=== PATIENT | male | born 1965 | race Caucasian/White ===

== ENCOUNTER 2016-09-03 17:31 | Inpatient (IN) | payer OTHER ==
[~2016-09-03] VITALS: Ht 177.8 cm; Wt 135.6 kg
[2016-09-03] VITALS (8 sets, daily range): BP systolic 118–145; BP diastolic 55–120
[2016-09-03] MEDS ORDERED: LOSA100T28 PO (17:53)
[2016-09-03] MEDS ORDERED: OMEP40CA36 PO (17:53)
[2016-09-03] MEDS ORDERED: CHRO400T10 PO (17:53)
[2016-09-03 18:25] LABS: BASOPHILS # (AUTO) 0.1 10^3/uL (0.0-0.1); BASOPHILS % (AUTO) 1 % (0-10); EOSINOPHILS # (AUTO) 0.1 10^3/uL (0.0-0.3); EOSINOPHILS % (AUTO) 1 % (0-10); LYMPHOCYTES # (AUTO) 1.1 X 10^3 (1.0-4.0); LYMPHOCYTES % (AUTO) 12 % (12-44); MEAN CORPUSCULAR HEMOGLOBIN 26 PG (25-34); MEAN CORPUSCULAR HGB CONC 33 G/DL (32-36); MEAN CORPUSCULAR VOLUME 80 FL (80-99); MEAN PLATELET VOLUME 12.5 FL (7.4-10.4); MONOCYTES # (AUTO) 0.7 X 10^3 (0.0-1.0); MONOCYTES % (AUTO) 7 % (0-12); NEUTROPHILS # (AUTO) 7.7 X 10^3 (1.8-7.8); NEUTROPHILS % (AUTO) 80 % (42-75); PLATELET COUNT 127 10^3/uL (130-400); RED CELL DISTRIBUTION WIDTH 14.2 % (10.0-14.5); WHITE BLOOD COUNT 9.6 10^3/uL (4.3-11.0)
[2016-09-03] MEDS ORDERED: KETOROLAC 30 MG/ML VIAL IVP ONE (18:30)
--- NOTE | 2016-09-03 18:31 | ED Abdominal Pain ---
General Chief Complaint: Abdominal/GI Problems Stated Complaint: TROUBLE WALKING;STOMACH SWELLING;TROUBLE BREATHING Nursing Triage Note: patient reports bloating with diarrhea for months, getting worse the past couple of weeks. reports is having a difficulty time breathing due to the bloating Sepsis Screen: No Definite Risk Source of Information: Patient, RN Notes Reviewed Exam Limitations: No Limitations History of Present Illness Time Seen By Provider: 18:26 Initial Comments Patient presents c/ c/o abdominal bloating/pain that began couple months ago and has gradually worsened, especially the last 2-3 weeks. Having diarrhea but patient states that is from the laxatives he has been taking for the bloating. Subjective fever last 2 weeks. (+) nausea, but no vomiting, although states he thinks he'd feel a lot better if he could throw up. Denies any problems garza. Never had anything like this before. Did have back surgery where they went both anteriorly thru his abdomen, as well as posteriorly. Pain described as cramping and rated @ a 3/10. Side note, patient is diabetic but can't afford his diabetic medication, so isn't taking anything. Apparently hasn't seen a doctor in quite sometime. Timing/Duration: Getting Worse, Other (see above) Severity/Quality: Mild (3/10) Location: Periumbilical Radiation: No Radiation Activities at Onset: None Modifying Factors: Worsens With Movement Associated Symptoms: Shortness of Air, Swelling/Mass in Abdomen, Other (nausea s/ vomiting; hot and cold flashes; diarrhea) Allergies and Home Medications Allergies Coded Allergies: oxycodone (Verified Adverse Reaction, Unknown, NAUSEA, 09/03/16) Home Medications Chromium Amino Acid Chelate 400 Mcg Tablet, 400 MCG PO, (Reported) Losartan Potassium 100 Mg Tablet, 100 MG PO DAILY, (Reported) Omeprazole 40 Mg Capsule.dr, 40 MG PO, (Reported) Review of Systems Constitutional: see HPI, chills (hot and cold flashes last 2 weeks), fever ( subjective) Respiratory: See HPI, Shortness of Air, SOA With Exertion, SOA at Rest Gastrointestinal: See HPI, Abdomen Distended, Abdominal Pain, Diarrhea, Nausea , Denies Vomiting Endocrine: See HPI, Excessive Sweating (episodic) All Other Systems Reviewed Negative Unless Noted: Yes (Negative excepted noted.) Past Emkumcz-Fnwrge-Tupdbj Hx Patient Social History Alcohol Use: Rarely Uses Recreational Drug Use: No Smoking Status: Never a Smoker Recent Foreign Travel: No Contact w/Someone Who Travel: No Recent Infectious Disease Expo: No Surgeries Surgeries: Orthopedic Cardiovascular Cardiac Disorders: Hypertension Gastrointestinal Gastrointestinal Disorders: Gastroesophageal Reflux Endocrine Endocrine Disorders: Diabetes, Non-Insulin dep Physical Exam Vital Signs VS - Last 72 Hours, by Label 09/03/16 17:49 Temp 98.5 Pulse 112 Resp 20 B/P (MAP) 128/95 Pulse Ox 98 Capillary Refill : Less Than 3 Seconds General Appearance: WD/WN, obese, other (appears uncomfortable) HEENT: other (oral mucosa a little on the dry side) Respiratory: no respiratory distress, crackles Cardiovascular: tachycardia Gastrointestinal: distended, guarding, No rebound, tenderness, hernia (easily reducible umbilical hernia noted.) Rectal: deferred Neurologic/Psychiatric: no motor/sensory deficits, alert, oriented x 3 Skin: warm/dry Progress/Results/Core Measures Results/Orders Lab Results Laboratory Tests Test 09/03/16 17:55 09/03/16 18:46 Range/Units White Blood Count 9.6 4.3-11.0 10^3/uL Red Blood Count 5.50 4.35-5.85 10^6/uL Hemoglobin 14.4 13.3-17.7 G/DL Hematocrit 44 40-54 % Mean Corpuscular Volume 80 80-99 FL Mean Corpuscular Hemoglobin 26 25-34 PG Mean Corpuscular Hemoglobin Concent 33 32-36 G/DL Red Cell Distribution Width 14.2 10.0-14.5 % Platelet Count 127 L 130-400 10^3/uL Mean Platelet Volume 12.5 H 7.4-10.4 FL Neutrophils (%) (Auto) 80 H 42-75 % Lymphocytes (%) (Auto) 12 12-44 % Monocytes (%) (Auto) 7 0-12 % Eosinophils (%) (Auto) 1 0-10 % Basophils (%) (Auto) 1 0-10 % Neutrophils # (Auto) 7.7 1.8-7.8 X 10^3 Lymphocytes # (Auto) 1.1 1.0-4.0 X 10^3 Monocytes # (Auto) 0.7 0.0-1.0 X 10^3 Eosinophils # (Auto) 0.1 0.0-0.3 10^3/uL Basophils # (Auto) 0.1 0.0-0.1 10^3/uL D-Dimer 0.86 H 0.00-0.49 UG/ML Sodium Level 133 L 135-145 MMOL/L Potassium Level 4.8 3.6-5.0 MMOL/L Chloride Level 101 98-107 MMOL/L Carbon Dioxide Level 21 21-32 MMOL/L Anion Gap 11 5-14 MMOL/L Blood Urea Nitrogen 15 7-18 MG/DL Creatinine 1.29 0.60-1.30 MG/DL Estimat Glomerular Filtration Rate 59 BUN/Creatinine Ratio 12 Glucose Level 410 *H 70-105 MG/DL Calcium Level 8.9 8.5-10.1 MG/DL Magnesium Level 2.0 1.8-2.4 MG/DL Total Bilirubin 0.5 0.1-1.0 MG/DL Aspartate Amino Transf (AST/SGOT) 46 H 5-34 U/L Alanine Aminotransferase (ALT/SGPT) 52 0-55 U/L Alkaline Phosphatase 79 40-136 U/L Troponin I < 0.30 <0.30 NG/ML B-Type Natriuretic Peptide 264.6 H <100.0 PG/ML Total Protein 7.2 6.4-8.2 GM/DL Albumin 3.7 3.2-4.5 GM/DL Lipase 29 8-78 U/L Urine Color YELLOW Urine Clarity CLEAR Urine pH 5 5-9 Urine Specific [place] 1.015 L 1.016-1.022 Urine Protein 3+ H NEGATIVE Urine Glucose (UA) 4+ H NEGATIVE Urine Ketones NEGATIVE NEGATIVE Urine Nitrite NEGATIVE NEGATIVE Urine Bilirubin NEGATIVE NEGATIVE Urine Urobilinogen NORMAL NORMAL MG/DL Urine Leukocyte Esterase NEGATIVE NEGATIVE Urine RBC (Auto) NEGATIVE NEGATIVE Urine RBC NONE /HPF Urine WBC NONE /HPF Urine Crystals NONE /LPF Urine Bacteria NEGATIVE /HPF Urine Casts NONE /LPF Urine Mucus NEGATIVE /LPF Urine Culture Indicated NO My Orders Orders - NIKHIL YODER DO Saline Lock/Iv-Start (09/03/16 18:18) Cbc With Automated Diff (09/03/16 18:18) Comprehensive Metabolic Panel (09/03/16 18:18) Fibrin Degradation Products (09/03/16 18:19) Ua Culture If Indicated (09/03/16 18:27) Ketorolac Injection (Toradol Injection) (09/03/16 18:30) Lipase (09/03/16 17:55) Ct Abdomen/Pelvis W (09/03/16 18:45) Saline Lock/Iv-Start (09/03/16 18:46) Ns Iv 1000 Ml (Sodium Chloride 0.9%) (09/03/16 18:46) Iohexol Injection (Omnipaque 350 Mg/Ml 1 (09/03/16 19:00) Ns (Ivpb) (Sodium Chloride 0.9% Ivpb Bag (09/03/16 19:00) Ct Angio Chest W (09/03/16 19:16) Iohexol Injection (Omnipaque 350 Mg/Ml 1 (09/03/16 19:45) Ns (Ivpb) (Sodium Chloride 0.9% Ivpb Bag (09/03/16 19:45) BNP (09/03/16 20:45) Magnesium (09/03/16 20:45) Troponin I (09/03/16 20:45) Ekg Tracing (09/03/16 20:45) Medications Given in ED Current Medications Medications Dose Ordered Sig/Guille Route Start Time Stop Time Status Last Admin Dose Admin Iohexol 100 ml ONCE ONCE IV 09/03/16 19:00 09/03/16 19:01 DC 09/03/16 19:09 100 ML Iohexol 100 ml ONCE ONCE IV 09/03/16 19:45 09/03/16 19:46 DC 09/03/16 19:38 100 ML Ketorolac Tromethamine 30 mg ONCE ONCE IVP 09/03/16 18:30 09/03/16 20:33 DC 09/03/16 18:46 30 MG Sodium Chloride 100 ml ONCE ONCE IV 09/03/16 19:00 09/03/16 19:01 DC 09/03/16 19:09 80 ML Sodium Chloride 100 ml ONCE ONCE IV 09/03/16 19:45 09/03/16 19:46 DC 09/03/16 19:38 80 ML Sodium Chloride 1,000 ml @ 0 mls/hr Q0M ONCE IV 09/03/16 18:46 09/03/16 20:33 DC 09/03/16 18:51 0 MLS/HR Vital Signs/I&O Vital Sign - Last 12Hours 09/03/16 17:49 Temp 98.5 Pulse 112 Resp 20 B/P (MAP) 128/95 Pulse Ox 98 Blood Pressure Mean: 106 Progress Note : Progress Note Notified by lab of a glucose of 410. ECG Initial ECG Impression Date: Sep 03, 2016 Initial ECG Rhythm: S.Tach Initial ECG Impression: Normal Initial ECG Comparisson: No Previous ECG Available Diagnostic Imaging Diagonstic Imaging: CT Plain Films/CT/US/NM/MRI: chest, abdomen, pelvis Reviewed: Reviewed/Discussed Departure Communication Time/Spoke to Admitting Phy: 21:00 Impression Impression: Primary Impression: Abdominal pain Additional Impressions: Acute calculous cholecystitis New onset of congestive heart failure Uncontrolled NIDDM Non compliance w medication regimen Disposition: ADMITTED INPATIENT Condition: Stable Decision to Admit Reason: Admit from ER (General) Decision to Admit/Date: Sep 03, 2016 Time/Decision to Admit Time: 21:00 Departure-Patient Inst. Referrals: NO,LOCAL PHYSICIAN (PCP) Primary Care Physician NIKHIL YODER DO Sep 03, 2016 18:31
[2016-09-03 18:42] LABS: ALBUMIN 3.7 GM/DL (3.2-4.5); BILIRUBIN,TOTAL 0.5 MG/DL (0.1-1.0); CALCIUM 8.9 MG/DL (8.5-10.1); CREATININE SERUM 1.29 MG/DL (0.60-1.30); POTASSIUM 4.8 MMOL/L (3.6-5.0); TOTAL PROTEIN 7.2 GM/DL (6.4-8.2)
[2016-09-03] MEDS ORDERED: NS IV 1000 ML 1,000 ML IV ONE (18:46)
[2016-09-03] MEDS ORDERED: NS 100 ML (IVPB) BAG IV ONE ×2 (19:00→19:45)
[2016-09-03] MEDS ORDERED: IOHEXOL 350 MG/ML 100 ML (OMNIPAQUE 350) VIAL IV ONE ×2 (19:00→19:45)
[2016-09-03 19:22] LABS: BILIRUBIN,URINE NEGATIVE (NEGATIVE); KETONES,URINE NEGATIVE (NEGATIVE); LEUKOCYTE ESTERASE ,URINE NEGATIVE (NEGATIVE); NITRITE,URINE NEGATIVE (NEGATIVE); PH,URINE 5 (5-9); PROTEIN,URINE 3+ (NEGATIVE); UROBILINOGEN,URINE NORMAL (NORMAL)
--- NOTE | 2016-09-03 20:30 | Diagnostic Imaging Report ---
PROCEDURE: CT abdomen and pelvis with contrast. TECHNIQUE: Multiple contiguous axial images were obtained through the abdomen and pelvis after administration of intravenous contrast. INDICATION: Bloating. Shortness of air. Belching. COMPARISON: CT chest from same day. FINDINGS: Included views of the lung bases show small right pleural effusion. A 1 mm micronodule is also noted within the included portions of the right middle lobe. Please note, CT of the chest was also performed the same day, but separately dictated. Note is also made of septal thickening and subtle alveolar groundglass densities. CT ABDOMEN: There is abnormal appearance to the gallbladder. Gallbladder wall is abnormally thickened. There is also some stranding of the fat surrounding the gallbladder. Small amount of free fluid is also noted within the right upper abdominal quadrant (image 34, series 2). Small hypodensity within the lumen of the gallbladder on the delayed sequence suggests underlying gallstones. The liver, spleen, pancreas, adrenal glands and kidneys have a normal CT appearance. There is no free air or loculated air-fluid collection within the abdomen. There is abnormal stranding of the retroperitoneal fat extending from the right upper abdominal quadrant surrounding the gallbladder and duodenum, inferiorly, into the right hemipelvis. Small bowel loops are nondistended and normal appendix is identified. Multiple subcentimeter retroperitoneal lymph nodes are noted. A few prominent, yet subcentimeter, celiac lymph nodes are also seen. There is a dominant portacaval lymph node that measures 4.3 x 2.3 cm. Bony structures show no acute abnormalities. Note is made of fat-containing umbilical hernia. Ostium measures approximately 2.7 [address] in transverse dimension. CT PELVIS: Urinary bladder is grossly unremarkable. There is no loculated fluid collection, free fluid or free air within the pelvis. No abnormal lymph nodes are seen. Bony structures show no acute abnormality. Postsurgical changes of the lumbosacral spine are noted. IMPRESSION: 1. Probable cholelithiasis with acute cholecystitis. Correlation with right upper quadrant abdominal sonogram is recommended. 2. Small right-sided pleural effusion. 3. Septal thickening with groundglass alveolar densities within the included portions of the lung bases concerning for underlying pulmonary edema. 4. Prominent portacaval lymph node and a few subcentimeter yet prominent appearing celiac lymph nodes. Findings may be reactive and related to the above. 5. Fat-containing umbilical hernia. Report was called to Indira in the [facility] ER at 8:27 p.m., by vilma. Dictated by: Dictated on workstation # [id number]
--- NOTE | 2016-09-03 20:35 | Diagnostic Imaging Report ---
PROCEDURE: CT angiography of the chest with contrast. TECHNIQUE: Multiple contiguous axial images were obtained through the chest after uneventful bolus administration of intravenous contrast. Reconstructed CTA MIP acquisitions were also performed. INDICATION: Elevated d-dimer. Shortness of air. Bloating and belching COMPARISON: CT abdomen from same day FINDINGS: There is no evidence of acute pulmonary embolus to the segmental division of the pulmonary arteries. Evaluation beyond this is suboptimal secondary to suboptimal opacification by the contrast bolus. Heart size is within normal limits. There is a small pericardial effusion. Multiple prominent mediastinal and bilateral hilar lymph nodes are identified. Largest left hilar lymph node measures 1.4 x 2.1 cm (image 55, series 5). Largest right hilar lymph node measures approximately 2.7 x 1.5 cm (image 59, series 5). Largest mediastinal lymph node measures 1.5 x 1.1 cm (image 40, series 5). No abnormal axillary adenopathy is seen. Evaluation of the lung meredith demonstrates small right pleural effusion. There is trace left effusion as well. There is diffuse prominence of the septum as well as subtle diffuse groundglass alveolar opacities. Findings are suggestive of underlying pulmonary edema. Otherwise, no focal consolidation is seen. There is no pneumothorax on either side. A 4 mm micronodule is noted within the subpleural margins of the included portion of the right middle lobe, laterally (image 95, series 5). Bony structures show age-related degenerative changes. No lytic or blastic bony lesions are seen. Included portions of the upper abdomen show multiple borderline prominent celiac and portacaval lymph nodes. Dominant portacaval lymph node seen on separately performed CT abdomen is only partially visualized on this exam. Additionally, the cholelithiasis with associated findings of probable acute cholecystitis are not included. IMPRESSION: 1. No evidence of acute pulmonary embolus to the segmental division of the pulmonary arteries. 2. Multiple prominent bilateral hilar and mediastinal lymph nodes as described above. Clinical significance and etiology is indeterminate. Clinical correlation for underlying lymphoproliferative or lympho-invasive process is recommended. Lymphoma should be considered within the differential. 3. Small pericardial effusion and small bilateral effusions, right greater than left. 4. Findings consistent with pulmonary edema. 5. A 4 mm micronodule within the included portion of the right middle lobe. If patient is in a high-risk category such as history of smoking, one-year followup is recommended. Alternatively, if the patient is in a low-risk category, no additional followup may be indicated. Dictated by: Dictated on workstation # [id number]
[2016-09-03 21:09] LABS: TROPONIN I < 0.30 NG/ML (<0.30)
[2016-09-03] MEDS ORDERED: KETOROLAC 30 MG/ML VIAL IV PRN (22:45)
[2016-09-03] MEDS ORDERED: FUROSEMIDE 40 MG/4 ML INJ (LASIX) IV ONE (22:45)
[2016-09-03] MEDS ORDERED: CATHETER FLUSH 10 ML SYR IV PRN (22:45)
[2016-09-03] MEDS ORDERED: PIPERACILLIN/TAZOBACTAM 4.5 GM/NS 100 ML IV ONE ×2 (23:00)
[2016-09-03] MEDS: NS IV 1000 ML 1,000 ML IV SCH (23:07)
[2016-09-04] VITALS (27 sets, daily range): BP systolic 103–137; BP diastolic 73–120
[2016-09-04] MEDS: inSUlin ASPART (NovoLOG) 1 UNIT/0.01 ML (CHARGE PER UNIT) SC SCH ×6 (00:08→22:25)
[2016-09-04] MEDS: ONDANSETRON 4 MG/2 ML (SDV) Z0FRAN IV PRN ×3 (00:13→22:45)
[2016-09-04] MEDS: CATHETER FLUSH 10 ML SYR IV SCH ×3 (04:14→22:25)
[2016-09-04] MEDS: PIPERACILLIN/TAZOBACTAM 4.5 GM/NS 100 ML IVPB IV SCH ×6 (04:29→22:23)
[2016-09-04 04:47] LABS: BASOPHILS # (AUTO) 0.1 10^3/uL (0.0-0.1); BASOPHILS % (AUTO) 1 % (0-10); EOSINOPHILS # (AUTO) 0.2 10^3/uL (0.0-0.3); EOSINOPHILS % (AUTO) 2 % (0-10); LYMPHOCYTES # (AUTO) 1.4 X 10^3 (1.0-4.0); LYMPHOCYTES % (AUTO) 14 % (12-44); MEAN CORPUSCULAR HEMOGLOBIN 26 PG (25-34); MEAN CORPUSCULAR HGB CONC 32 G/DL (32-36); MEAN CORPUSCULAR VOLUME 80 FL (80-99); MONOCYTES # (AUTO) 0.8 X 10^3 (0.0-1.0); MONOCYTES % (AUTO) 9 % (0-12); NEUTROPHILS # (AUTO) 7.4 X 10^3 (1.8-7.8); NEUTROPHILS % (AUTO) 75 % (42-75); PLATELET COUNT 125 10^3/uL (130-400); RED BLOOD COUNT 5.31 10^6/uL (4.35-5.85); RED CELL DISTRIBUTION WIDTH 14.4 % (10.0-14.5); WHITE BLOOD COUNT 9.8 10^3/uL (4.3-11.0)
[2016-09-04] MEDS: NS IV 1000 ML 1,000 ML IV SCH ×3 (05:00→22:23)
[2016-09-04 05:17] LABS: ANION GAP 9 MMOL/L (5-14); BLOOD UREA NITROGEN 18 MG/DL (7-18); BUN/CREATININE RATIO 17; CALCIUM 8.6 MG/DL (8.5-10.1); CARBON DIOXIDE 23 MMOL/L (21-32); CHLORIDE 104 MMOL/L (98-107); CREATININE SERUM 1.05 MG/DL (0.60-1.30); GFR ESTIMATED > 60; GLUCOSE 220 MG/DL (70-105); MAGNESIUM 1.9 MG/DL (1.8-2.4); POTASSIUM 4.3 MMOL/L (3.6-5.0); SODIUM 136 MMOL/L (135-145)
[2016-09-04] MEDS ORDERED: inSUlin (REGULAR) HUMAN 1 UNIT/0.01 ML (CHARGE PER UNIT) SC SCH (06:00)
[2016-09-04] MEDS: RT-ALBUTEROL/IPRATROPIUM 3 ML (DUONEB) VIAL INH SCH ×4 (06:38→19:06)
[2016-09-04] MEDS: FAMOTIDINE 20MG/2ML IV (PEPCID) IV SCH ×2 (08:12→22:24)
[2016-09-04] MEDS ORDERED: RT-ALBUTEROL/IPRATROPIUM 3 ML (DUONEB) VIAL INH PRN (09:00)
--- NOTE | 2016-09-04 09:25 | Diagnostic Imaging Report ---
INDICATION: Abdominal pain. TECHNIQUE: Multiple grayscale sonographic images were obtained of the right upper quadrant of the abdomen. CORRELATION STUDY: None FINDINGS: LIVER: The liver measures 25 cm. There is uniform echotexture. GALLBLADDER: Gallbladder is present and demonstrates no shadowing gallstones. There is suggestion of some gallbladder wall thickening at approximately 4-5 mm. COMMON BILE DUCT: Upper limits of normal for the patient's age at 7 mm. PANCREAS: Largely obscured and not visualized. RIGHT KIDNEY: Measures 13.4 cm. No hydronephrosis. OTHER: None. IMPRESSION: 1. Hepatomegaly. 2. No shadowing gallstones, however there is suggestion of some gallbladder wall thickening as well as common bile duct being upper limits of normal. Findings are nonspecific. If further assessment is desired, particularly for evaluation of ejection fraction, nuclear medicine HIDA scan would be recommended. Dictated by: Dictated on workstation # [id number]
--- NOTE | 2016-09-04 09:31 | Diagnostic Imaging Report ---
INDICATION: Dyspnea. Comparison made with prior examination from 09/04/16 FINDINGS: There is cardiomegaly. There is some minimal venous congestion. There is no pleural effusion or pneumothorax. The mediastinum is unremarkable. IMPRESSION: Cardiomegaly and some minimal central pulmonary venous congestion. Dictated by: Dictated on workstation # [id number]
--- NOTE | 2016-09-04 09:33 | Consultation-Cardiology ---
HPI-Cardiology Cardiology Consultation Date of Consultation 09/04/16 Date of Admission Time Seen by Provider: 09:28 Indication: shortness of breath HPI 50 years old gentleman with history of hypertension, diabetes mellitus, was having increasing shortness of breath for the last 3-4 months, dyspnea with minimal exertion, his exercise ability is limited due to injury to his left leg. Has been having worsening orthopnea, denied any chest pain, for the last few days he started having increasing abdominal distention and abdominal pain. No fever or chills. No nausea or vomiting. Denied any syncope or near syncopal episode, came into the hospital, noted to have mild pulmonary edema and elevated BNP in addition to questionable cholecystitis Home Medications & Allergies Allergies: Coded Allergies: oxycodone (Verified Adverse Reaction, Unknown, NAUSEA, 09/03/16) Home Medication List Reviewed: Yes HFW-Savwyj-Nuynti Hx Patient Social History Marital Status: single Employed/Student: unemployed Alcohol Use: Denies Use Recreational Drug Use: No Smoking Status: Former Smoker Recent Foreign Travel: No Recent Infectious Disease Expo: No Recent Hopitalizations: No Physical Abuse Screen: No Sexual Abuse: No Past Medical History Past medical history as discussed below Family Medical History Family History: 19 FATHER Neoplasm (LUNG CANCER) Arthritis Colon cancer 19 MOTHER Neoplasm (PANCREATIC CANCER) Arthritis Headache disorder Thyroid disease Constitutional: see HPI, malaise, weakness EENTM: no symptoms reported, see HPI Respiratory: see HPI, dyspnea on exertion, orthopnea, short of breath Cardiovascular: see HPI, No chest pain, edema, No Hx of Intervention, No palpitations, No syncope, No vascular heart diseas, No other Gastrointestinal: RUQ, see HPI, abdominal pain (RUQ), loss of appetite Genitourinary: no symptoms reported, see HPI Musculoskeletal: see HPI, back pain, joint pain, muscle pain Skin: no symptoms reported, see HPI Psychiatric/Neurological: No Symptoms Reported, See HPI Reviewed Test Results Reviewed Test Results Lab Laboratory Tests Test 09/03/16 17:55 09/03/16 18:46 09/03/16 23:13 09/03/16 23:51 Range/Units White Blood Count 9.6 4.3-11.0 10^3/uL Red Blood Count 5.50 4.35-5.85 10^6/uL Hemoglobin 14.4 13.3-17.7 G/DL Hematocrit 44 40-54 % Mean Corpuscular Volume 80 80-99 FL Mean Corpuscular Hemoglobin 26 25-34 PG Mean Corpuscular Hemoglobin Concent 33 32-36 G/DL Red Cell Distribution Width 14.2 10.0-14.5 % Platelet Count 127 L 130-400 10^3/uL Mean Platelet Volume 12.5 H 7.4-10.4 FL Neutrophils (%) (Auto) 80 H 42-75 % Lymphocytes (%) (Auto) 12 12-44 % Monocytes (%) (Auto) 7 0-12 % Eosinophils (%) (Auto) 1 0-10 % Basophils (%) (Auto) 1 0-10 % Neutrophils # (Auto) 7.7 1.8-7.8 X 10^3 Lymphocytes # (Auto) 1.1 1.0-4.0 X 10^3 Monocytes # (Auto) 0.7 0.0-1.0 X 10^3 Eosinophils # (Auto) 0.1 0.0-0.3 10^3/uL Basophils # (Auto) 0.1 0.0-0.1 10^3/uL D-Dimer 0.86 H 0.00-0.49 UG/ML Sodium Level 133 L 135-145 MMOL/L Potassium Level 4.8 3.6-5.0 MMOL/L Chloride Level 101 98-107 MMOL/L Carbon Dioxide Level 21 21-32 MMOL/L Anion Gap 11 5-14 MMOL/L Blood Urea Nitrogen 15 7-18 MG/DL Creatinine 1.29 0.60-1.30 MG/DL Estimat Glomerular Filtration Rate 59 BUN/Creatinine Ratio 12 Glucose Level 410 *H 70-105 MG/DL Calcium Level 8.9 8.5-10.1 MG/DL Magnesium Level 2.0 1.8-2.4 MG/DL Total Bilirubin 0.5 0.1-1.0 MG/DL Aspartate Amino Transf (AST/SGOT) 46 H 5-34 U/L Alanine Aminotransferase (ALT/SGPT) 52 0-55 U/L Alkaline Phosphatase 79 40-136 U/L Troponin I < 0.30 <0.30 NG/ML B-Type Natriuretic Peptide 264.6 H <100.0 PG/ML Total Protein 7.2 6.4-8.2 GM/DL Albumin 3.7 3.2-4.5 GM/DL Lipase 29 8-78 U/L Urine Color YELLOW Urine Clarity CLEAR Urine pH 5 5-9 Urine Specific [place] 1.015 L 1.016-1.022 Urine Protein 3+ H NEGATIVE Urine Glucose (UA) 4+ H NEGATIVE Urine Ketones NEGATIVE NEGATIVE Urine Nitrite NEGATIVE NEGATIVE Urine Bilirubin NEGATIVE NEGATIVE Urine Urobilinogen NORMAL NORMAL MG/DL Urine Leukocyte Esterase NEGATIVE NEGATIVE Urine RBC (Auto) NEGATIVE NEGATIVE Urine RBC NONE /HPF Urine WBC NONE /HPF Urine Crystals NONE /LPF Urine Bacteria NEGATIVE /HPF Urine Casts NONE /LPF Urine Mucus NEGATIVE /LPF Urine Culture Indicated NO Hemoglobin A1c 10.6 H 4.5-6.2 % Glucometer 224 H 70-110 MG/DL Test 09/04/16 03:47 Range/Units White Blood Count 9.8 4.3-11.0 10^3/uL Red Blood Count 5.31 4.35-5.85 10^6/uL Hemoglobin 13.8 13.3-17.7 G/DL Hematocrit 43 40-54 % Mean Corpuscular Volume 80 80-99 FL Mean Corpuscular Hemoglobin 26 25-34 PG Mean Corpuscular Hemoglobin Concent 32 32-36 G/DL Red Cell Distribution Width 14.4 10.0-14.5 % Platelet Count 125 L 130-400 10^3/uL Mean Platelet Volume 12.0 H 7.4-10.4 FL Neutrophils (%) (Auto) 75 42-75 % Lymphocytes (%) (Auto) 14 12-44 % Monocytes (%) (Auto) 9 0-12 % Eosinophils (%) (Auto) 2 0-10 % Basophils (%) (Auto) 1 0-10 % Neutrophils # (Auto) 7.4 1.8-7.8 X 10^3 Lymphocytes # (Auto) 1.4 1.0-4.0 X 10^3 Monocytes # (Auto) 0.8 0.0-1.0 X 10^3 Eosinophils # (Auto) 0.2 0.0-0.3 10^3/uL Basophils # (Auto) 0.1 0.0-0.1 10^3/uL Sodium Level 136 135-145 MMOL/L Potassium Level 4.3 3.6-5.0 MMOL/L Chloride Level 104 98-107 MMOL/L Carbon Dioxide Level 23 21-32 MMOL/L Anion Gap 9 5-14 MMOL/L Blood Urea Nitrogen 18 7-18 MG/DL Creatinine 1.05 0.60-1.30 MG/DL Estimat Glomerular Filtration Rate > 60 BUN/Creatinine Ratio 17 Glucose Level 220 H 70-105 MG/DL Calcium Level 8.6 8.5-10.1 MG/DL Phosphorus Level 4.0 2.3-4.7 MG/DL Magnesium Level 1.9 1.8-2.4 MG/DL Physical Exam Vital Signs Vital Sign - Last 12Hours 09/03/16 09/03/16 09/04/16 17:49 22:05 06:39 Temp 98.5 Pulse 112 Resp 20 B/P (MAP) 128/95 Pulse Ox 98 O2 Delivery Room Air O2 Flow Rate 2.00 Capillary Refill : Less Than 3 Seconds General Appearance: No Apparent Distress, WD/WN Eyes: Bilateral Eye EOMI, Bilateral Eye Normal Inspection, Bilateral Eye PERRL HEENT: PERRL/EOMI, TMs Normal, Normal ENT Inspection, Pharynx Normal Neck: Full Range of Motion, Normal Inspection, Non Tender, Supple, Carotid Bruit Respiratory: Chest Non Tender, Lungs Clear, Normal Breath Sounds, No Accessory Muscle Use, No Respiratory Distress Cardiovascular: Regular Rate, Rhythm, No Edema, No Gallop, No JVD, No Murmur, Normal Peripheral Pulses Gastrointestinal: Normal Bowel Sounds, No Organomegaly, No Pulsatile Mass, Non Tender, Soft Back: Normal Inspection, No CVA Tenderness, No Vertebral Tenderness Extremity: Normal Capillary Refill, Normal Inspection, Normal Range of Motion, Non Tender, No Calf Tenderness, No Pedal Edema Neurologic/Psychiatric: Alert, Oriented x3, No Motor/Sensory Deficits, Normal Mood/Affect Skin: Normal Color, Warm/Dry Lymphatic: No Adenopathy A/P-Cardiology Admission Diagnosis shortness of breath Cholecystitis Hypertension Diabetes mellitus Assessment/Plan Increasing shortness of breath, mild pulmonary edema and elevated BNP, I will evaluate 2-D echocardiogram. Start on Lasix and evaluate his response. Mild pedal edema secondary to injury to his leg, had surgery to his leg. Abdominal pain, abdominal distention, thickened gallbladder robin and mildly dilated common bile duct, prominent liver, questionable cholecystitis, Dr. Sharp consulted. Hypertension, restart home medication monitor blood pressure Diabetes mellitus, followed and managed by primary care physician Obesity, BMI 43. Discussed weight loss. High risk for sleep apnea, consider sleep study as an outpatient. Clinical Quality Measures DVT/VTE Risk/Contraindication: Risk Factor Score Per Nursin RFS Level Per Nursing on Admit: 2=Moderate WILLIAM CHACON MD Sep 04, 2016 09:33
[2016-09-04] MEDS ORDERED: FUROSEMIDE 40 MG/4 ML INJ (LASIX) IVP NR (09:45)
--- NOTE | 2016-09-04 11:41 | Consultation ---
History of Present Illness History of Present Illness Patient Consulted On(oksana/time) 09/04/16 11:36 Date Seen by Provider: Sep 04, 2016 Time Seen by Provider: 11:36 Reason for Visit: shortness of breath History of Present Illness chief complaint shortness of breath abdominal pain. Consult requested by Dr. Austin for possible cholelithiasis cholecystitis. Patient is a 50-year-old male who presents with increasing shortness of breath and abdominal pain/distention that he's had for approximately 3 months but worsening over the last 2 or 3 weeks. Patient states that his abdomen gets more distended and uncomfortable which she rates the pain about 3 out of 10 which is currently upper generalized distribution of pain. Patient was taking some laxatives in order to help try to improve the abdominal distention and discomfort. patient has also had some nausea and also subjective fever He was having some loose stools but that has improved. He is a khn-vkghfoi-zrysjsexl diabetic with uncontrolled due to not taking his medication. He has been having shortness of breath with minimal exertion. Patient had a CT scan demonstrating operable cholelithiasis with acute cholecystitis right-sided pleural effusion concern for pulmonary edema a portacaval lymph node which may be reactive secondary to cholecystitis and umbilical hernia that was fat- containing. He then had a bladder ultrasound which demonstrated gallbladder wall thickening and the common bile duct at the upper limits of normal.patient with no other complaints at this time. He denies any vomiting sweats chills or chest pain. Allergies and Home Medications Allergies Coded Allergies: oxycodone (Verified Adverse Reaction, Unknown, NAUSEA, 09/03/16) Home Medications Chromium Amino Acid Chelate 400 Mcg Tablet, 400 MCG PO, (Reported) Losartan Potassium 100 Mg Tablet, 100 MG PO DAILY, (Reported) Omeprazole 40 Mg Capsule.dr, 40 MG PO, (Reported) Past Jijevxz-Trehst-Vwbzpj Hx Patient Social History Alcohol Use: Denies Use Recreational Drug Use: Yes (marijuana) Drug of Choice: Marijuana Smoking Status: Former Smoker Recent Foreign Travel: No Contact w/Someone Who Travel: No Recent Infectious Disease Expo: No Recent Hopitalizations: No Physical Abuse Screen: No Sexual Abuse: No Seasonal Allergies Seasonal Allergies: Yes Surgeries HX Surgeries: Yes Surgeries: Orthopedic Respiratory Respiratory Disorders: Sleep Apnea Cardiovascular Cardiac Disorders: Hypertension Reproductive System Sexually Transmitted Disease: No HIV/AIDS: No Gastrointestinal Gastrointestinal Disorders: Gastroesophageal Reflux Musculoskeletal Musculoskeletal Disorders: Arthritis, Back Injury, Fractures Endocrine Endocrine Disorders: Diabetes, Non-Insulin dep Blood Transfusions Adverse Reaction to a Blood Tr: No Family Medical History Significant Family History: No Pertinent Family Hx Family Medial History: Arthritis 19 FATHER 19 MOTHER Colon cancer 19 FATHER Headache disorder 19 MOTHER Neoplasm 19 FATHER (LUNG CANCER) 19 MOTHER (PANCREATIC CANCER) Thyroid disease 19 MOTHER Review of Systems-General Constitutional: see HPI EENTM: no symptoms reported Respiratory: see HPI Cardiovascular: no symptoms reported Gastrointestinal: see HPI Genitourinary: no symptoms reported Musculoskeletal: no symptoms reported Skin: no symptoms reported Psychiatric/Neurological: No Symptoms Reported Physical Exam-General Problems Physical Exam Vital Signs Vital Sign - Last 12Hours 09/03/16 09/03/16 09/04/16 17:49 22:05 06:39 Temp 98.5 Pulse 112 Resp 20 B/P (MAP) 128/95 Pulse Ox 98 O2 Delivery Room Air O2 Flow Rate 2.00 Capillary Refill : Less Than 3 Seconds General Appearance: no apparent distress HEENT: PERRL/EOMI, normal ENT inspection Neck: supple Respiratory: no respiratory distress, no accessory muscle use Cardiovascular: regular rate, rhythm Gastrointestinal: soft (umbilical hernia reducible, minimal tenderness on epigastric region on palpation no appreciable organomegaly) Rectal: deferred Back: no CVA tenderness Extremities: pedal edema (minimal) Skin: warm/dry Data Review Labs Laboratory Tests 09/03/16 17:55: White Blood Count 9.6, Red Blood Count 5.50, Hemoglobin 14.4, Hematocrit 44, Mean Corpuscular Volume 80, Mean Corpuscular Hemoglobin 26, Mean Corpuscular Hemoglobin Concent 33, Red Cell Distribution Width 14.2, Platelet Count 127L, Mean Platelet Volume 12.5H, Neutrophils (%) (Auto) 80H, Lymphocytes (%) (Auto) 12, Monocytes (%) (Auto) 7, Eosinophils (%) (Auto) 1, Basophils (%) (Auto) 1, Neutrophils # (Auto) 7.7, Lymphocytes # (Auto) 1.1, Monocytes # (Auto) 0.7, Eosinophils # (Auto) 0.1, Basophils # (Auto) 0.1, D-Dimer 0.86H, Sodium Level 133L, Potassium Level 4.8, Chloride Level 101, Carbon Dioxide Level 21, Anion Gap 11, Blood Urea Nitrogen 15, Creatinine 1.29, Estimat Glomerular Filtration Rate 59, BUN/Creatinine Ratio 12, Glucose Level 410*H, Calcium Level 8.9, Magnesium Level 2.0, Total Bilirubin 0.5, Aspartate Amino Transf (AST/SGOT) 46H , Alanine Aminotransferase (ALT/SGPT) 52, Alkaline Phosphatase 79, Troponin I < 0.30, B-Type Natriuretic Peptide 264.6H, Total Protein 7.2, Albumin 3.7, Lipase 29 09/03/16 18:46: Urine Color YELLOW, Urine Clarity CLEAR, Urine pH 5, Urine Specific [place] 1.015L, Urine Protein 3+H, Urine Glucose (UA) 4+H, Urine Ketones NEGATIVE, Urine Nitrite NEGATIVE, Urine Bilirubin NEGATIVE, Urine Urobilinogen NORMAL, Urine Leukocyte Esterase NEGATIVE, Urine RBC (Auto) NEGATIVE, Urine RBC NONE, Urine WBC NONE, Urine Crystals NONE, Urine Bacteria NEGATIVE, Urine Casts NONE, Urine Mucus NEGATIVE, Urine Culture Indicated NO 09/03/16 23:13: Hemoglobin A1c 10.6H 09/03/16 23:51: Glucometer 224H 09/04/16 03:47: White Blood Count 9.8, Red Blood Count 5.31, Hemoglobin 13.8, Hematocrit 43, Mean Corpuscular Volume 80, Mean Corpuscular Hemoglobin 26, Mean Corpuscular Hemoglobin Concent 32, Red Cell Distribution Width 14.4, Platelet Count 125L, Mean Platelet Volume 12.0H, Neutrophils (%) (Auto) 75, Lymphocytes (%) (Auto) 14 , Monocytes (%) (Auto) 9, Eosinophils (%) (Auto) 2, Basophils (%) (Auto) 1, Neutrophils # (Auto) 7.4, Lymphocytes # (Auto) 1.4, Monocytes # (Auto) 0.8, Eosinophils # (Auto) 0.2, Basophils # (Auto) 0.1, Sodium Level 136, Potassium Level 4.3, Chloride Level 104, Carbon Dioxide Level 23, Anion Gap 9, Blood Urea Nitrogen 18, Creatinine 1.05, Estimat Glomerular Filtration Rate > 60, BUN/ Creatinine Ratio 17, Glucose Level 220H, Calcium Level 8.6, Phosphorus Level 4.0 , Magnesium Level 1.9 Assessment/Plan Assessment/Plan Assessment/Plan Abdominal pain epigastric region, cholecystitis possible cholelithiasis., Shortness of breath, obesity, kht-ewriamf-qznuarxql diabetic, hypertension Patient is a 50-year-old male is radial artery studies demonstrating possible cholelithiasis and acute cholecystitis by CT scan with ultrasound demonstrating gallbladder wall thickening and common bile duct at upper limits of normal. I feel that with these findings his gallbladder should be removed. We discussed risk and benefits of laparoscopic cholecystectomy with intraoperative cholangiogram possible open. He understands risk and benefits and wishes to proceed. I did discuss with Dr. Arroyo who would like to get an echo that was okay with proceeding with cholecystectomy tomorrow. Patient also discussed with the patient possibly repairing umbilical hernia at the same time. Which he understands risk and benefits of that as well. Patient is to continue on Zosyn at this time. Continue medical management. Clinical Quality Measures DVT/VTE Risk/Contraindication: Risk Factor Score Per Nursin RFS Level Per Nursing on Admit: 2=Moderate KARLA PRICE DO Sep 04, 2016 11:41
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
[2016-09-04] MEDS: FUROSEMIDE 40 MG/4 ML INJ (LASIX) IVP SCH (16:27)
[2016-09-04] MEDS ORDERED: meTOprolol 5 MG/5 ML (LOPRESSOR) VIAL IV ONE (17:30)
[2016-09-04] MEDS: CARVEDILOL 3.125 MG (COREG) TABLET PO SCH (22:24)
[2016-09-04] MEDS: SACUBITRIL/VALSARTAN 24/26 MG (ENTRESTO) TABLET PO SCH (22:24)
[2016-09-05] VITALS (22 sets, daily range): BP systolic 95–148; BP diastolic 68–112
[2016-09-05] MEDS: inSUlin ASPART (NovoLOG) 1 UNIT/0.01 ML (CHARGE PER UNIT) SC SCH ×6 (00:09→22:11)
[2016-09-05] MEDS ORDERED: NITROGLYCERIN SUBLINGUAL 0.4 MG TAB (NITROSTAT) SL ONE (03:29)
[2016-09-05 03:53] LABS: BASOPHILS # (AUTO) 0.1 10^3/uL (0.0-0.1); BASOPHILS % (AUTO) 1 % (0-10); EOSINOPHILS # (AUTO) 0.1 10^3/uL (0.0-0.3); EOSINOPHILS % (AUTO) 1 % (0-10); LYMPHOCYTES # (AUTO) 1.4 X 10^3 (1.0-4.0); LYMPHOCYTES % (AUTO) 14 % (12-44); MEAN CORPUSCULAR HEMOGLOBIN 26 PG (25-34); MEAN CORPUSCULAR HGB CONC 32 G/DL (32-36); MEAN CORPUSCULAR VOLUME 80 FL (80-99); MEAN PLATELET VOLUME 11.5 FL (7.4-10.4); MONOCYTES % (AUTO) 10 % (0-12); NEUTROPHILS # (AUTO) 7.2 X 10^3 (1.8-7.8); NEUTROPHILS % (AUTO) 74 % (42-75); PLATELET COUNT 136 10^3/uL (130-400); RED BLOOD COUNT 5.23 10^6/uL (4.35-5.85); RED CELL DISTRIBUTION WIDTH 14.5 % (10.0-14.5); WHITE BLOOD COUNT 9.8 10^3/uL (4.3-11.0)
[2016-09-05] MEDS ORDERED: NITROGLYCERIN SUBLINGUAL 0.4 MG TAB (NITROSTAT) SL PRN (04:00)
[2016-09-05 04:31] LABS: ALANINE AMINOTRANSFERASE 44 U/L (0-55); ALBUMIN 3.5 GM/DL (3.2-4.5); ANION GAP 11 MMOL/L (5-14); ASPARTATE AMINO TRANSFERASE 34 U/L (5-34); BILIRUBIN,TOTAL 0.7 MG/DL (0.1-1.0); BLOOD UREA NITROGEN 16 MG/DL (7-18); BUN/CREATININE RATIO 16; CALCIUM 8.6 MG/DL (8.5-10.1); CARBON DIOXIDE 22 MMOL/L (21-32); CHLORIDE 102 MMOL/L (98-107); CHOLESTEROL 108 MG/DL (< 200); DIRECT LDL 70 MG/DL (1-129); GFR ESTIMATED > 60; GLUCOSE 165 MG/DL (70-105); MAGNESIUM 1.8 MG/DL (1.8-2.4); PHOSPHORUS 4.6 MG/DL (2.3-4.7); POTASSIUM 3.8 MMOL/L (3.6-5.0); SODIUM 135 MMOL/L (135-145); TOTAL PROTEIN 6.8 GM/DL (6.4-8.2); TRIGLYCERIDES 78 MG/DL (<150); VLDL CHOLESTEROL 16 MG/DL (5-40)
[2016-09-05 04:53] LABS: THYROID STIMULATING HORMONE 3.08 UIU/ML (0.35-4.94); TROPONIN I < 0.30 NG/ML (<0.30)
[2016-09-05] MEDS: PIPERACILLIN/TAZOBACTAM 4.5 GM/NS 100 ML IVPB IV SCH ×6 (06:17→22:10)
[2016-09-05] MEDS: FUROSEMIDE 40 MG/4 ML INJ (LASIX) IVP SCH ×2 (06:18→16:49)
[2016-09-05] MEDS: CATHETER FLUSH 10 ML SYR IV SCH ×3 (06:19→22:18)
[2016-09-05] MEDS: RT-ALBUTEROL/IPRATROPIUM 3 ML (DUONEB) VIAL INH SCH ×4 (06:43→18:05)
[2016-09-05] MEDS: FAMOTIDINE 20MG/2ML IV (PEPCID) IV SCH (08:23)
[2016-09-05] MEDS: CARVEDILOL 3.125 MG (COREG) TABLET PO SCH ×2 (08:23→22:11)
[2016-09-05] MEDS ORDERED: HEParin (CATH LAB) 2,000 ML IV ONE (08:24)
[2016-09-05] MEDS: SACUBITRIL/VALSARTAN 24/26 MG (ENTRESTO) TABLET PO SCH ×2 (08:24→22:11)
--- NOTE | 2016-09-05 08:25 | Cardiology Progress Note ---
Subjective Date Seen by Provider: Sep 05, 2016 Time Seen by Provider: 08:22 Subjective/Events-last exam patient is laying down in bed, still having mild dyspnea but feeling overall better. Denied any chest pain. No palpitation. Review of Systems General: No Chills, No Night Sweats, No Fatigue, No Malaise, No Appetite, No Other HEENT: No Head Aches, No Visual Changes, No Eye Pain, No Ear Pain, No Dysphasia , No Sinus Congestion, No Post Nasal Drip, No Sore Throat, No Other Pulmonary: Dyspnea, No Cough, No Pleuritic Chest Pain, No Other Cardiovascular: Edema, No: Chest Pain, Lt Headedness, Orthopnea, Other, Palpitations, Paroxysmal Noc. Dyspnea Objective-Cardiology Exam Last Set of Vital Signs Vital Signs 09/05/16 09/05/16 09/05/16 04:25 06:00 06:44 Temp 98.2 Pulse 96 Resp 13 B/P (MAP) 115/88 Pulse Ox 99 O2 Delivery Nasal Cannula O2 Flow Rate 2.00 Capillary Refill : Less Than 3 SecondsLess Than 3 Seconds I&O Intake and Output 09/05/16 00:00 Intake Total 3150 ml Output Total 4100 ml Balance -950 ml Intake Oral 1950 ml IV Total 1200 ml Output Urine Total 4100 ml # Voids 2 # Bowel Movements 1 General: Alert, Oriented X3, Cooperative HEENT: Atraumatic, PERRLA Neck: Supple, No Thyromegaly Lungs: Normal Air Movement, Other (bilateral rhonchi) Heart: Regular Rate, Normal S1, Normal S2, No Murmurs Abdomen: Normal Bowel Sounds, Soft, No Tenderness, No Hepatosplenomegaly, No Masses Extremities: No Clubbing, No Cyanosis, Normal Pulses, No Tenderness/Swelling, Other (peripheral edema) Skin: No Rashes, No Breakdown, No Significant Lesion Neuro: Normal Gait, Normal Speech, Strength at 5/5 X4 Ext, Normal Tone, Sensation Intact Psych/Mental Status: Mental Status NL, Mood NL Results Lab Laboratory Tests 09/05/16 03:45 A/P-Cardiology Admission Diagnosis Congestive heart failure, acute left ventricular systolic dysfunction Shortness of breath Hypertension Diabetes mellitus Assessment/Plan Congestive heart failure, ejection fraction 10-15 percent, acute left ventricular systolic dysfunction, unknown etiology, could be ischemic in nature , workup initiated, planning to proceed with cardiac catheterization, I send out tick borne pattern, started on Entresto and Coreg, continue on IV Lasix and monitor intake and output closely. Abdominal pain, abdominal distention, thickened gallbladder robin and mildly dilated common bile duct, prominent liver, questionable cholecystitis, Dr. Sharp consulted. Hypertension, continue to monitor blood pressure after starting her new medications Diabetes mellitus, followed and managed by primary care physician Obesity, BMI 43. Discussed weight loss. High risk for sleep apnea, consider sleep study as an outpatient. Clinical Quality Measures DVT/VTE Risk/Contraindication: Risk Factor Score Per Nursin RFS Level Per Nursing on Admit: 2=Moderate WILLIAM CHACON MD Sep 05, 2016 08:25
--- NOTE | 2016-09-05 08:25 | Cardiac Procedure Note-CS/ASA ---
Pre-Procedure Note Pre-Op Procedure Note H&P Reviewed The H&P was reviewed, patient examined and no changes noted. Date H&P Reviewed: Sep 05, 2016 Time H&P Reviewed: 08:25 Conscious Sedation Pre-Proced Time Reviewed: 08:25 ASA Class: 3 Airway Mallampati Classification: (ketchikan appropriate class) I. II. III, IV Lungs Heart ASA score ASA 1: a normal healthy patient ASA 2: a patient with a mild systemic disease (mid diabetes, controlled hypertension, obesity x ASA 3: a patient with a severe systemic disease that limits activity (angina , COPD, prior Myocardial infarction) ASA 4: a patient with an incapacitating disease that is a constant threat to life (CHF, renal failure) ASA 5: a moribund patient not expected to survive 24 hrs. (ruptured aneurysm) ASA 6: a declared brain patient whose organs are being harvested. For emergent operations, add the letter E after the classification Grade 3 Sedation Plan: Analgesia, Amnesia, Plan communicated to team members, Discussed options with patient/fam, Discussed risks with patient/fam Note The patient is an appropriate candidate to undergo the planned procedure, sedation, and anesthesia. The patient immediately re-assessed prior to indication. WILLIAM CHACON MD Sep 05, 2016 08:25
[2016-09-05] MEDS ORDERED: NS IV 1000 ML 1,000 ML IV SCH (08:30)
[2016-09-05] MEDS ORDERED: fentaNYL INJECTION 100 MCG/2 ML AMP ONE (08:30)
[2016-09-05] MEDS ORDERED: MIDAZOLAM 5 MG/5 ML (VERSED) VIAL ONE (08:30)
[2016-09-05] MEDS: NS IV 1000 ML 1,000 ML IV SCH ×3 (08:33→20:05)
[2016-09-05 08:41] LABS: INR 1.1 (0.8-1.4); PROTHROMBIN TIME PATIENT 14.2 SEC (12.2-14.7)
--- NOTE | 2016-09-05 09:11 | Diagnostic Imaging Report ---
INDICATION: Chest pain. EXAMINATION: Portable chest at 5:50 AM. FINDINGS: The heart size and pulmonary vascularity are within normal limits. The lungs are clear. There are no effusions or pneumothoraces. IMPRESSION: Negative chest. Dictated by: Dictated on workstation # [id number]
--- NOTE | 2016-09-05 09:28 | Cardiac Cath Report ---
Cardiac Cath Report Physician (s)/Admissions Evaluator (s) Physician WILLIAM CHACON MD Pre-Procedure Diagnosis Pre-Procedure Diagnosis: congestive heart failure Post-Procedure Note Procedure Start Date: Sep 05, 2016 Procedure Start Time: 09:00 Name of Procedure: heart catheterization Findings/Procedure Note PROCEDURE NOTE: After explaining the procedure to the patient, all pros and cons were explained, all questions were answered. The patient signed the consent and then she was placed on the cardiac catheterization laboratory. The patient was placed on the cardiac catheterization laboratory. Groin was prepped SL fashion local anesthesia was used. Sheath placed in the artery. Lauren right and left catheter were used to access the coronary system. JR was used to access the left ventricular cavity. Left vetriculogram was done. At the end of the procedure the sheath was removed. Closure device was [used ]. FINDINGS: Hemodynamics LV [ 124/34] Aorta [116/92/90 ] ANATOMY: Left Main [ is normal] Left Anterior Descending [ has mild small vessel disease distally, slow flow, nonobstructive disease] Left Circumflex [nonobstructive disease ] Right Coronory Artery [ dominant, has mild disease nonobstructive disease] LV Gram [ dilated with diffuse left ventricular hypokinesia with an ejection fraction 20 percent] CONCLUSION: 1. Severe nonischemic cardiomyopathy with ejection fraction 20 percent 2. Mild coronary artery disease nonobstructive disease DISCUSSION AND RECOMMENDATION: I will continue maximizing medical therapy. No interventions were noted. Anesthesia Type: Conscious Sedation Estimated blood loss (mL): 20 Contrast Amount: 47 Total Radiation Dose: 428 Post-Procedure Diagnosis Post-operative diagnosis: Congestive heart failure, nonischemic cardiomyopathy, acute left ventricular systolic dysfunction WILLIAM CHACON MD Sep 05, 2016 09:28
[2016-09-05] MEDS ORDERED: PATIENT MAY USE OWN MEDS, ALL PO SCH (09:30)
--- NOTE | 2016-09-05 09:33 | Progress Note ---
Subjective Date Seen by Provider: Sep 05, 2016 Time Seen by Provider: 08:00 Subjective/Events-last exam Patient states that a little bit better. Still having some dyspnea. No complaints of abdominal pain at this time. Patient echo demonstrating ejection fraction of heart at 10-15 percent. Patient going for cardiac catheterization today. No new complaints. Girlfriend at bedside. Denies any nausea vomiting fever sweats chills chest pain. Objective Exam Vital Signs Date Time Temp Pulse Resp B/P (MAP) Pulse Ox O2 Delivery O2 Flow Rate FiO2 09/05/16 07:00 100 09/05/16 06:44 99 Nasal Cannula 2.00 09/05/16 06:00 96 13 115/88 96 Nasal Cannula 2.00 09/05/16 05:00 92 11 95/68 99 Nasal Cannula 2.00 09/05/16 04:25 98.2 09/05/16 04:00 Nasal Cannula 2.00 09/05/16 04:00 94 11 119/87 99 Nasal Cannula 2.00 09/05/16 03:00 98 9 119/96 100 Nasal Cannula 2.00 09/05/16 02:21 93 24 101/90 91 Nasal Cannula 2.00 09/05/16 01:04 98.5 98 16 122/81 100 Nasal Cannula 2.00 09/05/16 01:00 91 09/05/16 00:00 Nasal Cannula 2.00 09/05/16 00:00 96 14 122/81 98 Nasal Cannula 2.00 09/04/16 23:00 101 19 111/95 96 Nasal Cannula 2.00 09/04/16 22:00 99 16 103/87 98 Room Air 09/04/16 21:00 102 28 105/75 100 Room Air 09/04/16 20:00 87 18 107/88 97 Room Air 09/04/16 20:00 Nasal Cannula 2.00 09/04/16 19:58 98.5 101 12 107/88 99 Nasal Cannula 2.00 09/04/16 19:06 93 Room Air 09/04/16 19:00 96 26 105/80 94 Room Air 09/04/16 19:00 101 09/04/16 18:00 113 45 125/101 97 Room Air 09/04/16 17:00 113 18 131/97 98 Room Air 09/04/16 16:00 93 Room Air 09/04/16 16:00 113 15 111/89 98 Room Air 09/04/16 15:00 111 19 127/102 95 Room Air 09/04/16 14:45 95 Room Air 09/04/16 14:00 109 8 124/94 95 Room Air 09/04/16 13:00 105 16 123/93 99 Room Air 09/04/16 13:00 105 09/04/16 13:00 Room Air 09/04/16 12:00 111 44 132/87 99 Room Air 09/04/16 12:00 98.8 99 Nasal Cannula 2.00 09/04/16 12:00 93 Room Air 09/04/16 11:00 111 24 126/86 98 Room Air 09/04/16 10:21 98 Nasal Cannula 2.00 09/04/16 10:00 102 12 114/87 99 Room Air 09/04/16 10:00 99 Nasal Cannula 2.00 I & O 09/05/16 07:00 Intake Total 4273 ml Output Total 5550 ml Balance -1277 ml Capillary Refill : Less Than 3 SecondsLess Than 3 Seconds General Appearance: No Apparent Distress, WD/WN, Chronically ill, Obese HEENT: PERRL/EOMI, Normal ENT Inspection, Pharynx Normal Neck: Full Range of Motion, Normal Inspection, Non Tender, Supple, Carotid Bruit Respiratory: Chest Non Tender, No Accessory Muscle Use, No Respiratory Distress Cardiovascular: Regular Rate, Rhythm Gastrointestinal: soft (umbilical hernia reducible, no significant tenderness on palpation no appreciable organomegaly) Extremity: Normal Capillary Refill, Normal Inspection, Normal Range of Motion, Non Tender, No Calf Tenderness, No Pedal Edema Neurologic/Psychiatric: Alert, Oriented x3, No Motor/Sensory Deficits, Normal Mood/Affect Skin: Normal Color, Warm/Dry Lymphatic: No Adenopathy Results Lab Laboratory Tests 09/04/16 14:10: Glucometer 244H 09/04/16 18:34: Glucometer 279H 09/04/16 18:42: Urine Opiates Screen NEGATIVE, Urine Oxycodone Screen NEGATIVE, Urine Methadone Screen NEGATIVE, Urine Propoxyphene Screen NEGATIVE, Urine Barbiturates Screen NEGATIVE, Ur Tricyclic Antidepressants Screen NEGATIVE, Urine Phencyclidine Screen NEGATIVE, Urine Amphetamines Screen NEGATIVE, Urine Methamphetamines Screen NEGATIVE, Urine Benzodiazepines Screen NEGATIVE, Urine Cocaine Screen NEGATIVE, Urine Cannabinoids Screen NEGATIVE 09/04/16 21:33: Glucometer 222H 09/05/16 00:04: Glucometer 210H 09/05/16 03:45: White Blood Count 9.8, Red Blood Count 5.23, Hemoglobin 13.6, Hematocrit 42, Mean Corpuscular Volume 80, Mean Corpuscular Hemoglobin 26, Mean Corpuscular Hemoglobin Concent 32, Red Cell Distribution Width 14.5, Platelet Count 136, Mean Platelet Volume 11.5H, Neutrophils (%) (Auto) 74, Lymphocytes (%) (Auto) 14 , Monocytes (%) (Auto) 10, Eosinophils (%) (Auto) 1, Basophils (%) (Auto) 1, Neutrophils # (Auto) 7.2, Lymphocytes # (Auto) 1.4, Monocytes # (Auto) 1.0, Eosinophils # (Auto) 0.1, Basophils # (Auto) 0.1, Sodium Level 135, Potassium Level 3.8, Chloride Level 102, Carbon Dioxide Level 22, Anion Gap 11, Blood Urea Nitrogen 16, Creatinine 1.00, Estimat Glomerular Filtration Rate > 60, BUN/ Creatinine Ratio 16, Glucose Level 165H, Calcium Level 8.6, Phosphorus Level 4.6 , Magnesium Level 1.8, Total Bilirubin 0.7, Aspartate Amino Transf (AST/SGOT) 34 , Alanine Aminotransferase (ALT/SGPT) 44, Alkaline Phosphatase 65, Troponin I < 0.30, B-Type Natriuretic Peptide 330.6H, Total Protein 6.8, Albumin 3.5, Triglycerides Level 78, Cholesterol Level 108, LDL Cholesterol Direct 70, VLDL Cholesterol 16, HDL Cholesterol 26L, Thyroid Stimulating Hormone (TSH) 3.08 09/05/16 03:54: Prothrombin Time 14.2, INR Comment 1.1, Activated Partial Thromboplast Time 32 09/05/16 04:05: Glucometer 147H 09/05/16 07:30: Troponin I < 0.30 09/05/16 08:32: Glucometer 150H Microbiology 09/03/16 MRSA Screen - Final, Complete MRSA not isolated Assessment/Plan Assessment/Plan Assessment/Plan Abdominal pain epigastric region, questionable cholecystitis possible cholelithiasis by CT scan., Shortness of breath, obesity, non-insulin- dependent diabetic, hypertension Patient is a 50-year-old male is radiological studies demonstrating possible cholelithiasis and acute cholecystitis by CT scan with ultrasound demonstrating gallbladder wall thickening and common bile duct at upper limits of normal. Patient's ejection fraction of heart was found to be 10-15 percent and going to undergo cardiac catheterization. His liver enzymes are normal and have remained normal. With new cardiac findings would further investigate heart and further investigate gallbladder once cardiac issues resolved. We'll likely repeat gallbladder ultrasound and likely order a HIDA scan. Patient on Zosyn at this time. Continue medical management. Clinical Quality Measures DVT/VTE Risk/Contraindication: Risk Factor Score Per Nursin RFS Level Per Nursing on Admit: 2=Moderate KARLA PRICE DO Sep 05, 2016 09:33
[2016-09-05] MEDS ORDERED: OMEP20TA33 PO (09:46)
[2016-09-05] MEDS ORDERED: CHRO200T2 PO (09:46)
--- NOTE | 2016-09-05 10:32 | Pulmonary Consultation ---
History of Present Illness History of Present Illness Date of Consultation 09/05/16 10:21 Date of Admission Reason for Visit: shortness of breath History of Present Illness 50yo with hx of noncompliant diabetic presented to ED secondary to worsening SOB nausea and 3/10 abdominal pain that has been persistent for about 3 months. He also complains of abdominal distention. He tried taking laxative which did not help. CT scan shows cholelithiasis with acute cholecystitis and right pleural effusion. Allergies and Home Medications Allergies Coded Allergies: oxycodone (Verified Adverse Reaction, Unknown, NAUSEA, 09/03/16) Home Medications Chromium Picolinate 200 Mcg Tablet, 200 MCG PO DAILY, (Reported) Omeprazole Magnesium 20 Mg Tablet.dr, 20 MG PO DAILY, (Reported) Past [id number]-[id number] Hx Patient Social History Alcohol Use: Denies Use Recreational Drug Use: Yes (marijuana) Drug of Choice: Marijuana Smoking Status: Former Smoker Recent Foreign Travel: No Contact w/Someone Who Travel: No Recent Infectious Disease Expo: No Recent Hopitalizations: No Physical Abuse Screen: No Sexual Abuse: No Seasonal Allergies Seasonal Allergies: Yes Surgeries HX Surgeries: Yes Surgeries: Orthopedic Respiratory Hx Respiratory Disorders: Yes Respiratory Disorders: Sleep Apnea Cardiovascular Hx Cardiac Disorders: Yes Cardiac Disorders: High Cholesterol, Hypertension Neurological Hx Neurological Disorders: No Reproductive System Sexually Transmitted Disease: No HIV/AIDS: No Genitourinary Hx Genitourinary Disorders: No Gastrointestinal Hx Gastrointestinal Disorders: Yes Gastrointestinal Disorders: Gastroesophageal Reflux Musculoskeletal Hx Musculoskeletal Disorders: Yes Musculoskeletal Disorders: Arthritis, Back Injury, Fractures Endocrine Hx Endocrine Disorders: Yes Endocrine Disorders: Diabetes, Non-Insulin dep HEENT HX ENT Disorders: No Loss of Vision: Denies Hearing Impairment: Denies Cancer Hx Cancer: No Psychosocial Hx Psychiatric Problems: No Blood Transfusions Hx Blood Disorders: No Adverse Reaction to a Blood Tr: No Reviewed Nursing Assessment Reviewed/Agree w Nursing PMH: Yes Family Medical History Significant Family History: No Pertinent Family Hx Family Medial History: Arthritis 19 FATHER 19 MOTHER Colon cancer 19 FATHER Headache disorder 19 MOTHER Neoplasm 19 FATHER (LUNG CANCER) 19 MOTHER (PANCREATIC CANCER) Thyroid disease 19 MOTHER Review of Systems Time Seen by Provider: 10:37 Constitutional: Malaise, Weakness, No: Chills, Fever, Other, Sweats Eyes: No: Conjunctivae inflammation, Eyelid inflammation, Other, Pain, Redness , Vision change ENT: No: Ear discharge, Ear pain, Mouth pain, Mouth swelling, Nose congestion, Nose discharge, Nose pain, Other, Throat pain, Throat swelling Respiratory: Cough, Dry, SOB with excertion, Shortness of breath, Wheezing Cardiovascular: Paroxysmal Noc. Dyspnea Gastrointestinal: Abdominal Pain, Constipation, Nausea, No: Vomiting Neurological: Weakness Exam Exam Vital Signs Date Time Temp Pulse Resp B/P (MAP) Pulse Ox O2 Delivery O2 Flow Rate FiO2 09/05/16 07:00 100 09/05/16 06:44 99 Nasal Cannula 2.00 09/05/16 06:00 96 13 115/88 96 Nasal Cannula 2.00 09/05/16 05:00 92 11 95/68 99 Nasal Cannula 2.00 09/05/16 04:25 98.2 09/05/16 04:00 Nasal Cannula 2.00 09/05/16 04:00 94 11 119/87 99 Nasal Cannula 2.00 09/05/16 03:00 98 9 119/96 100 Nasal Cannula 2.00 09/05/16 02:21 93 24 101/90 91 Nasal Cannula 2.00 09/05/16 01:04 98.5 98 16 122/81 100 Nasal Cannula 2.00 09/05/16 01:00 91 09/05/16 00:00 Nasal Cannula 2.00 09/05/16 00:00 96 14 122/81 98 Nasal Cannula 2.00 09/04/16 23:00 101 19 111/95 96 Nasal Cannula 2.00 09/04/16 22:00 99 16 103/87 98 Room Air 09/04/16 21:00 102 28 105/75 100 Room Air 09/04/16 20:00 87 18 107/88 97 Room Air 09/04/16 20:00 Nasal Cannula 2.00 09/04/16 19:58 98.5 101 12 107/88 99 Nasal Cannula 2.00 09/04/16 19:06 93 Room Air 09/04/16 19:00 96 26 105/80 94 Room Air 09/04/16 19:00 101 09/04/16 18:00 113 45 125/101 97 Room Air 09/04/16 17:00 113 18 131/97 98 Room Air 09/04/16 16:00 93 Room Air 09/04/16 16:00 113 15 111/89 98 Room Air 09/04/16 15:00 111 19 127/102 95 Room Air 09/04/16 14:45 95 Room Air 09/04/16 14:00 109 8 124/94 95 Room Air 09/04/16 13:00 105 16 123/93 99 Room Air 09/04/16 13:00 105 09/04/16 13:00 Room Air 09/04/16 12:00 111 44 132/87 99 Room Air 09/04/16 12:00 98.8 99 Nasal Cannula 2.00 09/04/16 12:00 93 Room Air 09/04/16 11:00 111 24 126/86 98 Room Air I & O 09/05/16 07:00 Intake Total 4273 ml Output Total 5550 ml Balance -1277 ml General Appearance: No Apparent Distress, WD/WN, Chronically ill, Obese HEENT: PERRL/EOMI, Normal ENT Inspection, Pharynx Normal Neck: Full Range of Motion, Normal Inspection, Non Tender, Supple, Carotid Bruit Respiratory: Chest Non Tender, No Accessory Muscle Use, No Respiratory Distress Cardiovascular: Regular Rate, Rhythm Capillary Refill: Less Than 3 Seconds Gastrointestinal: soft (umbilical hernia reducible, no significant tenderness on palpation no appreciable organomegaly) Extremity: Normal Capillary Refill, Normal Inspection, Normal Range of Motion, Non Tender, No Calf Tenderness, No Pedal Edema Neurologic/Psychiatric: Alert, Oriented x3, No Motor/Sensory Deficits, Normal Mood/Affect Skin: Normal Color, Warm/Dry Lymphatic: No Adenopathy Results Lab Laboratory Tests 09/03/16 17:55 09/04/16 03:47 09/05/16 03:45 Assessment/Plan Assessment/Plan Abdominal pain with possible cholecystitis -Hida scan pending -surgery following Mediastinal lymphadenopathy -repeat CT scan 8wks after discharge SOB and right pleural effusion -Monitor nonischemic CHF with EF 10-15% - probably secondary to untreated ALEXUS -PT will need sleep testing as out patient Morbid obesity NIDDM 255 Clinical Quality Measures DVT/VTE Risk/Contraindication: Risk Factor Score Per Nursin RFS Level Per Nursing on Admit: 2=Moderate IVANA SRIVASTAVA DO Sep 05, 2016 10:32
[2016-09-05] MEDS: SPIRONOLACTONE 25 MG (ALDACTONE) TAB PO SCH (11:51)
--- NOTE | 2016-09-05 13:00 | Progress Note-Hospitalist ---
Standard Progress Note Progress Notes/Assess & Plan Date Seen 09/05/16 Time Seen by Provider: 12:55 Diagnosis Assessment: Probable acute on chronic cholecystitis with questionable stone Acute abdominal pain due to gallbladder disease Diabetes mellitus [id number] hemoglobin A1c 10.6 noncompliant with treatment Obstructive sleep apnea noncompliant with treatment Morbid obesity Disability from ankle pain Assess & Plan/Chief Complaint The patient is drowsy post coronary angiograms. Dr. Arroyo performed this earlier this morning. The arteries were reported to be without significant obstruction. The pumping function was universally decreased and the left ventricular ejection fraction rated at 20 percent. The patient and his were informed that this is potentially treatable although the outcome is not foretold. Cardiology will make recommendations relative to medications. The patient is informed that he will be required to perform better with regard to treatment of his sleep apnea and diabetes. Any concerns about cholecystectomy will be deferred. Physical exam: The patient appears comfortable and sleepy. Lungs are clear to auscultation. CV is regular without murmur. Abdomen is obese. There is mild generalized tenderness to palpation. Impression: Severe nonischemic cardiomyopathy, ejection fraction 20 percent. 2.obstructive sleep apnea. 3.diabetes mellitus type II, poorly controlled with hemoglobin A1c greater than 10. 4.morbid obesity. 5.abdominal pain with gallbladder ultrasound suggestive of gallbladder pathology. Plan: Await cardiology recommendations Labs Laboratory Tests 09/03/16 17:55 09/04/16 03:47 09/05/16 03:45 GISELLA MEIER MD Sep 05, 2016 13:00
[2016-09-05] MEDS ORDERED: meTOprolol 5 MG/5 ML (LOPRESSOR) VIAL IV NR (13:50)
[2016-09-05] MEDS: ONDANSETRON 4 MG/2 ML (SDV) Z0FRAN IV PRN ×2 (14:51→21:18)
[2016-09-05] MEDS: FAMOTIDINE 20 MG (PEPCID) TABLET PO SCH (22:11)
[2016-09-06] VITALS (24 sets, daily range): BP systolic 78–193; BP diastolic 57–99
[2016-09-06] MEDS: inSUlin ASPART (NovoLOG) 1 UNIT/0.01 ML (CHARGE PER UNIT) SC SCH ×6 (00:46→20:26)
[2016-09-06] MEDS: NS IV 1000 ML 1,000 ML IV SCH ×3 (03:13→22:39)
[2016-09-06] MEDS: CATHETER FLUSH 10 ML SYR IV SCH ×3 (03:55→21:08)
[2016-09-06 03:58] LABS: ANION GAP 9 MMOL/L (5-14); BLOOD UREA NITROGEN 14 MG/DL (7-18); BUN/CREATININE RATIO 13; CALCIUM 8.6 MG/DL (8.5-10.1); CARBON DIOXIDE 28 MMOL/L (21-32); CHLORIDE 99 MMOL/L (98-107); CREATININE SERUM 1.08 MG/DL (0.60-1.30); GFR ESTIMATED > 60; GLUCOSE 118 MG/DL (70-105); MAGNESIUM 1.8 MG/DL (1.8-2.4); PHOSPHORUS 4.3 MG/DL (2.3-4.7); POTASSIUM 3.6 MMOL/L (3.6-5.0); SODIUM 136 MMOL/L (135-145)
[2016-09-06 04:04] LABS: BASOPHILS # (AUTO) 0.1 10^3/uL (0.0-0.1); BASOPHILS % (AUTO) 1 % (0-10); EOSINOPHILS # (AUTO) 0.2 10^3/uL (0.0-0.3); EOSINOPHILS % (AUTO) 2 % (0-10); LYMPHOCYTES # (AUTO) 1.6 X 10^3 (1.0-4.0); LYMPHOCYTES % (AUTO) 16 % (12-44); MEAN CORPUSCULAR HEMOGLOBIN 26 PG (25-34); MEAN CORPUSCULAR HGB CONC 32 G/DL (32-36); MEAN CORPUSCULAR VOLUME 81 FL (80-99); MEAN PLATELET VOLUME 12.2 FL (7.4-10.4); MONOCYTES % (AUTO) 10 % (0-12); NEUTROPHILS # (AUTO) 7.1 X 10^3 (1.8-7.8); NEUTROPHILS % (AUTO) 72 % (42-75); PLATELET COUNT 150 10^3/uL (130-400); RED BLOOD COUNT 5.41 10^6/uL (4.35-5.85); RED CELL DISTRIBUTION WIDTH 14.6 % (10.0-14.5); WHITE BLOOD COUNT 9.9 10^3/uL (4.3-11.0)
[2016-09-06 04:27] LABS: LYME AB G M 0.26 Index (0.00-0.89)
[2016-09-06] MEDS: PIPERACILLIN/TAZOBACTAM 4.5 GM/NS 100 ML IVPB IV SCH ×6 (06:13→21:08)
[2016-09-06] MEDS: FUROSEMIDE 40 MG/4 ML INJ (LASIX) IVP SCH ×2 (06:13→16:56)
[2016-09-06] MEDS: RT-ALBUTEROL/IPRATROPIUM 3 ML (DUONEB) VIAL INH SCH ×4 (06:26→19:49)
[2016-09-06] MEDS: FAMOTIDINE 20 MG (PEPCID) TABLET PO SCH ×2 (08:00→20:27)
[2016-09-06] MEDS: SACUBITRIL/VALSARTAN 24/26 MG (ENTRESTO) TABLET PO SCH ×2 (08:00→20:27)
[2016-09-06] MEDS: SPIRONOLACTONE 25 MG (ALDACTONE) TAB PO SCH (08:00)
[2016-09-06] MEDS: CARVEDILOL 3.125 MG (COREG) TABLET PO SCH (08:00)
[2016-09-06 08:26] LABS: LYME AB INTERP Negative (Negative)
[2016-09-06 08:27] LABS: TULAREMIA ANTIBODY 1:20
--- NOTE | 2016-09-06 08:47 | Diagnostic Imaging Report ---
INDICATION: Dyspnea, shortness of breath, chest pain. Comparison study: Chest from yesterday. FINDINGS: Heart size remains mildly enlarged with normal vascularity. Lungs are clear. There are no pleural effusions. IMPRESSION: Stable cardiomegaly. Dictated by: Dictated on workstation # [id number]
--- NOTE | 2016-09-06 10:56 | Progress Note ---
Subjective Time Seen by Provider: 09:30 Subjective/Events-last exam Patient is room recieving education on CHF. patient is a O 3. No signs of distress or discomfort is noted. Patient reports being short of breath earlier but better now. Abdomen is soft to palpation. he denies any palpable palpation over the abdomen. Objective Exam Vital Signs Date Time Temp Pulse Resp B/P (MAP) Pulse Ox O2 Delivery O2 Flow Rate FiO2 09/06/16 10:26 97 Room Air 09/06/16 09:00 101 10 127/85 100 Nasal Cannula 2.00 09/06/16 08:00 99 13 109/82 98 Nasal Cannula 2.00 09/06/16 08:00 97.6 Nasal Cannula 2.00 09/06/16 07:00 87 09/06/16 07:00 91 15 119/95 95 Nasal Cannula 2.00 09/06/16 06:27 98 Nasal Cannula 2.00 09/06/16 06:00 84 10 101/67 95 09/06/16 05:00 93 9 102/80 95 Nasal Cannula 2.00 09/06/16 04:00 Nasal Cannula 2.00 97 09/06/16 04:00 83 15 109/86 98 Nasal Cannula 2.00 09/06/16 03:00 80 8 106/89 92 Nasal Cannula 2.00 09/06/16 02:00 89 17 78/57 90 Nasal Cannula 2.00 09/06/16 01:00 85 09/06/16 01:00 85 12 92/66 96 Nasal Cannula 2.00 09/06/16 00:00 96.3 09/06/16 00:00 93 15 95/78 98 Nasal Cannula 2.00 09/06/16 00:00 Nasal Cannula 2.00 94 09/05/16 23:00 100 19 128/94 99 Nasal Cannula 2.00 09/05/16 22:00 101 19 136/101 98 Nasal Cannula 2.00 09/05/16 21:00 98 15 111/89 99 Nasal Cannula 2.00 09/05/16 20:07 97.2 103 18 115/79 100 Nasal Cannula 2.00 09/05/16 20:00 Nasal Cannula 2.00 94 09/05/16 19:00 100 09/05/16 19:00 99 13 100 Nasal Cannula 2.00 09/05/16 18:05 92 Nasal Cannula 2.00 09/05/16 18:00 93 13 109/79 96 Nasal Cannula 2.00 09/05/16 17:00 92 12 133/103 100 Nasal Cannula 2.00 09/05/16 16:00 Nasal Cannula 2.00 100 09/05/16 16:00 90 20 128/106 91 Nasal Cannula 2.00 09/05/16 15:00 86 12 106/89 100 Nasal Cannula 2.00 09/05/16 14:58 98 Nasal Cannula 3.00 09/05/16 14:00 93 13 124/91 98 Nasal Cannula 2.00 09/05/16 13:00 101 09/05/16 13:00 96 8 148/112 95 Nasal Cannula 2.00 09/05/16 12:00 Nasal Cannula 2.00 100 09/05/16 12:00 98.2 Nasal Cannula 2.00 09/05/16 11:00 96 14 136/105 Nasal Cannula 2.00 09/05/16 10:48 99 Nasal Cannula 3.00 I & O 09/06/16 07:00 Intake Total 2000 ml Output Total 4900 ml Balance -2900 ml Capillary Refill : Less Than 3 SecondsLess Than 3 Seconds General Appearance: No Apparent Distress, WD/WN, Chronically ill, Obese HEENT: PERRL/EOMI, Pharynx Normal Neck: Full Range of Motion, Normal Inspection, Non Tender, Supple Respiratory: Chest Non Tender, No Accessory Muscle Use, No Respiratory Distress Cardiovascular: Regular Rate, Rhythm Gastrointestinal: soft (umbilical hernia reducible, no significant tenderness on palpation no appreciable organomegaly) Extremity: Normal Capillary Refill, Normal Inspection, Normal Range of Motion, Non Tender, No Calf Tenderness, No Pedal Edema Neurologic/Psychiatric: Alert, Oriented x3, No Motor/Sensory Deficits, Normal Mood/Affect Skin: Normal Color, Warm/Dry Lymphatic: No Adenopathy Results Lab Laboratory Tests Test 09/04/16 14:10 09/04/16 18:34 09/04/16 18:42 09/04/16 21:33 Range/Units Glucometer 244 H 279 H 222 H 70-110 MG/DL Urine Opiates Screen NEGATIVE NEGATIVE Urine Oxycodone Screen NEGATIVE NEGATIVE Urine Methadone Screen NEGATIVE NEGATIVE Urine Propoxyphene Screen NEGATIVE NEGATIVE Urine Barbiturates Screen NEGATIVE NEGATIVE Ur Tricyclic Antidepressants Screen NEGATIVE NEGATIVE Urine Phencyclidine Screen NEGATIVE NEGATIVE Urine Amphetamines Screen NEGATIVE NEGATIVE Urine Methamphetamines Screen NEGATIVE NEGATIVE Urine Benzodiazepines Screen NEGATIVE NEGATIVE Urine Cocaine Screen NEGATIVE NEGATIVE Urine Cannabinoids Screen NEGATIVE NEGATIVE Test 09/05/16 00:04 09/05/16 03:45 09/05/16 03:54 09/05/16 04:05 Range/Units Glucometer 210 H 147 H 70-110 MG/DL White Blood Count 9.8 4.3-11.0 10^3/uL Red Blood Count 5.23 4.35-5.85 10^6/uL Hemoglobin 13.6 13.3-17.7 G/DL Hematocrit 42 40-54 % Mean Corpuscular Volume 80 80-99 FL Mean Corpuscular Hemoglobin 26 25-34 PG Mean Corpuscular Hemoglobin Concent 32 32-36 G/DL Red Cell Distribution Width 14.5 10.0-14.5 % Platelet Count 136 130-400 10^3/uL Mean Platelet Volume 11.5 H 7.4-10.4 FL Neutrophils (%) (Auto) 74 42-75 % Lymphocytes (%) (Auto) 14 12-44 % Monocytes (%) (Auto) 10 0-12 % Eosinophils (%) (Auto) 1 0-10 % Basophils (%) (Auto) 1 0-10 % Neutrophils # (Auto) 7.2 1.8-7.8 X 10^3 Lymphocytes # (Auto) 1.4 1.0-4.0 X 10^3 Monocytes # (Auto) 1.0 0.0-1.0 X 10^3 Eosinophils # (Auto) 0.1 0.0-0.3 10^3/uL Basophils # (Auto) 0.1 0.0-0.1 10^3/uL Sodium Level 135 135-145 MMOL/L Potassium Level 3.8 3.6-5.0 MMOL/L Chloride Level 102 98-107 MMOL/L Carbon Dioxide Level 22 21-32 MMOL/L Anion Gap 11 5-14 MMOL/L Blood Urea Nitrogen 16 7-18 MG/DL Creatinine 1.00 0.60-1.30 MG/DL Estimat Glomerular Filtration Rate > 60 BUN/Creatinine Ratio 16 Glucose Level 165 H 70-105 MG/DL Calcium Level 8.6 8.5-10.1 MG/DL Phosphorus Level 4.6 2.3-4.7 MG/DL Magnesium Level 1.8 1.8-2.4 MG/DL Total Bilirubin 0.7 0.1-1.0 MG/DL Aspartate Amino Transf (AST/SGOT) 34 5-34 U/L Alanine Aminotransferase (ALT/SGPT) 44 0-55 U/L Alkaline Phosphatase 65 40-136 U/L Troponin I < 0.30 <0.30 NG/ML B-Type Natriuretic Peptide 330.6 H <100.0 PG/ML Total Protein 6.8 6.4-8.2 GM/DL Albumin 3.5 3.2-4.5 GM/DL Triglycerides Level 78 <150 MG/DL Cholesterol Level 108 < 200 MG/DL LDL Cholesterol Direct 70 1-129 MG/DL VLDL Cholesterol 16 5-40 MG/DL HDL Cholesterol 26 L 40-60 MG/DL Thyroid Stimulating Hormone (TSH) 3.08 0.35-4.94 UIU/ML Prothrombin Time 14.2 12.2-14.7 SEC INR Comment 1.1 0.8-1.4 Activated Partial Thromboplast Time 32 24-35 SEC Test 09/05/16 07:30 09/05/16 08:32 09/05/16 11:52 09/05/16 16:32 Range/Units Troponin I < 0.30 <0.30 NG/ML Glucometer 150 H 171 H 258 H 70-110 MG/DL Test 09/05/16 20:13 09/06/16 00:44 09/06/16 03:30 Range/Units Glucometer 234 H 182 H 70-110 MG/DL White Blood Count 9.9 4.3-11.0 10^3/uL Red Blood Count 5.41 4.35-5.85 10^6/uL Hemoglobin 14.0 13.3-17.7 G/DL Hematocrit 44 40-54 % Mean Corpuscular Volume 81 80-99 FL Mean Corpuscular Hemoglobin 26 25-34 PG Mean Corpuscular Hemoglobin Concent 32 32-36 G/DL Red Cell Distribution Width 14.6 H 10.0-14.5 % Platelet Count 150 130-400 10^3/uL Mean Platelet Volume 12.2 H 7.4-10.4 FL Neutrophils (%) (Auto) 72 42-75 % Lymphocytes (%) (Auto) 16 12-44 % Monocytes (%) (Auto) 10 0-12 % Eosinophils (%) (Auto) 2 0-10 % Basophils (%) (Auto) 1 0-10 % Neutrophils # (Auto) 7.1 1.8-7.8 X 10^3 Lymphocytes # (Auto) 1.6 1.0-4.0 X 10^3 Monocytes # (Auto) 1.0 0.0-1.0 X 10^3 Eosinophils # (Auto) 0.2 0.0-0.3 10^3/uL Basophils # (Auto) 0.1 0.0-0.1 10^3/uL Sodium Level 136 135-145 MMOL/L Potassium Level 3.6 3.6-5.0 MMOL/L Chloride Level 99 98-107 MMOL/L Carbon Dioxide Level 28 21-32 MMOL/L Anion Gap 9 5-14 MMOL/L Blood Urea Nitrogen 14 7-18 MG/DL Creatinine 1.08 0.60-1.30 MG/DL Estimat Glomerular Filtration Rate > 60 BUN/Creatinine Ratio 13 Glucose Level 118 H 70-105 MG/DL Calcium Level 8.6 8.5-10.1 MG/DL Phosphorus Level 4.3 2.3-4.7 MG/DL Magnesium Level 1.8 1.8-2.4 MG/DL Laboratory Tests 09/05/16 11:52: Glucometer 171H 09/05/16 16:32: Glucometer 258H 09/05/16 20:13: Glucometer 234H 09/06/16 00:44: Glucometer 182H 09/06/16 03:30: White Blood Count 9.9, Red Blood Count 5.41, Hemoglobin 14.0, Hematocrit 44, Mean Corpuscular Volume 81, Mean Corpuscular Hemoglobin 26, Mean Corpuscular Hemoglobin Concent 32, Red Cell Distribution Width 14.6H, Platelet Count 150, Mean Platelet Volume 12.2H, Neutrophils (%) (Auto) 72, Lymphocytes (%) (Auto) 16 , Monocytes (%) (Auto) 10, Eosinophils (%) (Auto) 2, Basophils (%) (Auto) 1, Neutrophils # (Auto) 7.1, Lymphocytes # (Auto) 1.6, Monocytes # (Auto) 1.0, Eosinophils # (Auto) 0.2, Basophils # (Auto) 0.1, Sodium Level 136, Potassium Level 3.6, Chloride Level 99, Carbon Dioxide Level 28, Anion Gap 9, Blood Urea Nitrogen 14, Creatinine 1.08, Estimat Glomerular Filtration Rate > 60, BUN/ Creatinine Ratio 13, Glucose Level 118H, Calcium Level 8.6, Phosphorus Level 4.3 , Magnesium Level 1.8 Microbiology 09/03/16 MRSA Screen - Final, Complete MRSA not isolated Assessment/Plan Assessment/Plan Assessment/Plan Abdominal pain epigastric region, questionable cholecystitis possible cholelithiasis by CT scan., Shortness of breath, obesity, [id number] diabetic, hypertension Due to low EF of the heart and other cardiac findings, no surgery planned at this time. We'll likely repeat gallbladder ultrasound and likely order a HIDA scan once cardiac issues resolved. Lila- patient feeling better today. He is not having any abdominal pain. Denies n/v fever sweats chills or chest pain. Breathing improving. general no acute distress heart reg lungs nonlabored abdomen soft nontender reducible umbilical hernia ext nontender, slight edema normal mood affect alert and oriented CHF with ef of 10-15% umbilical hernia reducible possible cholelithiasis with thickened gallbladder patient not having any pain on abdomen at this time, his labs not indicative of gb disease, but does have thickened gb wall by u/s With cardiac issues at this time I discussed with Dr. Arroyo and we agree Gallbladder needs to wait, and I would work it up further with repeat u/s and HIDA scan once cardiac issues improved. Clinical Quality Measures DVT/VTE Risk/Contraindication: Risk Factor Score Per Nursin RFS Level Per Nursing on Admit: 2=Moderate TORITO FRANCE APRN Sep 06, 2016 10:56 KARLA PRICE DO Sep 06, 2016 15:00
--- NOTE | 2016-09-06 11:51 | Cardiology Progress Note ---
Subjective Date Seen by Provider: Sep 06, 2016 Time Seen by Provider: 11:48 Subjective/Events-last exam patient is still having some shortness of breath, denied any chest pain, denied any palpitation. We had a long discussion about his condition. Explained about his history about 20 years ago going to [facility] for workup for possible lupus or Lyme disease and expressed that the workup was negative Review of Systems General: No Chills, No Night Sweats, No Fatigue, No Malaise, No Appetite, No Other HEENT: No Head Aches, No Visual Changes, No Eye Pain, No Ear Pain, No Dysphasia , No Sinus Congestion, No Post Nasal Drip, No Sore Throat, No Other Pulmonary: Dyspnea, No Cough, No Pleuritic Chest Pain, No Other Cardiovascular: No: Chest Pain, Edema, Lt Headedness, Orthopnea, Other, Palpitations, Paroxysmal Noc. Dyspnea Objective-Cardiology Exam Last Set of Vital Signs Vital Signs 09/06/16 09/06/16 09/06/16 09/06/16 04:00 08:00 09:00 10:26 Temp 97.6 Pulse 101 Resp 10 B/P (MAP) 127/85 Pulse Ox 97 O2 Delivery Room Air O2 Flow Rate 2.00 FiO2 97 Capillary Refill : Less Than 3 SecondsLess Than 3 Seconds I&O Intake and Output 09/06/16 00:00 Intake Total 2973 ml Output Total 5750 ml Balance -2777 ml Intake Oral 1700 ml IV Total 1273 ml Output Urine Total 5750 ml # Emeses 1 General: Alert, Oriented X3, Cooperative HEENT: Atraumatic, PERRLA Neck: Supple, No Thyromegaly Lungs: Clear to Auscultation, Normal Air Movement Heart: Regular Rate, Normal S1, Normal S2, No Murmurs Abdomen: Normal Bowel Sounds, Soft, No Tenderness, No Hepatosplenomegaly, No Masses Extremities: No Clubbing, No Cyanosis, Normal Pulses, No Tenderness/Swelling, Other (peripheral edema) Skin: No Rashes, No Breakdown, No Significant Lesion Neuro: Normal Gait, Normal Speech, Strength at 5/5 X4 Ext, Normal Tone, Sensation Intact Psych/Mental Status: Mental Status NL, Mood NL Results Lab Laboratory Tests 09/06/16 03:30 A/P-Cardiology Admission Diagnosis Congestive heart failure, acute left ventricular systolic dysfunction Shortness of breath Hypertension Diabetes mellitus Assessment/Plan Congestive heart failure, ejection fraction 10-15 percent, acute left ventricular systolic dysfunction, unknown etiology, nonischemic cardiomyopathy, Lyme titers are negative, tularemia is borderline, currently on beta blockers and Entresto. I will increase Coreg dose to achieve better heart rate and blood pressure control Proteinuria, patient reports having chronic proteinuria, he had workup done at [facility] about 20 years ago for possible lupus or Lyme disease and expressed that the workup was negative. No further workup done recently. Still having positive proteinuria. Sinus tachycardia, I will increase Coreg and evaluate his tolerance and response Abdominal pain, abdominal distention, thickened gallbladder robin and mildly dilated common bile duct, prominent liver, questionable cholecystitis, Dr. Sharp consulted. Hypertension, continue to monitor blood pressure Diabetes mellitus, followed and managed by primary care physician Obesity, BMI 43. Discussed weight loss. High risk for sleep apnea, consider sleep study as an outpatient. Dr Topete is covering me starting tomorrow Clinical Quality Measures DVT/VTE Risk/Contraindication: Risk Factor Score Per Nursin RFS Level Per Nursing on Admit: 2=Moderate WILLIAM CHACON MD Sep 06, 2016 11:51
[2016-09-06 13:27] LABS: EHRLICHIA CHAFFEENSIS G ABY 1:32 (<1:16)
--- NOTE | 2016-09-06 14:33 | Progress Note-Hospitalist ---
Standard Progress Note Progress Notes/Assess & Plan Date Seen 09/06/16 Time Seen by Provider: 14:28 Diagnosis Assessment: Probable acute on chronic cholecystitis with questionable stone Acute abdominal pain due to gallbladder disease Diabetes mellitus [id number] hemoglobin A1c 10.6 noncompliant with treatment Obstructive sleep apnea noncompliant with treatment Morbid obesity Disability from ankle pain Assess & Plan/Chief Complaint The patient reports that he is feeling reasonably well. He states he is slightly more breathless today than yesterday. A defibrillator vest has been ordered. Discharge planning will hinge on its arrival. Vital signs are stable. He has not been out of bed yet. Physical exam: He is alert and oriented. His color is pink and his SaO2 is in the high 90s. Lungs are clear to auscultation. CV is regular without murmur. Abdomen is obese. There is a 2 cm in diameter umbilical hernia noted. Impression: Nonischemic cardiomyopathy, ejection fraction 20 percent or less. Plan: Await arrival of defibrillator vest Labs Laboratory Tests 09/05/16 03:45 09/06/16 03:30 GISELLA MEIER MD Sep 06, 2016 14:33
--- NOTE | 2016-09-06 14:46 | Pulmonary Progress Note ---
Subjective Time Seen by Provider: 14:45 Subjective/Events-last exam No complications noted currently Exam Exam Vital Signs Date Time Temp Pulse Resp B/P (MAP) Pulse Ox O2 Delivery O2 Flow Rate FiO2 09/06/16 14:00 105 9 110/62 95 Nasal Cannula 2.00 09/06/16 13:00 103 20 131/90 100 Nasal Cannula 2.00 09/06/16 12:00 95 12 119/87 100 Nasal Cannula 2.00 09/06/16 12:00 97.6 Nasal Cannula 2.00 09/06/16 12:00 Nasal Cannula 2.00 99 09/06/16 11:00 98 12 118/93 99 Nasal Cannula 2.00 09/06/16 10:26 97 Room Air 09/06/16 10:00 98 12 118/93 100 Nasal Cannula 2.00 09/06/16 09:00 101 10 127/85 100 Nasal Cannula 2.00 09/06/16 08:00 99 13 109/82 98 Nasal Cannula 2.00 09/06/16 08:00 Nasal Cannula 2.00 98 09/06/16 08:00 97.6 Nasal Cannula 2.00 09/06/16 07:00 87 09/06/16 07:00 91 15 119/95 95 Nasal Cannula 2.00 09/06/16 06:27 98 Nasal Cannula 2.00 09/06/16 06:00 84 10 101/67 95 09/06/16 05:00 93 9 102/80 95 Nasal Cannula 2.00 09/06/16 04:00 Nasal Cannula 2.00 97 09/06/16 04:00 83 15 109/86 98 Nasal Cannula 2.00 09/06/16 03:00 80 8 106/89 92 Nasal Cannula 2.00 09/06/16 02:00 89 17 78/57 90 Nasal Cannula 2.00 09/06/16 01:00 85 09/06/16 01:00 85 12 92/66 96 Nasal Cannula 2.00 09/06/16 00:00 96.3 09/06/16 00:00 93 15 95/78 98 Nasal Cannula 2.00 09/06/16 00:00 Nasal Cannula 2.00 94 09/05/16 23:00 100 19 128/94 99 Nasal Cannula 2.00 09/05/16 22:00 101 19 136/101 98 Nasal Cannula 2.00 09/05/16 21:00 98 15 111/89 99 Nasal Cannula 2.00 09/05/16 20:07 97.2 103 18 115/79 100 Nasal Cannula 2.00 09/05/16 20:00 Nasal Cannula 2.00 94 09/05/16 19:00 100 09/05/16 19:00 99 13 100 Nasal Cannula 2.00 09/05/16 18:05 92 Nasal Cannula 2.00 09/05/16 18:00 93 13 109/79 96 Nasal Cannula 2.00 09/05/16 17:00 92 12 133/103 100 Nasal Cannula 2.00 09/05/16 16:00 Nasal Cannula 2.00 100 09/05/16 16:00 90 20 128/106 91 Nasal Cannula 2.00 09/05/16 15:00 86 12 106/89 100 Nasal Cannula 2.00 09/05/16 14:58 98 Nasal Cannula 3.00 I & O 09/06/16 07:00 Intake Total 2000 ml Output Total 4900 ml Balance -2900 ml General Appearance: No Apparent Distress, WD/WN, Chronically ill, Obese HEENT: PERRL/EOMI, Pharynx Normal Neck: Full Range of Motion, Normal Inspection, Non Tender, Supple Respiratory: Chest Non Tender, No Accessory Muscle Use, No Respiratory Distress Cardiovascular: Regular Rate, Rhythm Capillary Refill: Less Than 3 Seconds Gastrointestinal: soft (umbilical hernia reducible, no significant tenderness on palpation no appreciable organomegaly) Extremity: Normal Capillary Refill, Normal Inspection, Normal Range of Motion, Non Tender, No Calf Tenderness, No Pedal Edema Neurologic/Psychiatric: Alert, Oriented x3, No Motor/Sensory Deficits, Normal Mood/Affect Skin: Normal Color, Warm/Dry Lymphatic: No Adenopathy Results Lab Laboratory Tests 09/05/16 03:45 09/06/16 03:30 Assessment/Plan Assessment/Plan Abdominal pain with possible cholecystitis -surgery following Mediastinal lymphadenopathy -repeat CT scan 8wks after discharge SOB and right pleural effusion -Monitor nonischemic CHF with EF 10-15% - probably secondary to untreated ALEXUS -PT will need sleep testing as out patient Morbid obesity NIDDM 232 Clinical Quality Measures DVT/VTE Risk/Contraindication: Risk Factor Score Per Nursin RFS Level Per Nursing on Admit: 2=Moderate IVANA SRIVASTAVA DO Sep 06, 2016 14:46
[2016-09-06 15:45] LABS: IGG ROCKY MOUNTAIN SPOTTED FEV <1:16 (<1:16); IGM ROCKY MOUNTAIN SPOTTED FEV <1:10 (<1:10)
[2016-09-06] MEDS: CARVEDILOL 6.25 MG (COREG) TAB PO SCH (20:27)
[2016-09-07] VITALS (16 sets, daily range): BP systolic 89–141; BP diastolic 65–102
[2016-09-07] MEDS: inSUlin ASPART (NovoLOG) 1 UNIT/0.01 ML (CHARGE PER UNIT) SC SCH ×2 (00:02→04:08)
[2016-09-07] MEDS: PIPERACILLIN/TAZOBACTAM 4.5 GM/NS 100 ML IVPB IV SCH ×4 (04:09→12:31)
[2016-09-07 04:41] LABS: BASOPHILS # (AUTO) 0.1 10^3/uL (0.0-0.1); BASOPHILS % (AUTO) 1 % (0-10); EOSINOPHILS # (AUTO) 0.2 10^3/uL (0.0-0.3); EOSINOPHILS % (AUTO) 2 % (0-10); LYMPHOCYTES # (AUTO) 1.5 X 10^3 (1.0-4.0); LYMPHOCYTES % (AUTO) 18 % (12-44); MEAN CORPUSCULAR HEMOGLOBIN 26 PG (25-34); MEAN CORPUSCULAR HGB CONC 32 G/DL (32-36); MEAN CORPUSCULAR VOLUME 82 FL (80-99); MEAN PLATELET VOLUME 11.9 FL (7.4-10.4); MONOCYTES # (AUTO) 0.9 X 10^3 (0.0-1.0); MONOCYTES % (AUTO) 10 % (0-12); NEUTROPHILS # (AUTO) 5.9 X 10^3 (1.8-7.8); NEUTROPHILS % (AUTO) 69 % (42-75); PLATELET COUNT 165 10^3/uL (130-400); RED BLOOD COUNT 5.29 10^6/uL (4.35-5.85); RED CELL DISTRIBUTION WIDTH 14.7 % (10.0-14.5); WHITE BLOOD COUNT 8.5 10^3/uL (4.3-11.0)
[2016-09-07 04:52] LABS: ANION GAP 10 MMOL/L (5-14); BLOOD UREA NITROGEN 17 MG/DL (7-18); BUN/CREATININE RATIO 15; CALCIUM 8.6 MG/DL (8.5-10.1); CARBON DIOXIDE 28 MMOL/L (21-32); CHLORIDE 100 MMOL/L (98-107); CREATININE SERUM 1.12 MG/DL (0.60-1.30); GFR ESTIMATED > 60; GLUCOSE 113 MG/DL (70-105); MAGNESIUM 1.8 MG/DL (1.8-2.4); PHOSPHORUS 4.4 MG/DL (2.3-4.7); POTASSIUM 3.6 MMOL/L (3.6-5.0); SODIUM 138 MMOL/L (135-145)
[2016-09-07] MEDS: CATHETER FLUSH 10 ML SYR IV SCH ×2 (05:23→14:00)
[2016-09-07] MEDS ORDERED: KCL 20 MEQ TAB (K-DUR) PO SCH (06:00)
[2016-09-07] MEDS ORDERED: POTASSIUM CL 10MEQ/50ML IVPB 50 ML IV SCH (06:00)
[2016-09-07] MEDS ORDERED: MAGNESIUM 1 GM/100 ML IVPB 100 ML IV SCH (06:00)
[2016-09-07] MEDS ORDERED: KCL 20 MEQ TAB (K-DUR) PO ONE ×2 (06:02→07:00)
[2016-09-07] MEDS: RT-ALBUTEROL/IPRATROPIUM 3 ML (DUONEB) VIAL INH SCH (06:06)
[2016-09-07] MEDS: FUROSEMIDE 40 MG/4 ML INJ (LASIX) IVP SCH (06:10)
--- NOTE | 2016-09-07 08:29 | Diagnostic Imaging Report ---
Portable erect AP chest at 417 hours. INDICATION: Dyspnea. FINDINGS: The cardiomegaly noted on the prior exam of 09/06/16 is again evident and no different. In the interval since the prior study, a small area of increased density has developed near the apex of the heart. This may merely be secondary to superimposition. The possibility that there is now an element of mild pneumonia/atelectasis should still be considered, however. The lungs are otherwise clear. The mediastinum is not widened. The osseous structures are intact. IMPRESSION: A small area of increased density has developed near the apex of the heart. This finding is questionable for a new focus of pneumonia/atelectasis. Clinical followup is recommended. Dictated by: Dictated on workstation # [id number]
[2016-09-07] MEDS: NS IV 1000 ML 1,000 ML IV SCH (08:45)
[2016-09-07] MEDS ORDERED: FUROSEMIDE 40 MG (LASIX) TAB PO SCH (09:15)
[2016-09-07] MEDS ORDERED: glyBURIDE 2.5 MG (MICRONASE) TAB PO SCH (09:15)
--- NOTE | 2016-09-07 09:21 | Progress Note ---
Subjective Time Seen by Provider: 08:15 Subjective/Events-last exam Patient resting in room. at bedside. Recieving education from RN about ALEXUS. Denies any abd pain at this time. Was having some pain after he ate breakfast. No signs of nausea or vomiting. Objective Exam Vital Signs Date Time Temp Pulse Resp B/P (MAP) Pulse Ox O2 Delivery O2 Flow Rate FiO2 09/07/16 08:20 96.8 100 13 126/87 98 Nasal Cannula 2.00 09/07/16 07:00 98 09/07/16 06:06 99 09/07/16 06:06 99 Nasal Cannula 2.00 09/07/16 06:00 84 13 89/65 92 Nasal Cannula 2.00 09/07/16 05:00 92 15 92/72 96 Nasal Cannula 2.00 09/07/16 04:00 98.5 89 10 96/70 97 Nasal Cannula 2.00 09/07/16 04:00 Nasal Cannula 2.00 100 09/07/16 03:00 93 14 115/83 94 Nasal Cannula 2.00 09/07/16 02:00 96 23 101/73 97 Nasal Cannula 2.00 09/07/16 01:00 89 13 103/68 90 Nasal Cannula 2.00 09/07/16 01:00 87 09/07/16 00:00 97.9 94 12 100/75 96 Nasal Cannula 2.00 09/07/16 00:00 Nasal Cannula 2.00 97 09/06/16 23:00 100 26 92/78 95 Nasal Cannula 2.00 09/06/16 22:00 103 14 119/93 99 Nasal Cannula 2.00 09/06/16 21:00 108 19 131/90 98 Nasal Cannula 2.00 09/06/16 20:00 105 12 121/90 96 Nasal Cannula 2.00 09/06/16 19:49 98 Nasal Cannula 2.00 09/06/16 19:40 Nasal Cannula 2.00 97 09/06/16 19:00 113 09/06/16 19:00 97.7 112 13 126/87 97 Nasal Cannula 2.00 09/06/16 18:00 94 15 156/81 96 Nasal Cannula 2.00 09/06/16 17:00 99 14 193/99 97 Nasal Cannula 2.00 09/06/16 16:00 Nasal Cannula 2.00 100 09/06/16 16:00 104 16 116/92 96 Nasal Cannula 2.00 09/06/16 15:40 97 Nasal Cannula 2.00 09/06/16 15:00 104 17 120/86 98 Nasal Cannula 2.00 09/06/16 14:00 105 9 110/62 95 Nasal Cannula 2.00 09/06/16 13:00 103 20 131/90 100 Nasal Cannula 2.00 09/06/16 13:00 103 09/06/16 12:00 95 12 119/87 100 Nasal Cannula 2.00 09/06/16 12:00 97.6 Nasal Cannula 2.00 09/06/16 12:00 Nasal Cannula 2.00 99 09/06/16 11:00 98 12 118/93 99 Nasal Cannula 2.00 09/06/16 10:26 97 Room Air 09/06/16 10:00 98 12 118/93 100 Nasal Cannula 2.00 I & O 09/07/16 07:00 Intake Total 5650 ml Output Total 6550 ml Balance -900 ml Capillary Refill : Less Than 3 SecondsLess Than 3 Seconds General Appearance: No Apparent Distress, WD/WN, Chronically ill, Obese HEENT: PERRL/EOMI, Pharynx Normal Neck: Full Range of Motion, Normal Inspection, Non Tender, Supple Respiratory: Chest Non Tender, No Accessory Muscle Use, No Respiratory Distress Cardiovascular: Regular Rate, Rhythm Gastrointestinal: soft (umbilical hernia reducible, no significant tenderness on palpation no appreciable organomegaly) Extremity: Normal Range of Motion, Non Tender, No Calf Tenderness, No Pedal Edema Neurologic/Psychiatric: Alert, Oriented x3, Normal Mood/Affect Skin: Normal Color, Warm/Dry Lymphatic: No Adenopathy Results Lab Laboratory Tests Test 09/05/16 11:52 09/05/16 16:32 09/05/16 20:13 09/06/16 00:44 Range/Units Glucometer 171 H 258 H 234 H 182 H 70-110 MG/DL Test 09/06/16 03:30 09/06/16 07:44 09/06/16 11:55 09/06/16 16:47 Range/Units White Blood Count 9.9 4.3-11.0 10^3/uL Red Blood Count 5.41 4.35-5.85 10^6/uL Hemoglobin 14.0 13.3-17.7 G/DL Hematocrit 44 40-54 % Mean Corpuscular Volume 81 80-99 FL Mean Corpuscular Hemoglobin 26 25-34 PG Mean Corpuscular Hemoglobin Concent 32 32-36 G/DL Red Cell Distribution Width 14.6 H 10.0-14.5 % Platelet Count 150 130-400 10^3/uL Mean Platelet Volume 12.2 H 7.4-10.4 FL Neutrophils (%) (Auto) 72 42-75 % Lymphocytes (%) (Auto) 16 12-44 % Monocytes (%) (Auto) 10 0-12 % Eosinophils (%) (Auto) 2 0-10 % Basophils (%) (Auto) 1 0-10 % Neutrophils # (Auto) 7.1 1.8-7.8 X 10^3 Lymphocytes # (Auto) 1.6 1.0-4.0 X 10^3 Monocytes # (Auto) 1.0 0.0-1.0 X 10^3 Eosinophils # (Auto) 0.2 0.0-0.3 10^3/uL Basophils # (Auto) 0.1 0.0-0.1 10^3/uL Sodium Level 136 135-145 MMOL/L Potassium Level 3.6 3.6-5.0 MMOL/L Chloride Level 99 98-107 MMOL/L Carbon Dioxide Level 28 21-32 MMOL/L Anion Gap 9 5-14 MMOL/L Blood Urea Nitrogen 14 7-18 MG/DL Creatinine 1.08 0.60-1.30 MG/DL Estimat Glomerular Filtration Rate > 60 BUN/Creatinine Ratio 13 Glucose Level 118 H 70-105 MG/DL Calcium Level 8.6 8.5-10.1 MG/DL Phosphorus Level 4.3 2.3-4.7 MG/DL Magnesium Level 1.8 1.8-2.4 MG/DL Glucometer 133 H 222 H 212 H 70-110 MG/DL Test 09/06/16 20:23 09/06/16 23:58 09/07/16 03:42 09/07/16 04:08 Range/Units Glucometer 217 H 165 H 117 H 70-110 MG/DL White Blood Count 8.5 4.3-11.0 10^3/uL Red Blood Count 5.29 4.35-5.85 10^6/uL Hemoglobin 13.7 13.3-17.7 G/DL Hematocrit 43 40-54 % Mean Corpuscular Volume 82 80-99 FL Mean Corpuscular Hemoglobin 26 25-34 PG Mean Corpuscular Hemoglobin Concent 32 32-36 G/DL Red Cell Distribution Width 14.7 H 10.0-14.5 % Platelet Count 165 130-400 10^3/uL Mean Platelet Volume 11.9 H 7.4-10.4 FL Neutrophils (%) (Auto) 69 42-75 % Lymphocytes (%) (Auto) 18 12-44 % Monocytes (%) (Auto) 10 0-12 % Eosinophils (%) (Auto) 2 0-10 % Basophils (%) (Auto) 1 0-10 % Neutrophils # (Auto) 5.9 1.8-7.8 X 10^3 Lymphocytes # (Auto) 1.5 1.0-4.0 X 10^3 Monocytes # (Auto) 0.9 0.0-1.0 X 10^3 Eosinophils # (Auto) 0.2 0.0-0.3 10^3/uL Basophils # (Auto) 0.1 0.0-0.1 10^3/uL Sodium Level 138 135-145 MMOL/L Potassium Level 3.6 3.6-5.0 MMOL/L Chloride Level 100 98-107 MMOL/L Carbon Dioxide Level 28 21-32 MMOL/L Anion Gap 10 5-14 MMOL/L Blood Urea Nitrogen 17 7-18 MG/DL Creatinine 1.12 0.60-1.30 MG/DL Estimat Glomerular Filtration Rate > 60 BUN/Creatinine Ratio 15 Glucose Level 113 H 70-105 MG/DL Calcium Level 8.6 8.5-10.1 MG/DL Phosphorus Level 4.4 2.3-4.7 MG/DL Magnesium Level 1.8 1.8-2.4 MG/DL Laboratory Tests 09/06/16 11:55: Glucometer 222H 09/06/16 16:47: Glucometer 212H 09/06/16 20:23: Glucometer 217H 09/06/16 23:58: Glucometer 165H 09/07/16 03:42: White Blood Count 8.5, Red Blood Count 5.29, Hemoglobin 13.7, Hematocrit 43, Mean Corpuscular Volume 82, Mean Corpuscular Hemoglobin 26, Mean Corpuscular Hemoglobin Concent 32, Red Cell Distribution Width 14.7H, Platelet Count 165, Mean Platelet Volume 11.9H, Neutrophils (%) (Auto) 69, Lymphocytes (%) (Auto) 18 , Monocytes (%) (Auto) 10, Eosinophils (%) (Auto) 2, Basophils (%) (Auto) 1, Neutrophils # (Auto) 5.9, Lymphocytes # (Auto) 1.5, Monocytes # (Auto) 0.9, Eosinophils # (Auto) 0.2, Basophils # (Auto) 0.1, Sodium Level 138, Potassium Level 3.6, Chloride Level 100, Carbon Dioxide Level 28, Anion Gap 10, Blood Urea Nitrogen 17, Creatinine 1.12, Estimat Glomerular Filtration Rate > 60, BUN/ Creatinine Ratio 15, Glucose Level 113H, Calcium Level 8.6, Phosphorus Level 4.4 , Magnesium Level 1.8 09/07/16 04:08: Glucometer 117H Microbiology 09/03/16 MRSA Screen - Final, Complete MRSA not isolated Assessment/Plan Assessment/Plan Assessment/Plan Intermittent Abdominal pain epigastric region, questionable cholecystitis possible cholelithiasis by CT scan., Shortness of breath, obesity, ahk-pwvbsge-eqnntojlh diabetic, hypertension Continue with conservative treatment to cleared by cardiology for gallbladder surgery. Outpatient gallbladder ultrasound and HIDA scan at that time. Sharp-patient has some abdominal pain but it is located around the umbilical hernia. He states it is little bit more bloated today. Patient is not having any nausea or vomiting fever sweats chills or chest pain. Patient states that he is breathing easier today. Patient family at bedside. Gen. patient's in no acute distress Heart regular Lungs clear breathing Abdomen soft is reducible umbilical hernia slight tenderness no guarding or rebounding no palpable masses no tenderness in the right upper quadrant. Extremities very minimal edema bilateral lower extremity Normal mood and affect Alert and oriented Patient with abdominal pain at umbilical site. Has an umbilical reducible hernia. Patient with initial CT and ultrasound findings that were suggestive of probable cholelithiasis cholecystitis. Ultimately the office on demonstrated just a thickened bladder wall but this could be more reactive. His liver enzymes did not indicate this and with his cardiac issues more pressing the gallbladder workup we placed on hold until further cardiac workup completed. We'll plan in near future repeating ultrasound and HIDA scan to further evaluate. If felt the patient would not be a surgical candidate would always be able to place a percutaneous cholecystostomy tube. Patient to follow up outpatient. Patient waiting on life vest prior to discharge Clinical Quality Measures DVT/VTE Risk/Contraindication: Risk Factor Score Per Nursin RFS Level Per Nursing on Admit: 2=Moderate TORITO FRANCE APRN Sep 07, 2016 09:21 KARLA SHARP DO Sep 07, 2016 12:23
[2016-09-07] MEDS: SACUBITRIL/VALSARTAN 24/26 MG (ENTRESTO) TABLET PO SCH (09:41)
[2016-09-07] MEDS: FAMOTIDINE 20 MG (PEPCID) TABLET PO SCH (09:42)
[2016-09-07] MEDS: SPIRONOLACTONE 25 MG (ALDACTONE) TAB PO SCH (09:42)
[2016-09-07] MEDS: CARVEDILOL 6.25 MG (COREG) TAB PO SCH (09:42)
[2016-09-07] MEDS ORDERED: SENNA W/DOCUSATE (SENOKOT S) TABLET PO NR (10:00)
[2016-09-07] MEDS ORDERED: RT-ALBUTEROL/IPRATROPIUM 3 ML (DUONEB) VIAL INH PRN (10:00)
[2016-09-07] MEDS ORDERED: LACTULOSE SYRUP 10GM/15ML (ENULOSE) 30ML UDC PO NR (10:00)
[2016-09-07] MEDS ORDERED: GLYB2.5T4 PO (10:24)
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
--- NOTE | 2016-09-07 11:29 | Pulmonary Progress Note ---
Subjective Time Seen by Provider: 11:28 Subjective/Events-last exam Pt is planning on going to home with life vest today. Exam Exam Vital Signs Date Time Temp Pulse Resp B/P (MAP) Pulse Ox O2 Delivery O2 Flow Rate FiO2 09/07/16 10:09 94 2.00 09/07/16 08:20 96.8 100 13 126/87 98 Nasal Cannula 2.00 09/07/16 07:00 98 09/07/16 06:06 99 09/07/16 06:06 99 Nasal Cannula 2.00 09/07/16 06:00 84 13 89/65 92 Nasal Cannula 2.00 09/07/16 05:00 92 15 92/72 96 Nasal Cannula 2.00 09/07/16 04:00 98.5 89 10 96/70 97 Nasal Cannula 2.00 09/07/16 04:00 Nasal Cannula 2.00 100 09/07/16 03:00 93 14 115/83 94 Nasal Cannula 2.00 09/07/16 02:00 96 23 101/73 97 Nasal Cannula 2.00 09/07/16 01:00 89 13 103/68 90 Nasal Cannula 2.00 09/07/16 01:00 87 09/07/16 00:00 97.9 94 12 100/75 96 Nasal Cannula 2.00 09/07/16 00:00 Nasal Cannula 2.00 97 09/06/16 23:00 100 26 92/78 95 Nasal Cannula 2.00 09/06/16 22:00 103 14 119/93 99 Nasal Cannula 2.00 09/06/16 21:00 108 19 131/90 98 Nasal Cannula 2.00 09/06/16 20:00 105 12 121/90 96 Nasal Cannula 2.00 09/06/16 19:49 98 Nasal Cannula 2.00 09/06/16 19:40 Nasal Cannula 2.00 97 09/06/16 19:00 113 09/06/16 19:00 97.7 112 13 126/87 97 Nasal Cannula 2.00 09/06/16 18:00 94 15 156/81 96 Nasal Cannula 2.00 09/06/16 17:00 99 14 193/99 97 Nasal Cannula 2.00 09/06/16 16:00 Nasal Cannula 2.00 100 09/06/16 16:00 104 16 116/92 96 Nasal Cannula 2.00 09/06/16 15:40 97 Nasal Cannula 2.00 09/06/16 15:00 104 17 120/86 98 Nasal Cannula 2.00 09/06/16 14:00 105 9 110/62 95 Nasal Cannula 2.00 09/06/16 13:00 103 20 131/90 100 Nasal Cannula 2.00 09/06/16 13:00 103 09/06/16 12:00 95 12 119/87 100 Nasal Cannula 2.00 09/06/16 12:00 97.6 Nasal Cannula 2.00 09/06/16 12:00 Nasal Cannula 2.00 99 I & O 09/07/16 07:00 Intake Total 5650 ml Output Total 6550 ml Balance -900 ml General Appearance: No Apparent Distress, WD/WN, Chronically ill, Obese HEENT: PERRL/EOMI, Pharynx Normal Neck: Full Range of Motion, Normal Inspection, Non Tender, Supple Respiratory: Chest Non Tender, No Accessory Muscle Use, No Respiratory Distress Cardiovascular: Regular Rate, Rhythm Capillary Refill: Less Than 3 Seconds Gastrointestinal: soft (umbilical hernia reducible, no significant tenderness on palpation no appreciable organomegaly) Extremity: Normal Range of Motion, Non Tender, No Calf Tenderness, No Pedal Edema Neurologic/Psychiatric: Alert, Oriented x3, Normal Mood/Affect Skin: Normal Color, Warm/Dry Lymphatic: No Adenopathy Results Lab Laboratory Tests 09/06/16 03:30 09/07/16 03:42 Assessment/Plan Assessment/Plan Abdominal pain with possible cholecystitis -surgery following Mediastinal lymphadenopathy -repeat CT scan 8wks after discharge SOB and right pleural effusion -Monitor nonischemic CHF with EF 10-15% - probably secondary to untreated ALEXUS -PT will need sleep testing as out patient Morbid obesity NIDDM 232 Pt will need to f/u with me within 1-2 wks for sleep study arrangement. Clinical Quality Measures DVT/VTE Risk/Contraindication: Risk Factor Score Per Nursin RFS Level Per Nursing on Admit: 2=Moderate IVANA SRIVASTAVA DO Sep 07, 2016 11:29
[2016-09-07] MEDS ORDERED: SPIR25TA3 PO (17:43)
[2016-09-07] MEDS ORDERED: POTA10TA10 PO (17:43)
[2016-09-07] MEDS ORDERED: CARV6.252 PO (17:43)
[2016-09-07] MEDS ORDERED: SACU1TAB PO (17:43)
[2016-09-07] MEDS ORDERED: FURO40TA4 PO (17:43)
--- NOTE | 2016-09-07 17:45 | Cardiology Progress Note ---
Cardiology SOAP Progress Note Subjective: improved significantly Objective: I&O/Vital Signs Vital Sign - Last 12Hours 09/07/16 09/07/16 09/07/16 09/07/16 06:00 06:06 06:06 07:00 Pulse 84 98 Resp 13 B/P (MAP) 89/65 Pulse Ox 92 99 99 O2 Delivery Nasal Cannula Nasal Cannula O2 Flow Rate 2.00 2.00 09/07/16 09/07/16 09/07/16 09/07/16 07:00 08:20 08:20 09:45 Temp 96.8 Pulse 105 100 100 Resp 10 13 10 B/P (MAP) 107/87 126/87 Pulse Ox 98 98 97 O2 Delivery Nasal Cannula Nasal Cannula Nasal Cannula Nasal Cannula O2 Flow Rate 2.00 2.00 2.00 2.00 09/07/16 09/07/16 09/07/16 09/07/16 10:09 11:00 12:00 12:30 Temp 96.9 Pulse 100 104 Resp 10 13 B/P (MAP) 141/91 119/102 Pulse Ox 94 96 95 O2 Delivery Room Air Room Air O2 Flow Rate 2.00 09/07/16 09/07/16 09/07/16 09/07/16 12:30 13:00 13:00 14:00 Pulse 97 98 93 Resp 21 14 B/P (MAP) 112/72 125/88 Pulse Ox 95 98 O2 Delivery Room Air Room Air Room Air 09/07/16 09/07/16 15:00 16:55 Temp 97.3 Pulse 101 99 Resp 13 16 B/P (MAP) 104/84 134/93 Pulse Ox 96 96 O2 Delivery Room Air Room Air Intake and Output 09/07/16 00:00 Intake Total 4450 ml Output Total 3750 ml Balance 700 ml Weight (Pounds): 299 Weight (Ounces): 0.1 Weight (Calculated Kilograms): [id number] Constitutional: No appears stated age, No AAO x 3, No apparent distress, No PERRL, No well-developed, No well-nourished, No other Respiratory: No accessory muscle use, No respiratory distress, No chest tender , No chest expansion is symmetric, No chest is bilaterally symmetric, No lungs clear to percussion, No lungs clear to auscultation, No crackles, No rhonchi, No rales, No stridor, No wheezing, No pleural rub, No other Cardiovascular: No regular rate-rhythm, No irregularly irregular, No extra beats, No parasternal heave is noted, No JVD, No edema, No bradycardia, No tachycardia, No point of maximal impulse, No cardiac thrills are palpable, No S1 and S2, No gallop/S3, No gallop/S4, No diastolic murmur, No systolic murmur, No friction rub, No click, No other Gastrointestional: No tender, No soft, No round, No distended, No pulsatile mass, No organomegaly, No guarding, No rebound, No tenderness, No hernia, No mass, No audible bowel sounds, No abnormal bowel sounds, No abdominal bruits, No spleenomegaly, No other Extremities: No normal range of motion, No non-tender, No normal inspection, No pedal edema, No calf tenderness, No normal capillary refill, No pelvis stable , No calf tenderness, No inflammation, No pedal edema, No slow capillary refill , No swelling, No other, No abrasion, No clubbing, No cyanosis, No ecchymosis, No laceration, No no lower extremity edema bilateral, No significant edema, No tenderness, No wound Neurologic/Psychiatric: No mutual fund sales agent II-XII nml as tested, No no motor/sensory deficits, No alert, No normal mood/affect, No oriented x 3, No abnormal cerebellar tests, No abnormal mutual fund sales agent II-XII, No abnormal gait, No aphasia, No EOM palsy, No facial droop, No motor weakness, No sensory deficit, No depressed affect, No disoriented x 3, No other, No grossly intact, No power is 5/5 both on sides Skin: No normal color, No warm/dry, No cyanosis, No cool, No diaphoresis, No damp, No ecchymosis, No jaundice, No mottled, No pallor, No rash, No tattoos/ piercings, No ulcerations, No rash on exposed areas, No ulcerations on exposed areas, No other Results/Procedures: Labs Laboratory Tests 09/06/16 20:23: Glucometer 217H 09/06/16 23:58: Glucometer 165H 09/07/16 03:42: White Blood Count 8.5, Red Blood Count 5.29, Hemoglobin 13.7, Hematocrit 43, Mean Corpuscular Volume 82, Mean Corpuscular Hemoglobin 26, Mean Corpuscular Hemoglobin Concent 32, Red Cell Distribution Width 14.7H, Platelet Count 165, Mean Platelet Volume 11.9H, Neutrophils (%) (Auto) 69, Lymphocytes (%) (Auto) 18 , Monocytes (%) (Auto) 10, Eosinophils (%) (Auto) 2, Basophils (%) (Auto) 1, Neutrophils # (Auto) 5.9, Lymphocytes # (Auto) 1.5, Monocytes # (Auto) 0.9, Eosinophils # (Auto) 0.2, Basophils # (Auto) 0.1, Sodium Level 138, Potassium Level 3.6, Chloride Level 100, Carbon Dioxide Level 28, Anion Gap 10, Blood Urea Nitrogen 17, Creatinine 1.12, Estimat Glomerular Filtration Rate > 60, BUN/ Creatinine Ratio 15, Glucose Level 113H, Calcium Level 8.6, Phosphorus Level 4.4 , Magnesium Level 1.8 09/07/16 04:08: Glucometer 117H Microbiology 09/03/16 MRSA Screen - Final, Complete MRSA not isolated A/P: Assessment/Dx: Admission Diagnosis Congestive heart failure, acute left ventricular systolic dysfunction Shortness of breath Hypertension Diabetes mellitus Plan: Assessment/Plan Congestive heart failure, ejection fraction 10-15 percent, acute left ventricular systolic dysfunction, unknown etiology, nonischemic cardiomyopathy, Lyme titers are negative, tularemia is borderline, currently on beta blockers and Entresto. also on Lasix and Aldactone. He can be discharged on 40 mg of Lasix and potassium supplementation of 20 mEq. LifeVest for primary prevention of sudden cardiac . Proteinuria, patient reports having chronic proteinuria, he had workup done at [facility] about 20 years ago for possible lupus or Lyme disease and expressed that the workup was negative. No further workup done recently. Still having positive proteinuria. Sinus tachycardia, I will increase Coreg and evaluate his tolerance and response Abdominal pain, abdominal distention, thickened gallbladder robin and mildly dilated common bile duct, prominent liver, questionable cholecystitis, Dr. Sharp consulted. Hypertension, continue to monitor blood pressure Diabetes mellitus, followed and managed by primary care physician Obesity, BMI 43. Discussed weight loss. High risk for sleep apnea, consider sleep study as an outpatient. okay to discharge to follow-up with Dr. Arroyo/Radha one week. Thank you for your consultation. Please call me if you have any questions. Anika Topete MD, FACP, FACC, FSCAI, FHRS, CCDS Interventional Cardiology Cardiac Electrophysiology Vascular Medicine and Endovascular Interventions Melissa TOPETE MD Sep 07, 2016 5:45 pm
== END 2016-09-07 18:30 | disposition home or self-care (01) | DRG 444 ==
LOC: ER 17:33 → ICU 21:20
PROVIDERS: ADMIT Internal Medicine; ATTEND Internal Medicine
PROC: 4A023N7 Measurement of Cardiac Sampling and Pressure, Left Heart, Percutaneous Approach (ICD-10-PCS; principal; 2016-09-05)
PROC: B2111ZZ Fluoroscopy of Multiple Coronary Arteries using Low Osmolar Contrast (ICD-10-PCS; 2016-09-05)
PROC: B2151ZZ Fluoroscopy of Left Heart using Low Osmolar Contrast (ICD-10-PCS; 2016-09-05)
DX: K80.12 Calculus of gallbladder with acute and chronic cholecystitis without obstruction (principal); I50.21 Acute systolic (congestive) heart failure; I42.9 Cardiomyopathy, unspecified; Z68.41 Body mass index [BMI] 40.0-44.9, adult; J90 Pleural effusion, not elsewhere classified; E11.65 Type 2 diabetes mellitus with hyperglycemia; G47.33 Obstructive sleep apnea (adult) (pediatric); E66.01 Morbid (severe) obesity due to excess calories; M25.579 Pain in unspecified ankle and joints of unspecified foot; E78.00 Pure hypercholesterolemia, unspecified; I11.0 Hypertensive heart disease with heart failure; K21.9 Gastro-esophageal reflux disease without esophagitis; Z91.14 Patient's other noncompliance with medication regimen; Z91.19 Patient's noncompliance with other medical treatment and regimen; K42.9 Umbilical hernia without obstruction or gangrene; Z87.891 Personal history of nicotine dependence; I25.10 Atherosclerotic heart disease of native coronary artery without angina pectoris; R59.0 Localized enlarged lymph nodes
CPT/HCPCS: 36415; 71010; 71275; 74177; 76705; 80048; 80053; 80061; 80306; 81000; 82962; 83036; 83690; 83735; 83880; 84100; 84443; 84484; 85025; 85027; 85379; 85610; 85730; 86618; 86666; 86668; 86757; 87081; 93005; 94640; 94761; 96361; 96374

== ENCOUNTER 2016-09-22 11:41 | Outpatient (RCR) | payer OTHER ==
[~2016-09-22 11:41] MED LIST: CARV6.252 PO; CHRO200T2 PO; CHRO400T10 PO; FURO40TA4 PO; GLYB2.5T4 PO; LOSA100T28 PO; OMEP20TA33 PO; OMEP40CA36 PO; POTA10TA10 PO; SACU1TAB PO; SPIR25TA3 PO
--- NOTE | 2016-09-22 14:26 | Diagnostic Imaging Report ---
INDICATION: Pneumonia. COMPARISON: 09/07/2016. FINDINGS: Two views of the chest are obtained. Heart size is upper limits of normal but unchanged. There is no central venous congestion or evidence of failure. There is no pneumothorax or pleural fluid demonstrated. There is some minimal persistent increased density adjacent to the cardiac apex in the medial left lower chest, slightly improved from the prior study. Some of this density may be related to overlapping vascular structures. No new focal abnormality is seen. The right lung remains clear. There are degenerative changes in the spine. IMPRESSION: There is some persistent subtle increased density in the medial left lung base adjacent to the cardiac apex, although it appears improved from the prior study. This may be secondary to some residual infiltrate and/or some overlapping vascular structures. An additional short-term followup study may be of benefit. No new abnormality is seen. Dictated by: Dictated on workstation # [id number]
== END 2016-11-26 | disposition home or self-care (01) ==
LOC: RAD 11:41 → EDSTATUS 11:41
PROVIDERS: ATTEND Nurse Practitioner Family
DX: J18.9 Pneumonia, unspecified organism (principal); R06.02 Shortness of breath
CPT/HCPCS: 71020

== ENCOUNTER 2016-10-28 19:15 | Outpatient (CLI) | payer SELFPAY | END 2016-10-29 06:30 | disposition home or self-care (01) | LOC: SLEEP 19:15 | PROVIDERS: ATTEND Nurse Practitioner Family | DX: G47.33 Obstructive sleep apnea (adult) (pediatric) (principal) | CPT/HCPCS: 95811 ==

== ENCOUNTER → 2016-11-14 | Outpatient (CLI) | payer OTHER ==
[~2016-11-14] MED LIST changes: +CATHETER FLUSH 10 ML SYR IV PRN; +HEParin (CENTRAL IV FLUSH) 500 UNIT/5 ML SYR ONE
--- NOTE | 2016-11-17 08:54 | Diagnostic Imaging Report ---
DATE OF SERVICE: 11/14/2016 MUGA SCAN REPORT SUMMARY: The patient was injected with 29.8 mCi of technetium-99 Myoview tagged RBCs, images were acquired and reviewed in 4 views. Review of the images showed dilated left ventricle with diffuse left ventricular hypokinesia, calculated ejection fraction of 25%. CONCLUSION: Diffuse left ventricular hypokinesia with a calculated ejection fraction of 25%. Job ID: [id number] DocumentID: [id number] Dictated Date: 11/16/2016 15:16:57 Curve Saw Operator Date: 11/16/2016 19:13:13 Dictated By: WILLIAM CHACON MD
== END ==
LOC: CARD 13:44
PROVIDERS: ATTEND Physician Assistant
DX: I25.10 Atherosclerotic heart disease of native coronary artery without angina pectoris (principal); I11.0 Hypertensive heart disease with heart failure; I42.0 Dilated cardiomyopathy
CPT/HCPCS: 78472

== ENCOUNTER → 2016-12-29 | Outpatient (CLI) | payer OTHER ==
[~2016-12-29] MED LIST changes: -CATHETER FLUSH 10 ML SYR IV PRN; -HEParin (CENTRAL IV FLUSH) 500 UNIT/5 ML SYR ONE
== END ==
LOC: CARD 14:04
PROVIDERS: ATTEND Internal Medicine Cardiovascular Disease
DX: I25.10 Atherosclerotic heart disease of native coronary artery without angina pectoris (principal); I11.0 Hypertensive heart disease with heart failure; I50.9 Heart failure, unspecified; G47.10 Hypersomnia, unspecified; R06.02 Shortness of breath
CPT/HCPCS: 93306

== ENCOUNTER 2017-01-18 06:38 | Day surgery (SDC) | payer OTHER ==
[2017-01-18] VITALS (13 sets, daily range): BP systolic 99–139; BP diastolic 55–100
[~2017-01-18] VITALS: Ht 177.8 cm; Wt 135.6 kg
[2017-01-18] MEDS ORDERED: HEParin 1000 UNIT/ML (10ML VIAL) FOR BOLUS ONE (06:43)
[2017-01-18] MEDS ORDERED: NS IV 1000 ML 2,000 ML ONE (06:44)
[2017-01-18] MEDS ORDERED: BACITRACIN INJECTION 50,000 UNIT, SODIUM CHLORIDE 0.9% IRRIGATIO 500 ML IR ONE ×2 (07:00)
[2017-01-18] MEDS ORDERED: ceFAZolin 1,000 MG (ANCEF) VIAL IV ONE (07:00)
[2017-01-18 07:15] LABS: MEAN PLATELET VOLUME 12.1 FL (7.4-10.4); RED BLOOD COUNT 5.75 10^6/uL (4.35-5.85); WHITE BLOOD COUNT 6.5 10^3/uL (4.3-11.0)
[2017-01-18 07:20] LABS: BILIRUBIN,URINE NEGATIVE (NEGATIVE); KETONES,URINE NEGATIVE (NEGATIVE); LEUKOCYTE ESTERASE ,URINE NEGATIVE (NEGATIVE); NITRITE,URINE NEGATIVE (NEGATIVE); PH,URINE 5 (5-9); PROTEIN,URINE 2+ (NEGATIVE); UROBILINOGEN,URINE NORMAL (NORMAL)
[2017-01-18 07:22] LABS: INR 0.9 (0.8-1.4); PROTHROMBIN TIME PATIENT 12.6 SEC (12.2-14.7)
[2017-01-18] MEDS ORDERED: NS IV 1000 ML 1,000 ML IV SCH ×2 (07:30→10:29)
[2017-01-18 07:32] LABS: HYALINE CASTS, URINE 0-2 /LPF
[2017-01-18 07:33] LABS: ALBUMIN 4.4 GM/DL (3.2-4.5); BILIRUBIN,TOTAL 0.6 MG/DL (0.1-1.0); CALCIUM 9.7 MG/DL (8.5-10.1); CREATININE SERUM 1.28 MG/DL (0.60-1.30); POTASSIUM 4.2 MMOL/L (3.6-5.0); TOTAL PROTEIN 8.6 GM/DL (6.4-8.2)
--- NOTE | 2017-01-18 07:37 | Diagnostic Imaging Report ---
INDICATION: Congestive failure. Comparison with 09/22/2016. FINDINGS: The lungs are well-aerated and clear. The heart is not enlarged. No pulmonary edema. No pneumothorax or pleural effusions. IMPRESSION: Normal portable chest. Dictated by: Dictated on workstation # [id number]
[2017-01-18] MEDS ORDERED: NS (IVPB) 50 ML ONE (07:47)
[2017-01-18] MEDS ORDERED: ceFAZolin 1,000 MG (ANCEF) VIAL ONE (07:47)
[2017-01-18] MEDS ORDERED: INFLUENZA TRIvalent 2017-2018 0.5 ML/45 MCG SYR IM ONE (08:15)
[2017-01-18] MEDS ORDERED: SACU1TAB7 PO (08:51)
[2017-01-18] MEDS ORDERED: GLYB2.5T4 PO (08:57)
[2017-01-18] MEDS ORDERED: METF-478 PO (08:57)
[2017-01-18] MEDS ORDERED: CARV6.25 PO (08:57)
[2017-01-18] MEDS ORDERED: FURO40TA4 PO (08:57)
[2017-01-18] MEDS ORDERED: POTA10CA43 PO (08:57)
[2017-01-18] MEDS ORDERED: SPIR25TA PO (08:57)
[2017-01-18] MEDS ORDERED: MIDAZOLAM 2 MG/2 ML (VERSED) VIAL ONE ×2 (09:04→09:36)
[2017-01-18] MEDS ORDERED: fentaNYL INJECTION 100 MCG/2 ML AMP ONE (09:04)
--- NOTE | 2017-01-18 09:11 | Cardiac Procedure Note-CS/ASA ---
Pre-Procedure Note Pre-Op Procedure Note H&P Reviewed The H&P was reviewed, patient examined and no changes noted. Date H&P Reviewed: Jan 18, 2017 Time H&P Reviewed: 09:10 Conscious Sedation Pre-Proced Time Reviewed: 09:10 ASA Class: 3 Airway Mallampati Classification: (ione appropriate class) I. II. III, IV Lungs Heart ASA score ASA 1: a normal healthy patient ASA 2: a patient with a mild systemic disease (mid diabetes, controlled hypertension, obesity x ASA 3: a patient with a severe systemic disease that limits activity (angina , COPD, prior Myocardial infarction) ASA 4: a patient with an incapacitating disease that is a constant threat to life (CHF, renal failure) ASA 5: a moribund patient not expected to survive 24 hrs. (ruptured aneurysm) ASA 6: a declared brain patient whose organs are being harvested. For emergent operations, add the letter E after the classification Grade 3 Sedation Plan: Analgesia, Amnesia, Plan communicated to team members, Discussed options with patient/fam, Discussed risks with patient/fam Note The patient is an appropriate candidate to undergo the planned procedure, sedation, and anesthesia. The patient immediately re-assessed prior to indication. WILLIAM CHACON MD Jan 18, 2017 09:10
[2017-01-18] MEDS ORDERED: diphenhydrAMINE 50 MG/ML INJ (BENADRYL) ONE (09:20)
[2017-01-18] MEDS ORDERED: proPOfol 200 MG/20 ML (DIPRIVAN) VIAL IV ONE (09:54)
[2017-01-18] MEDS ORDERED: NEO/POLY/BAC (NEOSPORIN) OINT 15 GM TUBE ONE (10:26)
[2017-01-18] MEDS ORDERED: PATIENT MAY USE OWN MEDS, ALL PO SCH (10:30)
--- NOTE | 2017-01-18 10:42 | Cardiology Post Procedure Note ---
Post-Procedure Note Physician (s)/Farm Equipment Mechanic Apprentice (s) Physician WILLIAM CHACON MD Pre-Procedure Diagnosis Pre-Procedure Diagnosis: congestive heart failure Post-Procedure Note Procedure Start Date: Jan 18, 2017 Name of Procedure: Single-chamber ICD implant DFT testing Findings/Procedure Note Successful implantation of single-chamber ICD testing using Biotronik Device Iperia 7 VR-T DX [id number] RV lead Plexa pro MRI [id number] Really Successful DFT testing with 20 J For full report please see separate report Anesthesia Type: Conscious Sedation Estimated blood loss (mL): 10 ml Contrast Amount: 0 ml Post-Procedure Diagnosis Post-operative diagnosis: Congestive heart failure, chronic compensated left ventricular systolic dysfunction, nonischemic cardiomyopathy, ejection fraction 20-25 percent Obstructive sleep apnea Obesity Hypertension WILLIAM CHACON MD Jan 18, 2017 10:42 am
--- NOTE | 2017-01-18 11:01 | Progress Note-Standard ---
Standard Progress Note Progress Notes/Assess & Plan Time Seen by Provider: 10:15 Final Diagnosis Consulted for sedation during AICD testing. Chart reviewed and history obtained. Propofol 40 mg given IV. Pt gertrudis kwok, VSS report to petroleum laboratory technician RN care assumed. IZZY DUGAN CRNA Jan 18, 2017 11:01
[2017-01-18] MEDS: ceFAZolin INJECTION 1,000 MG in NS (IVPB) 50 ML IV SCH ×2 (13:38→21:46)
[2017-01-18] MEDS: POTASSIUM CHLORIDE 10 MEQ PO SCH (16:14)
[2017-01-18] MEDS: glyBURIDE 2.5 MG (MICRONASE) TAB PO SCH (16:15)
[2017-01-18] MEDS: OMEPRAZOLE 20 MG (PriLOSEC) CAP PO SCH (16:15)
[2017-01-18] MEDS ORDERED: ACETAMINOPHEN 500 MG TAB (TYLENOL) PO PRN (17:15)
--- NOTE | 2017-01-18 17:28 | OPERATIVE REPORT ---
DATE OF SERVICE: 01/18/2017 SINGLE-CHAMBER ICD IMPLANTATION REPORT BRIEF HISTORY: The patient is a 51-year-old gentleman admitted for single-chamber ICD implantation as a primary prevention due to the fact that he has severe congestive heart failure, nonischemic cardiomyopathy with ejection fraction 20 to 25%, chronic compensated left ventricular systolic dysfunction. PROCEDURE NOTE: After explaining the procedure to the patient, all pros and cons were explained. The patient was placed in the cardiac catheterization laboratory. Chest was prepped. Left subclavian vein was accessed using Cook needle. Wire was introduced. Then, an RV lead Biotronik device with serial #[id number] was advanced to the right ventricular apex. Good sensing and capture activity, I was able to sense the atrial P wave with additional atrial sensor. Then, the skin pocket was made and irrigated with antibiotic solution. I placed a single-chamber ICD device Olympia 7VR-TDX Biotronik with serial #[id number]. Interrogation showed good sensing and capture activity. It was placed in the pocket and pocket was sutured with no complication. In conclusion, successful single-chamber ICD implantation with no complication. DFT testing. The patient was sedated with the assistance of anesthesia and then was paced and received a shock ventricular fibrillation. Good sensing and capture activity. DFT was success when terminating ventricular fibrillation with 20 joules. In conclusion, successful DFT testing with response to 20 joules. FINAL DIAGNOSES: 1. Congestive heart failure, chronic compensated left ventricular systolic dysfunction, nonischemic cardiomyopathy. 2. Obstructive sleep apnea. 3. Obesity. 4. Hypertension. Job ID: [id number] DocumentID: [id number] Dictated Date: 01/18/2017 10:36:31 Associate Product Manager Date: 01/18/2017 17:27:38 Dictated By: WILLIAM CHACON MD
--- NOTE | 2017-01-18 18:52 | Diagnostic Imaging Report ---
EXAMINATION: Portable upright radiograph of the chest. INDICATION: ICD placement. FINDINGS: There is a pacemaker placed with one cardiac lead appearing to be present. The heart size is slightly prominent. No definite focal infiltrates. There is, however, incomplete inspiration, probably an expiratory film. No effusion or pneumothorax. IMPRESSION: Poor inspiration limits evaluation. Pacemaker placement with no evidence of pneumothorax. Dictated by: Dictated on workstation # [id number]
[2017-01-18] MEDS: SACUBITRIL PO SCH (21:48)
[2017-01-18] MEDS: VALSARTAN PO SCH (21:48)
[2017-01-18] MEDS: CARVEDILOL 6.25 MG (COREG) TAB PO SCH (21:48)
[2017-01-19] VITALS: BP 110/78
[2017-01-19 04:00] VITALS: BP 114/75
[2017-01-19 05:15] LABS: BASOPHILS % (AUTO) 0 % (0-10); EOSINOPHILS # (AUTO) 0.2 10^3/uL (0.0-0.3); EOSINOPHILS % (AUTO) 2 % (0-10); LYMPHOCYTES # (AUTO) 1.1 X 10^3 (1.0-4.0); LYMPHOCYTES % (AUTO) 13 % (12-44); MEAN CORPUSCULAR HEMOGLOBIN 29 PG (25-34); MEAN CORPUSCULAR HGB CONC 35 G/DL (32-36); MEAN CORPUSCULAR VOLUME 83 FL (80-99); MEAN PLATELET VOLUME 12.2 FL (7.4-10.4); MONOCYTES # (AUTO) 0.8 X 10^3 (0.0-1.0); MONOCYTES % (AUTO) 10 % (0-12); NEUTROPHILS # (AUTO) 6.3 X 10^3 (1.8-7.8); NEUTROPHILS % (AUTO) 76 % (42-75); PLATELET COUNT 91 10^3/uL (130-400); RED BLOOD COUNT 5.34 10^6/uL (4.35-5.85); RED CELL DISTRIBUTION WIDTH 13.9 % (10.0-14.5); WHITE BLOOD COUNT 8.3 10^3/uL (4.3-11.0)
[2017-01-19 05:33] LABS: ANION GAP 10 MMOL/L (5-14); BLOOD UREA NITROGEN 14 MG/DL (7-18); BUN/CREATININE RATIO 15; CALCIUM 8.8 MG/DL (8.5-10.1); CARBON DIOXIDE 23 MMOL/L (21-32); CHLORIDE 101 MMOL/L (98-107); CREATININE SERUM 0.91 MG/DL (0.60-1.30); GFR ESTIMATED > 60; GLUCOSE 226 MG/DL (70-105); POTASSIUM 4.5 MMOL/L (3.6-5.0); SODIUM 134 MMOL/L (135-145)
[2017-01-19] MEDS: ceFAZolin INJECTION 1,000 MG in NS (IVPB) 50 ML IV SCH (06:49)
[2017-01-19] MEDS: glyBURIDE 2.5 MG (MICRONASE) TAB PO SCH (06:50)
[2017-01-19] MEDS: POTASSIUM CHLORIDE 10 MEQ PO SCH (06:51)
[2017-01-19] MEDS: OMEPRAZOLE 20 MG (PriLOSEC) CAP PO SCH (06:52)
[2017-01-19 09:00] VITALS: BP 108/70
[2017-01-19] MEDS ORDERED: SPIRONOLACTONE 25 MG (ALDACTONE) TAB PO SCH (09:00)
[2017-01-19] MEDS ORDERED: FUROSEMIDE 40 MG (LASIX) TAB PO SCH (09:00)
--- NOTE | 2017-01-19 09:05 | Cardiology Progress Note ---
Subjective Date Seen by Provider: Jan 19, 2017 Time Seen by Provider: 09:03 Subjective/Events-last exam Patient is in bed, feeling better, wound is healing well, asking to go home Review of Systems General: No Chills, No Night Sweats, No Fatigue, No Malaise, No Appetite, No Other HEENT: No Head Aches, No Visual Changes, No Eye Pain, No Ear Pain, No Dysphasia , No Sinus Congestion, No Post Nasal Drip, No Sore Throat, No Other Pulmonary: No Dyspnea, No Cough, No Pleuritic Chest Pain, No Other Objective-Cardiology Exam Last Set of Vital Signs Vital Signs 01/19/17 01/19/17 04:00 07:00 Temp 98.0 Pulse 96 Resp 14 B/P (MAP) 114/75 Pulse Ox 97 O2 Delivery Room Air Capillary Refill : I&O Intake and Output 01/20/17 00:00 Intake Total 950 ml Output Total 1200 ml Balance -250 ml Intake Oral 950 ml Output Urine Total 1200 ml # Voids 1 # Bowel Movements 1 General: Alert, Oriented X3, Cooperative HEENT: Atraumatic, PERRLA Neck: Supple, No JVD, No Thyromegaly Lungs: Clear to Auscultation, Normal Air Movement Heart: Regular Rate, Normal S1, Normal S2, No Murmurs Abdomen: Normal Bowel Sounds, Soft, No Tenderness, No Hepatosplenomegaly, No Masses Extremities: No Clubbing, No Cyanosis, No Edema, Normal Pulses, No Tenderness/ Swelling Skin: No Rashes, No Breakdown, No Significant Lesion Neuro: Normal Gait, Normal Speech, Strength at 5/5 X4 Ext, Normal Tone, Sensation Intact Psych/Mental Status: Mental Status NL, Mood NL Results Lab Laboratory Tests 01/19/17 05:05 A/P-Cardiology Admission Diagnosis Congestive heart failure, nonischemic cardiomyopathy, chronic compensated left ventricular systolic dysfunction Hypertension Hyperlipidemia Diabetes mellitus Assessment/Plan Congestive heart failure, chronic compensated left ventricular systolic dysfunction, nonischemic cardiomyopathy, had ICD implanted single-chamber for primary prevention, good sensing and capture activity this morning, chest x-ray showed no complication. Wound is healing well. Planning to discharge home. Elevated liver enzymes, it could be passive congestion, I will evaluate hepatitis profile then discharge Hyperlipidemia, cannot initiate statin due to elevated liver enzymes Obesity, BMI 42, we discussed weight loss and diet control Diabetes mellitus, educated in length on diabetic control Hypertension, controlled, continue current medications. WILLIAM CHACON MD Jan 19, 2017 09:05
[2017-01-19] MEDS ORDERED: CEFU500T63 PO (09:06)
[2017-01-19] MEDS ORDERED: CEFD300C3 PO (09:13)
[2017-01-19] MEDS ORDERED: CEFDINIR 300 MG (OMNICEF) CAP PO NR (09:15)
[2017-01-19] MEDS ORDERED: FUROSEMIDE 40 MG/4 ML INJ (LASIX) IVP NR (09:15)
[2017-01-19] MEDS: VALSARTAN PO SCH (09:30)
[2017-01-19] MEDS: CARVEDILOL 6.25 MG (COREG) TAB PO SCH (09:30)
[2017-01-19] MEDS: SACUBITRIL PO SCH (09:30)
[2017-01-19 09:51] VITALS: BP 108/70
[2017-01-19] MEDS ORDERED: CEFDINIR 300 MG (OMNICEF) CAP PO SCH (10:00)
== END 2017-01-19 09:51 | disposition home or self-care (01) ==
LOC: CATH 06:38 → ICU 10:49 → CATH 01-19 09:51
PROVIDERS: ATTEND Internal Medicine Cardiovascular Disease
DX: I11.0 Hypertensive heart disease with heart failure (principal); I50.22 Chronic systolic (congestive) heart failure; I42.0 Dilated cardiomyopathy; I25.10 Atherosclerotic heart disease of native coronary artery without angina pectoris; E11.9 Type 2 diabetes mellitus without complications; G47.33 Obstructive sleep apnea (adult) (pediatric); E66.9 Obesity, unspecified; Z68.41 Body mass index [BMI] 40.0-44.9, adult; Z79.84 Long term (current) use of oral hypoglycemic drugs; Z79.899 Other long term (current) drug therapy
CPT/HCPCS: 33212; 36415; 71010; 80048; 80053; 80061; 80074; 81000; 85025; 85027; 85610; 85730; 87081; 93005; 93641

== ENCOUNTER → 2017-05-04 | Outpatient (CLI) | payer SELFPAY ==
[~2017-05-04] MED LIST changes: +CARV6.25 PO; +CEFD300C3 PO; +CEFU500T63 PO; +METF-478 PO; +POTA10CA43 PO; +SACU1TAB7 PO; +SPIR25TA PO
== END ==
LOC: CARD 08:58
PROVIDERS: ATTEND Internal Medicine Cardiovascular Disease
DX: I25.10 Atherosclerotic heart disease of native coronary artery without angina pectoris (principal); I50.1 Left ventricular failure, unspecified; I11.0 Hypertensive heart disease with heart failure; G47.33 Obstructive sleep apnea (adult) (pediatric); E66.9 Obesity, unspecified; R06.02 Shortness of breath
CPT/HCPCS: 93306

== ENCOUNTER 2018-01-04 12:12 | Emergency (ER) | payer SELFPAY ==
[~2018-01-04] VITALS: Ht 177.8 cm; Wt 127.0 kg
[~2018-01-04 12:12] MED LIST changes: -LOSA100T28 PO; +LOSA100T8 PO; -SPIR25TA3 PO; +SPIR25TA5 PO
[2018-01-04 12:30] LABS: BASOPHILS % (AUTO) 0 % (0-10); EOSINOPHILS # (AUTO) 0.1 10^3/uL (0.0-0.3); EOSINOPHILS % (AUTO) 1 % (0-10); HEMATOCRIT 44 % (40-54); HEMOGLOBIN 14.9 G/DL (13.3-17.7); LYMPHOCYTES # (AUTO) 0.9 X 10^3 (1.0-4.0); LYMPHOCYTES % (AUTO) 9 % (12-44); MEAN CORPUSCULAR HEMOGLOBIN 26 PG (25-34); MEAN CORPUSCULAR HGB CONC 34 G/DL (32-36); MEAN CORPUSCULAR VOLUME 77 FL (80-99); MEAN PLATELET VOLUME 11.7 FL (7.4-10.4); MONOCYTES # (AUTO) 0.8 X 10^3 (0.0-1.0); MONOCYTES % (AUTO) 8 % (0-12); NEUTROPHILS # (AUTO) 8.1 X 10^3 (1.8-7.8); NEUTROPHILS % (AUTO) 82 % (42-75); PLATELET COUNT 142 10^3/uL (130-400); RED BLOOD COUNT 5.71 10^6/uL (4.35-5.85); RED CELL DISTRIBUTION WIDTH 14.9 % (10.0-14.5); WHITE BLOOD COUNT 9.9 10^3/uL (4.3-11.0)
[2018-01-04] MEDS ORDERED: ASPIRIN 81 MG CHEW (CHILDREN'S ASA) PO ONE (12:30)
[2018-01-04] MEDS ORDERED: FUROSEMIDE 40 MG/4 ML INJ (LASIX) ONE (12:31)
--- NOTE | 2018-01-04 12:31 | ED Cardiac General ---
History of Present Illness General Stated Complaint: CHF;SOB;PALE;WEAKNESS Source: patient Exam Limitations: no limitations History of Present Illness Date Seen by Provider: Jan 04, 2018 Time Seen by Provider: 12:27 Initial Comments To ER per private vehicle accompanied by his girlfriend with reports of shortness of breath, general weakness and mild chest pain rated at 1 out of 10 for the past 3 days. He follows with Dr. Arroyo and Dr. Nereyda Kim at [facility]. He has an implanted defibrillator. He had a cardiac catheterization on September 05 of last year showing mild nonobstructive coronary artery disease. Echocardiogram in April of this year showed severely reduced systolic function with ejection fraction at 30%. History of nonischemic cardiomyopathy. He is supposed to be on Lasix and Entresto but states that Dr. Kim stopped his Lasix 2-3 months ago and due to financial constraints he is unable to afford the Entresto. Girlfriend states that she has noticed a decline in her physical condition since stopping the Lasix. They state he is scheduled to start receiving Medicare benefits in January which would help with affording his medications. Timing/Duration: constant Severity: moderate Location: central Activities at Onset: none NTG SL SALES ASSOC: No ASA po SALES ASSOC: No Associated Systoms: Chest Pain; No Nausea/Vomiting; Shortness of Air, Weakness Allergies and Home Medications Allergies Coded Allergies: oxycodone (Verified Adverse Reaction, Unknown, NAUSEA, 09/03/16) Home Medications Carvedilol 6.25 Mg Tablet, 6.25 MG PO BID, (Reported) Cefdinir 300 Mg Capsule, 300 MG PO BID Prescribed by: WILLIAM ARROYO on 01/19/17 0913 Furosemide 40 Mg Tablet, 40 MG PO DAILY, (Reported) Furosemide 20 Mg Tablet, 20 MG PO DAILY Prescribed by: ARNULFO TEAGUE on 01/04/18 131 Glyburide 2.5 Mg Tablet, 1.25 MG PO BID, (Reported) TAKES 1/2 (2.5MG) TABLET Losartan Potassium 25 Mg Tablet, 25 MG PO DAILY Prescribed by: ARNULFO TEAGUE on 01/04/18 131 Magnesium Oxide 400 Mg Capsule, 400 MG PO BID Prescribed by: ANRULFO TEAGUE on 01/04/18 131 Metformin HCl 500 Mg Tab.er.24, 500 MG PO BID WITH MEALS, (Reported) Omeprazole Magnesium 20 Mg Tablet.dr, 20 MG PO DAILY, (Reported) Potassium Chloride 10 Meq Capsule.er, 10 MEQ PO BID, (Reported) Sacubitril/Valsartan 1 Each Tablet, 1 TAB PO BID, (Reported) Spironolactone 25 Mg Tablet, 25 MG PO DAILY, (Reported) Patient Home Medication List Home Medication List Reviewed: Yes Review of Systems Review of Systems Constitutional: see HPI; No chills, No fever EENTM: No Symptoms Reported Respiratory: See HPI; Denies Cough; Shortness of Air Cardiovascular: See HPI, Chest Pain Gastrointestinal: See HPI Genitourinary: No Symptoms Reported Musculoskeletal: no symptoms reported Skin: no symptoms reported Past Ehaouln-Qdqjfs-Jgfqdb Hx Patient Social History Drug of Choice: Marijuana Type Used: Cigarettes Former Smoker, Quit: Jan 19, 1992 Recent Hopitalizations: No Seasonal Allergies Seasonal Allergies: Yes Past Medical History Surgeries: Yes (Left shoulder,back, Left ankle X4, Left knee) Orthopedic Respiratory: Yes Sleep Apnea Currently Using CPAP: Yes Cardiac: Yes High Cholesterol, Hypertension Neurological: Yes Sexually Transmitted Disease: No HIV/AIDS: No Genitourinary: No Gastrointestinal: Yes Gastroesophageal Reflux Musculoskeletal: Yes Arthritis, Back Injury, Fractures Endocrine: Yes Diabetes, Non-Insulin dep HEENT: No Loss of Vision: Denies Hearing Impairment: Denies Cancer: No Psychosocial: No Integumentary: No Blood Disorders: No Adverse Reaction/Blood Tranf: No Family Medical History Arthritis 19 FATHER 19 MOTHER Colon cancer 19 FATHER Headache disorder 19 MOTHER Neoplasm 19 FATHER (LUNG CANCER) 19 MOTHER (PANCREATIC CANCER) Thyroid disease 19 MOTHER No Pertinent Family Hx Physical Exam Vital Signs Capillary Refill : Height, Weight, BMI Height: 5'10.00" Weight: 299lbs. 0.1oz. 135.612500qo; 42.9 BMI Method:Stated General Appearance: No Apparent Distress, WD/WN, Obese, Other (No distress, oxygen saturation 98% on room air, is not tachypneic. Due to obesity I am unable to properly evaluate any jugular venous distention. Is alert and oriented. He is hypertensive at 150/100, heart rate sinus in the 70s without ST segment changes on EKG) Neck: Full Range of Motion, Normal Inspection Respiratory: Normal Breath Sounds, No Accessory Muscle Use, No Respiratory Distress Cardiovascular: Regular Rate, Rhythm, Normal Peripheral Pulses Gastrointestinal: Normal Bowel Sounds, Non Tender, Soft Extremity: Other (trace pitting edema bilateral lower extremities. Due to his complaints of dyspnea, presence of hypertension and history of CHF I did order 1 dose of Lasix IV.) Neurologic/Psychiatric: Alert, Oriented x3 Skin: Normal Color, Warm/Dry Progress/Results/Core Measures Results/Orders Lab Results Laboratory Tests Test 01/04/18 12:22 Range/Units White Blood Count 9.9 4.3-11.0 10^3/uL Red Blood Count 5.71 4.35-5.85 10^6/uL Hemoglobin 14.9 13.3-17.7 G/DL Hematocrit 44 40-54 % Mean Corpuscular Volume 77 L 80-99 FL Mean Corpuscular Hemoglobin 26 25-34 PG Mean Corpuscular Hemoglobin Concent 34 32-36 G/DL Red Cell Distribution Width 14.9 H 10.0-14.5 % Platelet Count 142 130-400 10^3/uL Mean Platelet Volume 11.7 H 7.4-10.4 FL Neutrophils (%) (Auto) 82 H 42-75 % Lymphocytes (%) (Auto) 9 L 12-44 % Monocytes (%) (Auto) 8 0-12 % Eosinophils (%) (Auto) 1 0-10 % Basophils (%) (Auto) 0 0-10 % Neutrophils # (Auto) 8.1 H 1.8-7.8 X 10^3 Lymphocytes # (Auto) 0.9 L 1.0-4.0 X 10^3 Monocytes # (Auto) 0.8 0.0-1.0 X 10^3 Eosinophils # (Auto) 0.1 0.0-0.3 10^3/uL Basophils # (Auto) 0.0 0.0-0.1 10^3/uL Prothrombin Time 13.3 12.2-14.7 SEC INR Comment 1.0 0.8-1.4 Activated Partial Thromboplast Time 29 24-35 SEC Sodium Level 128 L 135-145 MMOL/L Potassium Level 4.6 3.6-5.0 MMOL/L Chloride Level 96 L 98-107 MMOL/L Carbon Dioxide Level 20 L 21-32 MMOL/L Anion Gap 12 5-14 MMOL/L Blood Urea Nitrogen 13 7-18 MG/DL Creatinine 0.89 0.60-1.30 MG/DL Estimat Glomerular Filtration Rate > 60 BUN/Creatinine Ratio 15 Glucose Level 262 H 70-105 MG/DL Calcium Level 9.3 8.5-10.1 MG/DL Corrected Calcium 9.2 8.5-10.1 MG/DL Magnesium Level 1.7 L 1.8-2.4 MG/DL Total Bilirubin 0.9 0.1-1.0 MG/DL Aspartate Amino Transf (AST/SGOT) 50 H 5-34 U/L Alanine Aminotransferase (ALT/SGPT) 60 H 0-55 U/L Alkaline Phosphatase 62 40-136 U/L Myoglobin 55.2 10.0-92.0 NG/ML Troponin I < 0.30 <0.30 NG/ML B-Type Natriuretic Peptide 169.1 H <100.0 PG/ML Total Protein 7.7 6.4-8.2 GM/DL Albumin 4.1 3.2-4.5 GM/DL Lipase 20 8-78 U/L My Orders Orders - ARNULFO TEAGUE APRN Cbc With Automated Diff (01/04/18 12:24) Magnesium (01/04/18 12:24) Chest 1 View, Ap/Pa Only (01/04/18 12:24) Ekg Tracing (01/04/18 12:24) Cardiac Profile 1 (01/04/18 12:24) Comprehensive Metabolic Panel (01/04/18 12:24) Myoglobin Serum (01/04/18 12:24) Protime With Inr (01/04/18 12:24) Partial Thromboplastin Time (01/04/18 12:24) O2 (01/04/18 12:24) Monitor-Rhythm Ecg Trace Only (01/04/18 12:24) Lipid Panel (01/05/18 06:00) Aspirin Chewable Tablet (Baby Aspirin Ch (01/04/18 12:30) Saline Lock/Iv-Start (01/04/18 12:24) Lipase (01/04/18 12:24) BNP (01/04/18 12:24) Furosemide Injection (Lasix Injection) (01/04/18 12:45) Furosemide Injection (Lasix Injection) (01/04/18 12:31) Medications Given in ED Current Medications Medications Dose Ordered Sig/Guille Route Start Time Stop Time Status Last Admin Dose Admin Aspirin 324 mg ONCE ONCE PO 01/04/18 12:30 01/04/18 12:31 DC 01/04/18 12:35 324 MG Furosemide 40 mg ONCE ONCE IVP 01/04/18 12:45 01/04/18 12:46 DC 01/04/18 12:35 40 MG Diagnostic Imaging Diagonstic Imaging: Xray Plain Films/CT/US/NM/MRI: chest Comments NAME: NIKHLI SARAH JR [facility] REC#: [id number] PT STATUS: REG ER : 1965 PHYSICIAN: ARNULFO TEAGUE INTERVENTIONAL RADIOLOGY TECHNOLOGIST ADMIT DATE: 01/04/18/ER Draft Date of Exam:01/04/18 CHEST 1 VIEW, AP/PA ONLY INDICATION: Shortness of breath. Frontal chest obtained at 12:46 p.m. and compared with 01/18/2017. There is cardiomegaly with unchanged pacemaker device. There is increasing central vascular congestion with interstitial edema and patchy infiltrate in the right lung base. There is no pneumothorax or gross pleural fluid. IMPRESSION: Cardiomegaly with increasing central vascular congestion and interstitial edema. Mild patchy infiltrate in right lung base. 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 Arroyo. He would like to start Lasix 20 mg daily, losartan 25 mg daily, follow-up in the clinic with Dr. Arroyo on Monday. Chest x-ray shows vascular congestion with mild interstitial edema in the right lung base infiltrate. However this right lung base infiltrate may be a component of edema as the patient denies fevers chills or cough. I will place him on an antibiotic in case this does represent a true infiltrate. Impression Primary Impression: Congestive heart failure Qualified Codes: I50.23 - Acute on chronic systolic (congestive) heart failure Disposition: HOME, SELF-CARE Condition: Stable Departure-Patient Inst. Decision time for Depature: 13:09 Referrals: WILLIAM ARROYO MD, JULIE A MD (PCP/Family) Primary Care Physician Patient Instructions: CHF Add. Discharge Instructions: 1. Dr. Arroyo would like to see you in his clinic Monday. Call today or tomorrow to figure out what time. In the meantime, start Lasix 20 mg daily, start the magnesium orally and the new Losartan blood pressure medication. Scripts Cefdinir (Cefdinir) 300 Mg Capsule 300 MG PO BID, #14 CAP Prov: ARNULFO TEAGUE APRN 01/04/18 Furosemide (Lasix) 20 Mg Tablet 20 MG PO DAILY, #14 TAB Prov: ARNULFO TEAGUE APRN 01/04/18 Losartan Potassium (Losartan Potassium) 25 Mg Tablet 25 MG PO DAILY, #30 TAB Prov: ARNULFO TEAGUE APRN 01/04/18 Magnesium Oxide (Magnesium) 400 Mg Capsule 400 MG PO BID, #30 CAP Prov: ARNULFO TEAGUE APRN 01/04/18 Copy Copies To 1: WILLIAM ARROYO MD, PETER J APRN Jan 04, 2018 12:31
[2018-01-04 12:42] LABS: PROTHROMBIN TIME PATIENT 13.3 SEC (12.2-14.7)
[2018-01-04] MEDS ORDERED: FUROSEMIDE 40 MG/4 ML INJ (LASIX) IVP ONE (12:45)
[2018-01-04 12:50] LABS: ALANINE AMINOTRANSFERASE 60 U/L (0-55); ALBUMIN 4.1 GM/DL (3.2-4.5); ALKALINE PHOSPHATASE 62 U/L (40-136); BILIRUBIN,TOTAL 0.9 MG/DL (0.1-1.0); BUN/CREATININE RATIO 15; CALCIUM 9.3 MG/DL (8.5-10.1); CARBON DIOXIDE 20 MMOL/L (21-32); CHLORIDE 96 MMOL/L (98-107); CREATININE SERUM 0.89 MG/DL (0.60-1.30); GFR ESTIMATED > 60; GLUCOSE 262 MG/DL (70-105); LIPASE 20 U/L (8-78); MAGNESIUM 1.7 MG/DL (1.8-2.4); POTASSIUM 4.6 MMOL/L (3.6-5.0); SODIUM 128 MMOL/L (135-145); TOTAL PROTEIN 7.7 GM/DL (6.4-8.2)
[2018-01-04 12:59] LABS: MYOGLOBIN SERUM 55.2 NG/ML (10.0-92.0)
[2018-01-04] MEDS ORDERED: LOSA25TA6 PO (13:12)
[2018-01-04] MEDS ORDERED: MAGN400C PO (13:12)
[2018-01-04] MEDS ORDERED: FURO-125 PO (13:12)
--- NOTE | 2018-01-04 13:13 | Diagnostic Imaging Report ---
INDICATION: Shortness of breath. Frontal chest obtained at 12:46 p.m. and compared with 01/18/2017. There is cardiomegaly with unchanged pacemaker device. There is increasing central vascular congestion with interstitial edema and patchy infiltrate in the right lung base. There is no pneumothorax or gross pleural fluid. IMPRESSION: Cardiomegaly with increasing central vascular congestion and interstitial edema. Mild patchy infiltrate in right lung base. Dictated by: Dictated on workstation # [id number]
[2018-01-04] MEDS ORDERED: CEFD300C3 PO (13:16)
[2018-01-04 13:29] VITALS: BP 145/94
== END 2018-01-04 13:29 | disposition home or self-care (01) ==
LOC: EDUNIT# 12:12 → ER 12:13
DX: I11.0 Hypertensive heart disease with heart failure (principal); I50.20 Unspecified systolic (congestive) heart failure; I25.10 Atherosclerotic heart disease of native coronary artery without angina pectoris; G47.30 Sleep apnea, unspecified; E78.00 Pure hypercholesterolemia, unspecified; K21.9 Gastro-esophageal reflux disease without esophagitis; E11.9 Type 2 diabetes mellitus without complications; Z80.0 Family history of malignant neoplasm of digestive organs; Z80.1 Family history of malignant neoplasm of trachea, bronchus and lung; Z91.14 Patient's other noncompliance with medication regimen; Z87.891 Personal history of nicotine dependence; Z88.5 Allergy status to narcotic agent; Z79.84 Long term (current) use of oral hypoglycemic drugs; Z95.810 Presence of automatic (implantable) cardiac defibrillator
CPT/HCPCS: 36415; 71045; 80053; 83690; 83735; 83874; 83880; 84484; 85025; 85610; 85730; 93005; 93041

== ENCOUNTER 2018-03-06 18:59 | Emergency (ER) | payer MEDICARE ==
[~2018-03-06] VITALS: Ht 177.8 cm; Wt 127.0 kg
[~2018-03-06 18:59] MED LIST changes: +FURO-125 PO; +LOSA25TA6 PO; +MAGN400C PO
--- OUTSIDE RECORDS SUMMARY | 2018-03-06 19:06 | XMS REPORT ---
Author Author [facility] Address [address] [place] [address] Care Team Providers Care Facer Operator Name Role Phone CARLA ANNIE Unavailable PROBLEMS Type Condition ICD9-CM Code [id number] Code Onset Dates Condition Status SNOMED Code Problem Essential hypertension I10 Active 27594858 Problem Uncontrolled type 2 diabetes mellitus with hyperglycemia, without long -term current use of insulin E11.65 Active 257898145 Problem BMI 40.0-44.9, adult Z68.41 Active 945692371 Problem Diabetes education, encounter for Z71.89 Active 79281066 Problem Obstructive sleep apnea syndrome G47.33 Active 86847405 Problem Chronic systolic heart failure I50.22 Active 358655384 Problem Elevated liver enzymes R74.8 Active 355167106 Problem Elevated serum creatinine R79.89 Active 661977510 ALLERGIES No Information ENCOUNTERS Encounter Location Date Diagnosis [facility] [address] [id number] [id number] Dec, [facility] [address] [id number] [id number] Dec, [facility] [address] [id number][place] [id number] Dec, [facility] [address] [id number][place] [id number] Dec, Uncontrolled type 2 diabetes mellitus with hyperglycemia, without long-term current use of insulin E11.65 ; BMI 40.0-44.9, adult Z68.41 and Diabetes education, encounter for Z71.89 [facility] [address] [id number] [id number] Nov, [facility] [address] [id number][place] [id number] Aug, Elevated liver enzymes R74.8 and Elevated serum creatinine R79.[address] [id number][place] [id number] Jul, Uncontrolled type 2 diabetes mellitus with hyperglycemia, without long-term current use of insulin E11.65 ; Elevated liver enzymes R74.8 ; Elevated serum creatinine R79.89 and BMI 40.0-44.9, adult Z68.41 [facility] [id number] [place] [address] June, [facility] [id number] [place] [address] June, Uncontrolled type 2 diabetes mellitus with hyperglycemia, without long-term current use of insulin E11.65 ; Chronic systolic heart failure I50.22 ; Essential hypertension I10 ; Noncompliance with medication regimen Z91.14 and BMI 40.0-44.9, adult Z68.41 [facility] [id number] [place] [address] June, [facility] [address], [place] [address] Mar, [facility] [id number] [place] [address] Feb, [facility] [address], [place] [address] Dec, [facility] [address], [place] [address] Nov, [facility] [address], [place] [address] Sep, [facility] [address] [place] [id number] [place] [address] Sep, [facility] [address], [place] [address] Sep, [facility] [address] [id number] [place] [address] Sep, [facility] [address] [facility] [id number], [place] [address] Sep, [facility] [address] [id number] [address] Aug, [facility] [address] [facility] [id number], [place] [address] Aug, Uncontrolled type 2 diabetes mellitus with hyperglycemia, without long-term current use of insulin E11.65 ; Obstructive sleep apnea syndrome G47.33 ; Chronic systolic heart failure I50.22 and Essential hypertension I10 [facility] [address] [facility] [id number], [place] [address] Aug, IMMUNIZATIONS No Known Immunizations SOCIAL HISTORY Never Assessed REASON FOR VISIT Medication refill request PLAN OF CARE VITAL SIGNS MEDICATIONS Unknown Medications RESULTS No Results PROCEDURES No Known procedures INSTRUCTIONS MEDICATIONS ADMINISTERED No Known Medications MEDICAL (GENERAL) HISTORY Type Description Date Medical History diabetes mellitus Medical History congestive heart failure Medical History hypertension Medical History back pain Surgical History shoulder arthroscopy, left Surgical History orthopedic surgery, left ankle Surgical History lumbar fusion Surgical History left knee arthroscopy Surgical History defibrillator placement Hospitalization History CHF/gallbladder 08/2016 Hospitalization History Surgeries
--- OUTSIDE RECORDS SUMMARY | 2018-03-06 19:06 | XMS REPORT ---
Author Author CARLA ANNIE [facility] Address [address] [place] [address] Care Team Providers Care Tumbler Drier Operator Name Role Phone ANNIE AGUIRRE Unavailable PROBLEMS Type Condition ICD9-CM Code FSQ46-WG Code Onset Dates Condition Status SNOMED Code Problem Elevated liver enzymes R74.8 Active 642540787 Problem Elevated serum creatinine R79.89 Active 332662075 Problem Chronic systolic heart failure I50.22 Active 036729455 Problem Essential hypertension I10 Active 37443019 Problem Obstructive sleep apnea syndrome G47.33 Active 72784518 Problem Uncontrolled type 2 diabetes mellitus with hyperglycemia, without long -term current use of insulin E11.65 Active 338177701 ALLERGIES Substance Reaction Event Type Date Status OxyContin nausea Drug Allergy Jul, Active ENCOUNTERS Encounter Location Date Diagnosis [facility] [address] [facility] [id number] [id number] Aug, Elevated liver enzymes R74.8 and Elevated serum creatinine R79.[address] [id number] [place] [id number] Jul, Uncontrolled type 2 diabetes mellitus with hyperglycemia, without long-term current use of insulin E11.65 ; Elevated liver enzymes R74.8 ; Elevated serum creatinine R79.89 and BMI 40.0-44.9, adult Z68.41 [facility] [address] [facility] [id number] [address] June, [place] [id number] [facility] [id number], [place] [address] June, Uncontrolled type 2 diabetes mellitus with hyperglycemia, without long-term current use of insulin E11.65 ; Chronic systolic heart failure I50.22 ; Essential hypertension I10 ; Noncompliance with medication regimen Z91.14 and BMI 40.0-44.9, adult Z68.41 [facility] [address] [address] June, [facility] [address], [place] [address] Mar, [facility] [address] [address] Feb, [facility] [address] [address] Dec, [facility] [address] [address] Nov, [facility] [address], [place] [address] Sep, [facility] [address], [place] [address] Sep, [facility] [address], [place] [address] Sep, [facility] [address], [place] [address] Sep, [facility] [address], [place] [address] Sep, [facility] [address], [place] [address] Aug, [facility] [address] [place] [id number] [address] Aug, Uncontrolled type 2 diabetes mellitus with hyperglycemia, without long-term current use of insulin E11.65 ; Obstructive sleep apnea syndrome G47.33 ; Chronic systolic heart failure I50.22 and Essential hypertension I10 [facility] [address] [place] [id number] [address] Aug, IMMUNIZATIONS No Known Immunizations SOCIAL HISTORY Never Assessed REASON FOR VISIT Transitioning care Per Dr. Kim for DM and HTN. Lives in [place] and [place] is closer. Bashir lpn PLAN OF CARE Activity Details Follow Up 6 Weeks Reason:DM Pending Test PHOSPHORUS VITAL SIGNS Height 70 in 2017-08-22 Weight 296 lbs 2017-08-22 Temperature 97.8 degrees Fahrenheit 2017-08-22 Heart Rate 82 bpm 2017-08-22 Respiratory Rate 16 2017-08-22 BMI 42.47 kg/m2 2017-08-22 Blood pressure systolic 126 mmHg 2017-08-22 Blood pressure diastolic 78 mmHg 2017-08-22 MEDICATIONS Medication Instructions Dosage Frequency Start Date End Date Duration Status Test strips Test Strips subcutaneously 2 times a day ReliOn Prime Test strips 12h Aug, Active Furosemide 40 mg Orally Once a day 1 tablet 24h Active Carvedilol 6.25 MG Orally 2 times a day 1 tablet 12h Active Entresto 24-26 MG Orally Twice a day 1 tablet 12h Not-Taking Omeprazole 20 MG Orally Once a day 1 capsule 24h Active MetFORMIN HCl ER 500 mg Orally 2 times a day 1 tablet 12h 30 Active Potassium Chloride ER 10 MEQ Orally Once a day 2 tablet with food 24h Not-Taking Januvia 50 mg Orally Once a day 1 tablet 24h Jul, 30 days Active Multivitamin Adults - Active GlyBURIDE 5 mg Orally Once a day 2 tablets 24h Jul, 30 day(s) Active Spironolactone 25 MG Orally Once a day 1 tablet 24h Active RESULTS No Results PROCEDURES Procedure Date Ordered Result Body Site ASSAY OF PHOSPHORUS August 22, 2017 VENIPUNCT, ROUTINE* August 22, 2017 URINALYSIS, AUTO, W/O SCOPE August 22, 2017 URINE CULTURE/COLONY COUNT August 22, 2017 COMPLETE CBC W/AUTO DIFF WBC August 22, 2017 RENAL FUNCTION PANEL August 22, 2017 COMPREHEN METABOLIC PANEL August 22, 2017 ASSAY OF URINE CREATININE August 22, 2017 ASSAY OF PROTEIN, URINE August 22, 2017 ACUTE HEPATITIS PANEL August 22, 2017 URINALYSIS, AUTO W/SCOPE August 22, 2017 INSTRUCTIONS MEDICATIONS ADMINISTERED No Known Medications MEDICAL (GENERAL) HISTORY Type Description Date Medical History diabetes mellitus Medical History congestive heart failure Medical History hypertension Medical History back pain Surgical History shoulder arthroscopy, left Surgical History orthopedic surgery, left ankle Surgical History lumbar fusion Surgical History left knee arthroscopy Hospitalization History CHF/gallbladder 08/2016
--- OUTSIDE RECORDS SUMMARY | 2018-03-06 19:06 | XMS REPORT ---
Author Author ANNIE AGUIRRE [facility] Address [address] [place] [address] Care Team Providers Care Table Machine Operator Name Role Phone CARLA ANNIE Unavailable PROBLEMS Type Condition ICD9-CM Code DCE03-OW Code Onset Dates Condition Status SNOMED Code Problem Essential hypertension I10 Active 33998266 Problem Uncontrolled type 2 diabetes mellitus with hyperglycemia, without long -term current use of insulin E11.65 Active 985015153 Problem BMI 40.0-44.9, adult Z68.41 Active 435849654 Problem Diabetes education, encounter for Z71.89 Active 77763162 Problem Obstructive sleep apnea syndrome G47.33 Active 28838180 Problem Chronic systolic heart failure I50.22 Active 920162514 Problem Elevated liver enzymes R74.8 Active 851478279 Problem Elevated serum creatinine R79.89 Active 363422665 ALLERGIES No Information ENCOUNTERS Encounter Location Date Diagnosis [facility] [address] [id number] [id number] Dec, [facility] [address] [id number][place] [address] Dec, Uncontrolled type 2 diabetes mellitus with hyperglycemia, without long-term current use of insulin E11.65 ; BMI 40.0-44.9, adult Z68.41 and Diabetes education, encounter for Z71.89 [facility] [address] [id number], [place] [id number] Nov, [facility] [address] [id number][place] [address] Aug, Elevated liver enzymes R74.8 and Elevated serum creatinine R79.89 [facility] [address] [id number][place] [id number] Jul, Uncontrolled type 2 diabetes mellitus with hyperglycemia, without long-term current use of insulin E11.65 ; Elevated liver enzymes R74.8 ; Elevated serum creatinine R79.89 and BMI 40.0-44.9, adult Z68.41 [facility] [id number] [place] [address] 26645- 7875 June, [facility] [id number] [place] [address] 89420- 7184 June, Uncontrolled type 2 diabetes mellitus with hyperglycemia, without long-term current use of insulin E11.65 ; Chronic systolic heart failure I50.22 ; Essential hypertension I10 ; Noncompliance with medication regimen Z91.14 and BMI 40.0-44.9, adult Z68.41 [facility] [id number] [place] [address] 34757- 0173 June, [facility] [id number] [place] [address] 26391- 9257 Mar, [facility] [id number] [place] [address] 70588- 2532 Feb, [facility] [id number] [place] [address] 19161- 0971 Dec, [facility] [id number] [place] [address] 89910- 5354 Nov, [facility] [address] [address] 8266 Sep, [facility] [address] [place] [address] 95117- 1153 Sep, [facility] [address] [address]- 6186 Sep, [facility] [id number] [place] [address] 21877- 0657 Sep, [facility] [address] [address] 1395 Sep, [facility] [id number] [place] [address] 06397- 8056 Aug, [facility] [address] [facility] [place] [id number] [place] [address] Aug, Uncontrolled type 2 diabetes mellitus with hyperglycemia, without long-term current use of insulin E11.65 ; Obstructive sleep apnea syndrome G47.33 ; Chronic systolic heart failure I50.22 and Essential hypertension I10 [facility] [address] [facility] [place] [id number] [place] [address] Aug, IMMUNIZATIONS No Known Immunizations SOCIAL HISTORY Never Assessed REASON FOR VISIT add medication PLAN OF CARE VITAL SIGNS MEDICATIONS Medication Instructions Dosage Frequency Start Date End Date Duration Status Lisinopril 2.5 MG Orally Once a day 1 tablet 24h Dec, 90 days Active RESULTS No Results PROCEDURES No Known procedures [...]
--- OUTSIDE RECORDS SUMMARY | 2018-03-06 19:06 | XMS REPORT ---
Author Author ANNIE AGUIRRE [facility] Address [address] [place] [address] Care Team Providers Care E/M Engineer Name Role Phone ANNIE AGUIRRE Unavailable PROBLEMS Type Condition ICD9-CM Code GYX77-PL Code Onset Dates Condition Status SNOMED Code Problem Elevated liver enzymes R74.8 Active 800635588 Problem Elevated serum creatinine R79.89 Active 409543028 Problem Chronic systolic heart failure I50.22 Active 381366306 Problem Essential hypertension I10 Active 83861241 Problem Obstructive sleep apnea syndrome G47.33 Active 70588655 Problem Uncontrolled type 2 diabetes mellitus with hyperglycemia, without long -term current use of insulin E11.65 Active 580341449 ALLERGIES No Information ENCOUNTERS Encounter Location Date Diagnosis [address] [id number] [place] [id number] Aug, Elevated liver enzymes R74.8 and Elevated serum creatinine R79.[address] [id number] [place] [address] Jul, Uncontrolled type 2 diabetes mellitus with hyperglycemia, without long-term current use of insulin E11.65 ; Elevated liver enzymes R74.8 ; Elevated serum creatinine R79.89 and BMI 40.0-44.9, adult Z68.41 [address] [facility] [id number] [address] June, [id number] [address] June, Uncontrolled type 2 diabetes mellitus with hyperglycemia, without long-term current use of insulin E11.65 ; Chronic systolic heart failure I50.22 ; Essential hypertension I10 ; Noncompliance with medication regimen Z91.14 and BMI 40.0-44.9, adult Z68.41 [id number] [address] June, [facility] [address]00565100[place] [address] 4003 Mar, [facility] [id number] [address] Feb, [facility] [address]100[place] [address] 1809 Dec, [facility] [address] [address] 5407 Nov, [facility] [address] [place] [address] 04454- 7046 Sep, [facility] [id number] [address]- 5753 Sep, [facility] [id number] [place] [address] 23847- 3912 Sep, [facility] [address]100[place] [address]- 8959 Sep, [facility] [address]100[place] [address]- 7128 Sep, [facility] [address] [address]- 2720 Aug, [facility] [address] [address] 6190 Aug, Uncontrolled type 2 diabetes mellitus with hyperglycemia, without long-term current use of insulin E11.65 ; Obstructive sleep apnea syndrome G47.33 ; Chronic systolic heart failure I50.22 and Essential hypertension I10 [facility] [address] [address] 8901 Aug, IMMUNIZATIONS No Known Immunizations SOCIAL HISTORY Never Assessed REASON FOR VISIT PLAN OF CARE VITAL SIGNS MEDICATIONS Unknown [...]
--- OUTSIDE RECORDS SUMMARY | 2018-03-06 19:06 | XMS REPORT ---
Author Author ANNIE AGUIRRE [facility] Address [address] [place] [address] Care Team Providers Care Logistics Assistant Name Role Phone ANNIE AGUIRRE Unavailable PROBLEMS Type Condition ICD9-CM Code OSQ78-JP Code Onset Dates Condition Status SNOMED Code Problem Essential hypertension I10 Active 66532206 Problem Uncontrolled type 2 diabetes mellitus with hyperglycemia, without long -term current use of insulin E11.65 Active 333677030 Problem BMI 40.0-44.9, adult Z68.41 Active 643787378 Problem Diabetes education, encounter for Z71.89 Active 81474713 Problem Obstructive sleep apnea syndrome G47.33 Active 69864917 Problem Chronic systolic heart failure I50.22 Active 786626686 Problem Elevated liver enzymes R74.8 Active 664477201 Problem Elevated serum creatinine R79.89 Active 748192355 ALLERGIES Substance Reaction Event Type Date Status OxyContin nausea Drug Allergy Dec, Active ENCOUNTERS Encounter Location Date Diagnosis [facility] [id number] [id number] Dec, Uncontrolled type 2 diabetes mellitus with hyperglycemia, without long-term current use of insulin E11.65 ; BMI 40.0-44.9, adult Z68.41 and Diabetes education, encounter for Z71.[address] [id number][place] [address] Nov, [facility] [id number][place] [address] Aug, Elevated liver enzymes R74.8 and Elevated serum creatinine R79.89 [facility] [id number][place] [address] Jul, Uncontrolled type 2 diabetes mellitus with hyperglycemia, without long-term current use of insulin E11.65 ; Elevated liver enzymes R74.8 ; Elevated serum creatinine R79.89 and BMI 40.0-44.9, adult Z68.41 [facility] [address]00565100[place] [address] June, [facility] [id number] [place] [address] 47752- 3565 June, Uncontrolled type 2 diabetes mellitus with hyperglycemia, without long-term current use of insulin E11.65 ; Chronic systolic heart failure I50.22 ; Essential hypertension I10 ; Noncompliance with medication regimen Z91.14 and BMI 40.0-44.9, adult Z68.41 [facility] [id number] [place] [address] 11687- 5531 June, [facility] [id number] [place] [address] 66928- 9375 Mar, [facility] [id number] [place] [address] 78757- 0922 Feb, [facility] [address]100[place] [address]- 2417 Dec, [facility] [address] [id number] [address]- 7977 Nov, [facility] [address]65100[place] [address]- 5263 Sep, [facility] [address]100[place] [address]- 0346 Sep, [facility] [address]100[place] [address]- 4100 Sep, [facility] [address] [address]- 4171 Sep, [facility] [address] [id number] [address]- 4106 Sep, [facility] [address] [address]- 8404 Aug, [facility] [address] [facility] [id number] [place] [address] Aug, Uncontrolled type 2 diabetes mellitus with hyperglycemia, without long-term current use of insulin E11.65 ; Obstructive sleep apnea syndrome G47.33 ; Chronic systolic heart failure I50.22 and Essential hypertension I10 [facility] [address] [facility] [id number] [place] [address]- 2943 Aug, IMMUNIZATIONS No Known Immunizations SOCIAL HISTORY Never Assessed REASON FOR VISIT diabetic check, was seen in ER Monday for pain around defibrillator Abram HERRERA , Dr. Arroyo changed meds yesterday, but unsure of which ones. PLAN OF CARE Activity Details Follow Up 6 Weeks Reason:DM Pending Test A1C (IN HOUSE) Pending Test MICROALBUMIN, URINE (IN HOUSE) Pending Test UA LONG DIP (IN HOUSE) Pending Test MICROALBUMIN/CREATININE RATIO, URINE VITAL SIGNS Height 70 in 2018-01-09 Weight 298.3 lbs 2018-01-09 Temperature 98.3 degrees Fahrenheit 2018-01-09 Heart Rate 78 bpm 2018-01-09 Respiratory Rate 16 2018-01-09 BMI 42.8 kg/m2 2018-01-09 Blood pressure systolic 124 mmHg 2018-01-09 Blood pressure diastolic 78 mmHg 2018-01-09 MEDICATIONS Medication Instructions Dosage Frequency Start Date End Date Duration Status Test strips Test Strips subcutaneously 2 times a day ReliOn Prime Test strips 12h Aug, Active Furosemide 40 mg Orally Once a day 1 tablet 24h Active Multivitamin Adults - Active Januvia 100 MG Orally Once a day 1 tablet 24h Jul, 90 days Active Potassium Chloride ER 10 MEQ Orally Once a day 2 tablet with food 24h Not-Taking MetFORMIN HCl ER 500 mg Orally Once a day 1 tablet with evening meal 24h Dec, 90 days Active Farxiga 5 mg Orally Once a day 1 tablet 24h Dec, Feb, 30 days Active Omeprazole 20 MG Orally Once a day 1 capsule 24h Active Carvedilol 6.25 MG Orally 2 times a day 1 tablet 12h Active GlyBURIDE 5 mg Orally Once a day 2 tablets 24h Jul, 90 days Active Spironolactone 25 MG Orally Once a day 1 tablet 24h Active Entresto 24-26 MG Orally Twice a day 1 tablet 12h Not-Taking RESULTS No Results PROCEDURES Procedure Date Ordered Result Body Site MICROALBUMIN, SEMIQUANT Jan 09, 2018 GLYCATED HEMOGLOBIN TEST Jan 09, 2018 URINALYSIS, AUTO, W/O SCOPE Jan 09, 2018 MICROALBUMIN, QUANTITATIVE Jan 09, 2018 ASSAY OF URINE CREATININE Jan 09, 2018 INSTRUCTIONS MEDICATIONS ADMINISTERED No Known Medications MEDICAL [...]
--- OUTSIDE RECORDS SUMMARY | 2018-03-06 19:06 | XMS REPORT ---
Author Author [facility]IE AGUIRRE [facility] Address [address] [place] [address] Care Team Providers Care Physical Aerodynamicist Name Role Phone CARLA ANNIE Unavailable PROBLEMS Type Condition ICD9-CM Code QAQ06-IM Code Onset Dates Condition Status SNOMED Code Problem Essential hypertension I10 Active 28566818 Problem Uncontrolled type 2 diabetes mellitus with hyperglycemia, without long -term current use of insulin E11.65 Active 015106581 Problem BMI 40.0-44.9, adult Z68.41 Active 686674630 Problem Diabetes education, encounter for Z71.89 Active 02938546 Problem Obstructive sleep apnea syndrome G47.33 Active 81561582 Problem Chronic systolic heart failure I50.22 Active 186630332 Problem Elevated liver enzymes R74.8 Active 493057623 Problem Elevated serum creatinine R79.89 Active 535872693 ALLERGIES No Information ENCOUNTERS Encounter Location Date Diagnosis [facility] [address] [id number], [place] [id number] Dec, [facility] [address] [id number] [place] [address] Dec, [facility] [address] [id number] [place] [address] Dec, [facility] [address] [id number] [place] [address] Dec, Uncontrolled type 2 diabetes mellitus with hyperglycemia, without long-term current use of insulin E11.65 ; BMI 40.0-44.9, adult Z68.41 and Diabetes education, encounter for Z71.89 [facility] [address] [id number] [place] [id number] Nov, [facility] [address] [id number] [place] [id number] Aug, Elevated liver enzymes R74.8 and Elevated serum creatinine R79.[address] [id number] [place] [id number] Jul, Uncontrolled type 2 diabetes mellitus with hyperglycemia, without long-term current use of insulin E11.65 ; Elevated liver enzymes R74.8 ; Elevated serum creatinine R79.89 and BMI 40.0-44.9, adult Z68.41 [facility] [address] [place] [address] 55831- 4406 June, [facility] [address] [place] [address] 47606- 6616 June, Uncontrolled type 2 diabetes mellitus with hyperglycemia, without long-term current use of insulin E11.65 ; Chronic systolic heart failure I50.22 ; Essential hypertension I10 ; Noncompliance with medication regimen Z91.14 and BMI 40.0-44.9, adult Z68.41 [facility] [address] [place] [address] 34901- 2516 June, [facility] [address]65100[place] [address]- 8276 Mar, [facility] [address] [place] [address] 74514- 2896 Feb, [facility] [address]65100[place] [address]- 2216 Dec, [facility] [address]65100[place] [address]- 1836 Nov, [facility] [address]65100[place] [address]- 5576 Sep, [facility] [id number] [place] [address] 44851- 0426 Sep, [facility] [address]65100[place] [address]- 1056 Sep, [facility] [id number] [place] [address] 42904- 1441 Sep, [facility] [address] [facility] [id number] [place] [address]- 8776 Sep, [facility] [address] [id number] Aug, [facility] [address] [facility] [id number] [place] [address]- 7885 Aug, Uncontrolled type 2 diabetes mellitus with hyperglycemia, without long-term current use of insulin E11.65 ; Obstructive sleep apnea syndrome G47.33 ; Chronic systolic heart failure I50.22 and Essential hypertension I10 [facility] [address] [facility] [id number] [place] [address]- 5320 Aug, IMMUNIZATIONS No Known Immunizations SOCIAL HISTORY Never Assessed REASON FOR VISIT appt PLAN OF CARE VITAL SIGNS MEDICATIONS Unknown [...]
--- OUTSIDE RECORDS SUMMARY | 2018-03-06 19:07 | XMS REPORT ---
Author Author LEON LAMAS Organization [facility] Address [address] [place] [address] Care Team Providers Care Behavioral Health Care Coordinator Name Role Phone LEON LAMAS Unavailable PROBLEMS Type Condition ICD9-CM Code FLW79-LT Code Onset Dates Condition Status SNOMED Code Problem Chronic systolic heart failure I50.22 Active 582691613 Problem Essential hypertension I10 Active 73873050 Problem Obstructive sleep apnea syndrome G47.33 Active 65754236 Problem Uncontrolled type 2 diabetes mellitus with hyperglycemia, without long -term current use of insulin E11.65 Active 244396634 ALLERGIES No Information ENCOUNTERS Encounter Location Date Diagnosis [facility] [address] [place] [address] 26876- 6609 Mar, [facility] [id number] [place] [address] 99128- 0986 Feb, [facility] [id number] [place] [address] 18163- 3391 Dec, [facility] [id number] [place] [address] 70160- 3911 Nov, [facility] [id number] [place] [address] 09266- 6917 Sep, [facility] [id number] [place] [address] 20713- 3359 Sep, [facility] [id number] [place] [address] 25816- 6079 Sep, [facility] [id number] [place] [address] 58080- 8909 Sep, [facility] [place] [id number] [place] [address] 56883- 5693 Sep, [facility] [address] [facility] [id number], [place] [address]- 4497 Aug, [facility] [address] [facility] [id number], [place] [address]- 7967 Aug, Uncontrolled type 2 diabetes mellitus with hyperglycemia, without long-term current use of insulin E11.65 ; Obstructive sleep apnea syndrome G47.33 ; Chronic systolic heart failure I50.22 and Essential hypertension I10 [facility] [address] [facility] [id number], [place] [address]- 3987 Aug, IMMUNIZATIONS No Known Immunizations SOCIAL HISTORY Never Assessed REASON FOR VISIT Medication question PLAN OF CARE VITAL SIGNS MEDICATIONS Unknown [...]
--- OUTSIDE RECORDS SUMMARY | 2018-03-06 19:07 | XMS REPORT ---
Author Author LEON LAMAS Organization [facility] Address [address] [place] [address] Care Team Providers Care Distance Education Coordinator Name Role Phone LEON LAMAS Unavailable PROBLEMS Type Condition ICD9-CM Code VGC53-UV Code Onset Dates Condition Status SNOMED Code Problem Chronic systolic heart failure I50.22 Active 621334650 Problem Essential hypertension I10 Active 43857464 Problem Obstructive sleep apnea syndrome G47.33 Active 72234424 Problem Uncontrolled type 2 diabetes mellitus with hyperglycemia, without long -term current use of insulin E11.65 Active 060531621 ALLERGIES No Information ENCOUNTERS Encounter Location Date Diagnosis [facility] [address] [place] [address] 59144- 3480 Mar, [facility] [id number] [place] [address] 36480- 8355 Feb, [facility] [id number] [place] [address] 40912- 0151 Dec, [facility] [id number] [place] [address] 06371- 1250 Nov, [facility] [id number] [place] [address] 04324- 1973 Sep, [facility] [id number] [place] [address] 65715- 3567 Sep, [facility] [id number] [place] [address] 46164- 5590 Sep, [facility] [id number] [place] [address] 25756- 8995 Sep, [facility] [id number] [place] [address] 82607- 8726 Sep, [facility] [address] [facility] [id number] [address]- 5220 Aug, [facility] [address] [facility] [id number] [address]- 7382 Aug, Uncontrolled type 2 diabetes mellitus with hyperglycemia, without long-term current use of insulin E11.65 ; Obstructive sleep apnea syndrome G47.33 ; Chronic systolic heart failure I50.22 and Essential hypertension I10 [facility] [address] [facility] [id number] [address]- 8243 Aug, IMMUNIZATIONS No Known Immunizations SOCIAL HISTORY Never Assessed REASON FOR VISIT Call for antibiotic PLAN OF CARE VITAL SIGNS MEDICATIONS Medication Instructions Dosage Frequency Start Date End Date Duration Status Cefdinir 300 MG Orally every 12 hrs 1 capsule 12h Aug, Sep, 10 day(s) Active RESULTS No Results PROCEDURES No Known [...]
--- OUTSIDE RECORDS SUMMARY | 2018-03-06 19:07 | XMS REPORT ---
Author Author LEON LAMAS [facility] Address [address] [place] [address] Care Team Providers Care Swimming Coach Or Instructor Name Role Phone LEON LAMAS Unavailable PROBLEMS Type Condition ICD9-CM Code AGV32-XB Code Onset Dates Condition Status SNOMED Code Problem Elevated liver enzymes R74.8 Active 469606548 Problem Elevated serum creatinine R79.89 Active 794815356 Problem Chronic systolic heart failure I50.22 Active 175568505 Problem Essential hypertension I10 Active 20178752 Problem Obstructive sleep apnea syndrome G47.33 Active 63605036 Problem Uncontrolled type 2 diabetes mellitus with hyperglycemia, without long -term current use of insulin E11.65 Active 307933319 ALLERGIES Substance Reaction Event Type Date Status OxyContin nausea Drug Allergy June, Active ENCOUNTERS Encounter Location Date Diagnosis [place] [id number] [facility] [id number] [id number] Aug, Elevated liver enzymes R74.8 and Elevated serum creatinine R79.[address] [id number] [id number] Jul, Uncontrolled type 2 diabetes mellitus with hyperglycemia, without long-term current use of insulin E11.65 ; Elevated liver enzymes R74.8 ; Elevated serum creatinine R79.89 and BMI 40.0-44.9, adult Z68.41 [facility] [address] [facility] [id number] [address] June, [facility] [address] [facility] [id number] [place] [address] June, Uncontrolled type 2 diabetes mellitus with hyperglycemia, without long-term current use of insulin E11.65 ; Chronic systolic heart failure I50.22 ; Essential hypertension I10 ; Noncompliance with medication regimen Z91.14 and BMI 40.0-44.9, adult Z68.41 [facility] [address] [address] June, [facility] [address] [place] [address] 86848- 0539 Mar, [facility] [address] [address] 14[address] Feb, [facility] [id number] [place] [address]3478- 8587 Dec, [facility] [address] [address] Nov, [facility] [address] [place] [address] 19982- 4610 Sep, [facility] [address] [place] [address] 46334- 7229 Sep, [facility] [address] [place] [address] 47487- 9847 Sep, [facility] [address] [place] [address] 01182- 5583 Sep, [facility] [address] [address] 3[address] Sep, [facility] [address] [address] 4[address] Aug, [facility] [address] [address] Aug, Uncontrolled type 2 diabetes mellitus with hyperglycemia, without long-term current use of insulin E11.65 ; Obstructive sleep apnea syndrome G47.33 ; Chronic systolic heart failure I50.22 and Essential hypertension I10 [facility] [address] [id number] [address] Aug, IMMUNIZATIONS No Known Immunizations SOCIAL HISTORY Never Assessed REASON FOR VISIT Diabetes f/u WB-MA, Metformin and potassium refill PLAN OF CARE Activity Details Follow Up IPT in [place] Reason: VITAL SIGNS Height 70 in 2017-07-17 Weight 300 lbs 2017-07-17 Temperature 98.3 degrees Fahrenheit 2017-07-17 Heart Rate 98 bpm 2017-07-17 Respiratory Rate 20 2017-07-17 Oximetry on room air:98 % 2017-07-17 BMI 43.04 kg/m2 2017-07-17 Blood pressure systolic 124 mmHg 2017-07-17 Blood pressure diastolic 84 mmHg 2017-07-17 MEDICATIONS Medication Instructions Dosage Frequency Start Date End Date Duration Status Test strips Test Strips subcutaneously 2 times a day ReliOn Prime Test strips 12h Aug, Active Omeprazole 20 MG Orally Once a day 1 capsule 24h Active Multivitamin Adults - Active Spironolactone 25 MG Orally Once a day 1 tablet 24h Active Entresto 24-26 MG Orally Twice a day 1 tablet 12h Active Carvedilol 6.25 MG Orally 2 times a day 1 tablet 12h Active GlyBURIDE 1.25 MG Orally Once a day 2 tablet with breakfast or the first main meal of the day 24h Active Furosemide 40 mg Orally Once a day 1 tablet 24h Active MetFORMIN HCl ER 500 mg Orally 2 times a day 1 tablet 12h 30 Active Potassium Chloride ER 10 MEQ Orally Once a day 2 tablet with food 24h Active RESULTS No Results PROCEDURES Procedure Date Ordered Result Body Site GLYCATED HEMOGLOBIN TEST July 17, 2017 MICROALBUMIN, SEMIQUANT July 17, 2017 COMPREHEN METABOLIC PANEL July 17, 2017 COMPLETE CBC W/AUTO DIFF WBC July 17, 2017 VENIPUNCT, ROUTINE* July 17, 2017 ASSAY THYROID STIM HORMONE July 17, 2017 INSTRUCTIONS MEDICATIONS ADMINISTERED No Known Medications MEDICAL (GENERAL) HISTORY Type Description Date Medical History diabetes mellitus Medical History congestive heart failure Medical History hypertension Medical History back pain Surgical History shoulder arthroscopy, left Surgical History orthopedic surgery, left ankle Surgical History lumbar fusion Surgical History left knee arthroscopy Hospitalization History CHF/gallbladder 08/2016
--- OUTSIDE RECORDS SUMMARY | 2018-03-06 19:07 | XMS REPORT ---
Author Author LEON LAMAS Organization [facility] Address [address] [place] [address] Care Team Providers Care Head Bander And Liner Operator Name Role Phone LEON LAMAS Unavailable PROBLEMS Type Condition ICD9-CM Code XUB44-EH Code Onset Dates Condition Status SNOMED Code Problem Chronic systolic heart failure I50.22 Active 368777467 Problem Essential hypertension I10 Active 40566240 Problem Obstructive sleep apnea syndrome G47.33 Active 29044999 Problem Uncontrolled type 2 diabetes mellitus with hyperglycemia, without long -term current use of insulin E11.65 Active 899855573 ALLERGIES No Information ENCOUNTERS Encounter Location Date Diagnosis [facility] [address] [place] [address] 94156- 9237 Mar, [facility] [id number] [place] [address] 09489- 1035 Feb, [facility] [id number] [place] [address] 95723- 3268 Dec, [facility] [id number] [place] [address] 69035- 9579 Nov, [facility] [id number] [place] [address] 50375- 7700 Sep, [facility] [id number] [place] [address] 02404- 3336 Sep, [facility] [id number] [place] [address] 10585- 4917 Sep, [facility] [id number] [place] [address] 95008- 8795 Sep, [facility] [id number] [place] [address] 95480- 7023 Sep, [facility] [address] [facility] [id number], [place] [address] 87[address] Aug, [facility] [address] [facility] [id number], [place] [address] Aug, Uncontrolled type 2 diabetes mellitus with hyperglycemia, without long-term current use of insulin E11.65 ; Obstructive sleep apnea syndrome G47.33 ; Chronic systolic heart failure I50.22 and Essential hypertension I10 [facility] [address] [facility] [id number], [place] [address] Aug, IMMUNIZATIONS No Known Immunizations SOCIAL HISTORY Never Assessed REASON FOR VISIT Entresto PLAN OF CARE VITAL SIGNS MEDICATIONS Medication Instructions Dosage Frequency Start Date End Date Duration Status Entresto 24-26 MG Orally Twice a day 1 tablet 12h Active RESULTS No Results PROCEDURES No Known [...]
--- OUTSIDE RECORDS SUMMARY | 2018-03-06 19:07 | XMS REPORT ---
Author Author LEON LAMAS [facility] Address [address] [place] [address] Care Team Providers Care Proration Clerk Name Role Phone LEON LAMAS Unavailable PROBLEMS Type Condition ICD9-CM Code HAT80-MJ Code Onset Dates Condition Status SNOMED Code Problem Elevated liver enzymes R74.8 Active 566533722 Problem Elevated serum creatinine R79.89 Active 299299497 Problem Chronic systolic heart failure I50.22 Active 979272383 Problem Essential hypertension I10 Active 49691067 Problem Obstructive sleep apnea syndrome G47.33 Active 01820475 Problem Uncontrolled type 2 diabetes mellitus with hyperglycemia, without long -term current use of insulin E11.65 Active 869016872 ALLERGIES No Information ENCOUNTERS Encounter Location Date Diagnosis [address] [id number] [id number] Aug, Elevated liver enzymes R74.8 and Elevated serum creatinine R79.[address] [id number] [place] [id number] Jul, Uncontrolled type 2 diabetes mellitus with hyperglycemia, without long-term current use of insulin E11.65 ; Elevated liver enzymes R74.8 ; Elevated serum creatinine R79.89 and BMI 40.0-44.9, adult Z68.41 [facility] [address] [id number] [address] June, [facility] [address] [facility] [id number] [address] 8666 June, Uncontrolled type 2 diabetes mellitus with hyperglycemia, without long-term current use of insulin E11.65 ; Chronic systolic heart failure I50.22 ; Essential hypertension I10 ; Noncompliance with medication regimen Z91.14 and BMI 40.0-44.9, adult Z68.41 [facility] [address]00565100[place], [place] [address] 95[address] June, [facility] [address]100[place], [place] [address]- 3777 Mar, [facility] [id number] [address] Feb, [facility] [address]100[place], [place] [address]- 4927 Dec, [facility] [address]100[place], [place] [address]- 4189 Nov, [facility] [address] [place] [address] 92111- 4409 Sep, [facility] [address] [place] [address] 36486- 6039 Sep, [facility] [address] [id number] [place] [address] 00565- 9730 Sep, [facility] [address]100[place], [place] [address]- 9785 Sep, [facility] [address], [place] [address]- 4041 Sep, [facility] [address], [place] [address]- 6613 Aug, [facility] [address], [place] [address]- 4696 Aug, Uncontrolled type 2 diabetes mellitus with hyperglycemia, without long-term current use of insulin E11.65 ; Obstructive sleep apnea syndrome G47.33 ; Chronic systolic heart failure I50.22 and Essential hypertension I10 [facility] [address], [place] [address]- 3794 Aug, IMMUNIZATIONS No Known Immunizations SOCIAL HISTORY Never Assessed REASON FOR VISIT Medications PLAN OF CARE VITAL SIGNS MEDICATIONS Medication Instructions Dosage Frequency Start Date End Date Duration Status Entresto 24-26 MG Orally Twice a day 1 tablet 12h Not-Taking Carvedilol 6.25 MG Orally 2 times a day 1 tablet 12h Active Furosemide 40 mg Orally Once a day 1 tablet 24h Active Potassium [place] ER 10 MEQ Orally Once a day 2 tablet with food 24h Not-Taking Multivitamin Adults - Active Test strips Test Strips subcutaneously 2 times a day ReliOn Prime Test strips 12h 27 Aug, 2016 Active MetFORMIN HCl ER 500 mg Orally 2 times a day 1 tablet 12h 30 Active GlyBURIDE 1.25 MG Orally Once a day 2 tablet with breakfast or the first main meal of the day 24h Active Omeprazole 20 MG Orally Once a day 1 capsule 24h Active GlyBURIDE 5 mg Orally Once a day 2 tablets 24h Jul, 30 day(s) Active Spironolactone 25 MG Orally Once a day 1 tablet 24h Active RESULTS No Results PROCEDURES No Known [...]
--- OUTSIDE RECORDS SUMMARY | 2018-03-06 19:07 | XMS REPORT ---
Author Author LEON LAMAS Organization [facility] Address [address] [place] [address] Care Team Providers Care Green Chainer Name Role Phone LEON LAMAS Unavailable PROBLEMS Type Condition ICD9-CM Code QMM97-VP Code Onset Dates Condition Status SNOMED Code Problem Chronic systolic heart failure I50.22 Active 224904835 Problem Essential hypertension I10 Active 36879005 Problem Obstructive sleep apnea syndrome G47.33 Active 91473427 Problem Uncontrolled type 2 diabetes mellitus with hyperglycemia, without long -term current use of insulin E11.65 Active 800255933 ALLERGIES No Information ENCOUNTERS Encounter Location Date Diagnosis [facility] [address] [place] [address]452- 7282 Mar, [facility] [id number] [place] [address] 29610- 4894 Feb, [facility] [id number] [place] [address] 07301- 4477 Dec, [facility] [id number] [place] [address] 22603- 8282 Nov, [facility] [id number] [place] [address] 38176- 4682 Sep, [facility] [id number] [place] [address] 47799- 4920 Sep, [facility] [id number] [place] [address] 17407- 7756 Sep, [facility] [id number] [place] [address] 12202- 6654 Sep, [facility] [id number] [place] [address] 49236- 0991 Sep, [facility] [address] [facility] [id number], [place] [address] Aug, [facility] [address] [facility] [id number], [place] [address]- 3957 Aug, Uncontrolled type 2 diabetes mellitus with hyperglycemia, without long-term current use of insulin E11.65 ; Obstructive sleep apnea syndrome G47.33 ; Chronic systolic heart failure I50.22 and Essential hypertension I10 [facility] [address] [facility] [id number], [place] [address]- 1606 Aug, IMMUNIZATIONS No Known Immunizations SOCIAL HISTORY Never Assessed REASON FOR VISIT DM ed attempt PLAN OF CARE VITAL SIGNS MEDICATIONS Unknown [...]
--- OUTSIDE RECORDS SUMMARY | 2018-03-06 19:07 | XMS REPORT ---
Author Author LEON LAMAS [facility] Address [address] [place] [address] Care Team Providers Care Inspector Tester Sorter Name Role Phone LEON LAMAS Unavailable PROBLEMS Type Condition ICD9-CM Code CYM54-JM Code Onset Dates Condition Status SNOMED Code Problem Elevated liver enzymes R74.8 Active 546682639 Problem Elevated serum creatinine R79.89 Active 743866157 Problem Chronic systolic heart failure I50.22 Active 568587827 Problem Essential hypertension I10 Active 17912448 Problem Obstructive sleep apnea syndrome G47.33 Active 66520828 Problem Uncontrolled type 2 diabetes mellitus with hyperglycemia, without long -term current use of insulin E11.65 Active 793364395 ALLERGIES No Information ENCOUNTERS Encounter Location Date Diagnosis [address] [id number] [id number] Aug, Elevated liver enzymes R74.8 and Elevated serum creatinine R79.[address] [id number][place] [id number] Jul, Uncontrolled type 2 diabetes mellitus with hyperglycemia, without long-term current use of insulin E11.65 ; Elevated liver enzymes R74.8 ; Elevated serum creatinine R79.89 and BMI 40.0-44.9, adult Z68.41 [facility] [address] [id number] [address]- 6356 June, [facility] [address] [facility] [id number][place] [address]- 2436 June, Uncontrolled type 2 diabetes mellitus with hyperglycemia, without long-term current use of insulin E11.65 ; Chronic systolic heart failure I50.22 ; Essential hypertension I10 ; Noncompliance with medication regimen Z91.14 and BMI 40.0-44.9, adult Z68.41 [facility] [address]005[address]100[place], [place] [address]- 6734 June, [facility] [address], [place] [address]- 9454 Mar, [facility] [address] 6461 Feb, [facility] [address]00565100[place], [place] [address]- 7354 Dec, [facility] [address]100[place], [place] [address]- 1692 Nov, [facility] [address] [place] [address] 95016- 0544 Sep, [facility] [address] [place] [address] 01830- 3882 Sep, [facility] [id number] [place] [address] 83222- 2622 Sep, [facility] [address]65100[place], [place] [address]- 7882 Sep, [facility] [address], [place] [address]- 9526 Sep, [facility] [address]100[place], [place] [address]- 4158 Aug, [facility] [address], [place] [address]- 7604 Aug, Uncontrolled type 2 diabetes mellitus with hyperglycemia, without long-term current use of insulin E11.65 ; Obstructive sleep apnea syndrome G47.33 ; Chronic systolic heart failure I50.22 and Essential hypertension I10 [facility] [address], [place] [address]- 6113 Aug, IMMUNIZATIONS No Known Immunizations SOCIAL HISTORY Never Assessed REASON FOR VISIT Refill request PLAN OF CARE VITAL SIGNS MEDICATIONS [...]
--- OUTSIDE RECORDS SUMMARY | 2018-03-06 19:07 | XMS REPORT ---
Author Author LEON LAMAS Organization [facility] Address [address] [place] [address] Care Team Providers Care Tailor Fitter Name Role Phone LEON LAMAS Unavailable PROBLEMS Type Condition ICD9-CM Code LGM51-OS Code Onset Dates Condition Status SNOMED Code Problem Elevated liver enzymes R74.8 Active 922924132 Problem Elevated serum creatinine R79.89 Active 503328852 Problem Chronic systolic heart failure I50.22 Active 822502223 Problem Essential hypertension I10 Active 35540965 Problem Obstructive sleep apnea syndrome G47.33 Active 08949408 Problem Uncontrolled type 2 diabetes mellitus with hyperglycemia, without long -term current use of insulin E11.65 Active 462736150 ALLERGIES No Information ENCOUNTERS Encounter Location Date [facility] [address] [place] [address] [id number] [place] [id number] Jul, Uncontrolled type 2 diabetes mellitus with hyperglycemia, without long-term current use of insulin E11.65 ; Elevated liver enzymes R74.8 ; Elevated serum creatinine R79.89 and BMI 40.0-44.9, adult Z68.41 [place] [address] [place] [address] 70342- 7022 June, [facility] [address] [place] [address] 09310- 5037 June, Uncontrolled type 2 diabetes mellitus with hyperglycemia, without long-term current use of insulin E11.65 ; Chronic systolic heart failure I50.22 ; Essential hypertension I10 ; Noncompliance with medication regimen Z91.14 and BMI 40.0-44.9, adult Z68.41 [facility] [address] [id number] [address]- 2371 June, [place] [id number] [place] [address] 43631- 7028 Mar, [facility] [address] [address] Feb, [facility] [address] 1283 Dec, [facility] [address], [place] [address]- 0071 Nov, [facility] [address], [place] [address]- 1583 Sep, [facility] [address] [address]- 7276 Sep, [facility] [address] [place] [address] 94450- 7977 Sep, [facility] [address] [id number] [address]- 5259 Sep, [facility] [address] [address]- 1789 Sep, [facility] [address] [address]- 9987 Aug, [facility] [address] [address]- 6352 Aug, Uncontrolled type 2 diabetes mellitus with hyperglycemia, without long-term current use of insulin E11.65 ; Obstructive sleep apnea syndrome G47.33 ; Chronic systolic heart failure I50.22 and Essential hypertension I10 [facility] [address] [id number] [address]- 0791 Aug, IMMUNIZATIONS No Known Immunizations SOCIAL HISTORY Never Assessed REASON FOR VISIT Repository Medication PLAN OF CARE VITAL SIGNS MEDICATIONS Unknown [...]
--- OUTSIDE RECORDS SUMMARY | 2018-03-06 19:07 | XMS REPORT ---
Author Author LEON LAMAS Organization [facility] Address [address] [place] [address] Care Team Providers Care Bellows Assembler Name Role Phone LEON LAMAS Unavailable PROBLEMS Type Condition ICD9-CM Code OCF17-PH Code Onset Dates Condition Status SNOMED Code Problem Chronic systolic heart failure I50.22 Active 846139442 Problem Essential hypertension I10 Active 11717010 Problem Obstructive sleep apnea syndrome G47.33 Active 60990117 Problem Uncontrolled type 2 diabetes mellitus with hyperglycemia, without long -term current use of insulin E11.65 Active 173729671 ALLERGIES No Information ENCOUNTERS Encounter Location Date Diagnosis [facility] [address] [place] [address] 86332- 0204 Mar, [facility] [id number] [place] [address] 03934- 7089 Feb, [facility] [id number] [place] [address] 01935- 1920 Dec, [facility] [id number] [place] [address] 36099- 1926 Nov, [facility] [id number] [place] [address] 71834- 0362 Sep, [facility] [id number] [place] [address] 49827- 2181 Sep, [facility] [id number] [place] [address] 26863- 8224 Sep, [facility] [id number] [place] [address] 96090- 9151 Sep, [facility] [id number] [place] [address] 18550- 3472 Sep, [facility] [address] [facility] [id number], [place] [address]- 5440 Aug, [facility] [address] [facility] [id number], [place] [address]- 8227 Aug, Uncontrolled type 2 diabetes mellitus with hyperglycemia, without long-term current use of insulin E11.65 ; Obstructive sleep apnea syndrome G47.33 ; Chronic systolic heart failure I50.22 and Essential hypertension I10 [facility] [address] [facility] [id number], [place] [address]- 5487 Aug, IMMUNIZATIONS No Known Immunizations SOCIAL HISTORY Never Assessed REASON FOR VISIT refill PLAN OF CARE VITAL SIGNS MEDICATIONS Unknown [...]
[2018-03-06 19:38] LABS: BASOPHILS # (AUTO) 0.1 10^3/uL (0.0-0.1); BASOPHILS % (AUTO) 1 % (0-10); EOSINOPHILS # (AUTO) 0.1 10^3/uL (0.0-0.3); EOSINOPHILS % (AUTO) 1 % (0-10); HEMATOCRIT 42 % (40-54); LYMPHOCYTES # (AUTO) 1.2 X 10^3 (1.0-4.0); LYMPHOCYTES % (AUTO) 12 % (12-44); MEAN CORPUSCULAR HEMOGLOBIN 26 PG (25-34); MEAN CORPUSCULAR HGB CONC 34 G/DL (32-36); MEAN CORPUSCULAR VOLUME 78 FL (80-99); MEAN PLATELET VOLUME 11.7 FL (7.4-10.4); MONOCYTES # (AUTO) 1.1 X 10^3 (0.0-1.0); MONOCYTES % (AUTO) 11 % (0-12); NEUTROPHILS # (AUTO) 7.4 X 10^3 (1.8-7.8); NEUTROPHILS % (AUTO) 75 % (42-75); PLATELET COUNT 140 10^3/uL (130-400); RED BLOOD COUNT 5.35 10^6/uL (4.35-5.85); RED CELL DISTRIBUTION WIDTH 15.7 % (10.0-14.5); WHITE BLOOD COUNT 9.8 10^3/uL (4.3-11.0)
--- NOTE | 2018-03-06 19:57 | ED Respiratory ---
General Chief Complaint: Cough/Cold/Flu Symptoms Stated Complaint: SOB,COUGHING,CONGESTED Source: patient Exam Limitations: no limitations History of Present Illness Date Seen by Provider: Mar 06, 2018 Time Seen by Provider: 19:55 Initial Comments To ER per private vehicle with reports of a three-day history of nasal congestion, productive cough, shortness of breath, chills, chest pain worsened with coughing. He does have a history of nonischemic cardiomyopathy with ejection fraction of about 30%. He has an implanted defibrillator. He is on furosemide. Timing/Duration: constant Severity: moderate Associated Symptoms: cough, shortness of breath Allergies and Home Medications Allergies Coded Allergies: oxycodone (Verified Adverse Reaction, Unknown, NAUSEA, 09/03/16) Home Medications Carvedilol 6.25 Mg Tablet, 6.25 MG PO BID, (Reported) Cefdinir 300 Mg Capsule, 300 MG PO BID Prescribed by: WILLIAM ARROYO on 01/19/17 0913 Cefdinir 300 Mg Capsule, 300 MG PO BID Prescribed by: ARNULFO TEAGUE on 01/04/18 131 Doxycycline Hyclate 100 Mg Capsule, 100 MG PO BID Prescribed by: ARNULFO TEAGUE on 03/06/182031 Furosemide 40 Mg Tablet, 40 MG PO DAILY, (Reported) Furosemide 20 Mg Tablet, 20 MG PO DAILY Prescribed by: ARNULFO TEAGUE on 01/04/18 131 Glyburide 2.5 Mg Tablet, 1.25 MG PO BID, (Reported) TAKES 1/2 (2.5MG) TABLET Losartan Potassium 25 Mg Tablet, 25 MG PO DAILY Prescribed by: ARNULFO TEAGUE on 01/04/18 131 Magnesium Oxide 400 Mg Capsule, 400 MG PO BID Prescribed by: ARNULFO TEAGUE on 01/04/18 131 Metformin HCl 500 Mg Tab.er.24, 500 MG PO BID WITH MEALS, (Reported) Omeprazole Magnesium 20 Mg Tablet.dr, 20 MG PO DAILY, (Reported) Potassium Chloride 10 Meq Capsule.er, 10 MEQ PO BID, (Reported) Sacubitril/Valsartan 1 Each Tablet, 1 TAB PO BID, (Reported) Spironolactone 25 Mg Tablet, 25 MG PO DAILY, (Reported) Patient Home Medication List Home Medication List Reviewed: Yes Review of Systems Review of Systems Constitutional: see HPI EENTM: see HPI Respiratory: see HPI, cough, short of breath Cardiovascular: no symptoms reported Genitourinary: no symptoms reported Musculoskeletal: no symptoms reported Skin: no symptoms reported Psychiatric/Neurological: No Symptoms Reported Hematologic/Lymphatic: No Symptoms Reported Immunological/Allergic: no symptoms reported Past Xsgzkcq-Ifvubm-Eecwxe Hx Patient Social History Drug of Choice: Marijuana Type Used: Cigarettes Former Smoker, Quit: Jan 19, 1992 Recent Foreign Travel: Yes ([facility] [place]) Contact w/Someone Who Travel: Yes ([facility] [place]) Recent Hopitalizations: No Seasonal Allergies Seasonal Allergies: Yes Past Medical History Surgeries: Yes (L ANKLE, BACK SURGERY, L SHOULDER,) Orthopedic Respiratory: Yes Sleep Apnea Currently Using CPAP: Yes Cardiac: Yes High Cholesterol, Hypertension Neurological: No Sexually Transmitted Disease: No HIV/AIDS: No Genitourinary: No Gastrointestinal: No Gastroesophageal Reflux Musculoskeletal: Yes Arthritis, Back Injury, Fractures Endocrine: Yes Diabetes, Non-Insulin dep HEENT: No Loss of Vision: Denies Hearing Impairment: Denies Cancer: No Psychosocial: No Integumentary: No Blood Disorders: No Adverse Reaction/Blood Tranf: No Family Medical History Arthritis 19 FATHER 19 MOTHER Colon cancer 19 FATHER Headache disorder 19 MOTHER Neoplasm 19 FATHER (LUNG CANCER) 19 MOTHER (PANCREATIC CANCER) Thyroid disease 19 MOTHER No Pertinent Family Hx Physical Exam Vital Signs - First Documented 03/06/18 19:10 Temp 98.6 Pulse 112 Resp 17 B/P (MAP) 155/111 (126) Pulse Ox 96 O2 Delivery Room Air Capillary Refill : Height: 5'10.00" Weight: 280lbs. 0.1oz. 127.810208yq; 42.9 BMI Method:Stated General Appearance: WD/WN, no apparent distress, obese, other (speaks in full sentences, not tachypneic.) Eyes: Bilateral Eye Normal Inspection, Bilateral Eye PERRL, Bilateral Eye EOMI HEENT: PERRL/EOMI, normal ENT inspection Respiratory: no respiratory distress, no accessory muscle use, decreased breath sounds Cardiovascular: no murmur, tachycardia Gastrointestinal: normal bowel sounds, non tender, soft Neurologic/Psychiatric: alert, normal mood/affect, oriented x 3 Skin: normal color, warm/dry Focused Exam Lactate Level 03/06/18 19:24: Lactic Acid Level 1.53 Lactic Acid Level Laboratory Tests Test 03/06/18 19:24 Lactic Acid Level 1.53 MMOL/L (0.50-2.00) Progress/Results/Core Measures Suspected Sepsis SIRS Temperature: Pulse: Respiratory Rate: Laboratory Tests 03/06/18 19:24: White Blood Count 9.8 Blood Pressure / Mean: 03/06/18 19:24: Lactic Acid Level 1.53 Laboratory Tests 03/06/18 19:24: Creatinine 1.13, Platelet Count 140, Total Bilirubin 0.6 Results/Orders Lab Results Laboratory Tests Test 03/06/18 19:24 Range/Units White Blood Count 9.8 4.3-11.0 10^3/uL Red Blood Count 5.35 4.35-5.85 10^6/uL Hemoglobin 14.0 13.3-17.7 G/DL Hematocrit 42 40-54 % Mean Corpuscular Volume 78 L 80-99 FL Mean Corpuscular Hemoglobin 26 25-34 PG Mean Corpuscular Hemoglobin Concent 34 32-36 G/DL Red Cell Distribution Width 15.7 H 10.0-14.5 % Platelet Count 140 130-400 10^3/uL Mean Platelet Volume 11.7 H 7.4-10.4 FL Neutrophils (%) (Auto) 75 42-75 % Lymphocytes (%) (Auto) 12 12-44 % Monocytes (%) (Auto) 11 0-12 % Eosinophils (%) (Auto) 1 0-10 % Basophils (%) (Auto) 1 0-10 % Neutrophils # (Auto) 7.4 1.8-7.8 X 10^3 Lymphocytes # (Auto) 1.2 1.0-4.0 X 10^3 Monocytes # (Auto) 1.1 H 0.0-1.0 X 10^3 Eosinophils # (Auto) 0.1 0.0-0.3 10^3/uL Basophils # (Auto) 0.1 0.0-0.1 10^3/uL Sodium Level 133 L 135-145 MMOL/L Potassium Level 4.5 3.6-5.0 MMOL/L Chloride Level 98 98-107 MMOL/L Carbon Dioxide Level 25 21-32 MMOL/L Anion Gap 10 5-14 MMOL/L Blood Urea Nitrogen 10 7-18 MG/DL Creatinine 1.13 0.60-1.30 MG/DL Estimat Glomerular Filtration Rate > 60 BUN/Creatinine Ratio 9 Glucose Level 237 H 70-105 MG/DL Lactic Acid Level 1.53 0.50-2.00 MMOL/L Calcium Level 9.1 8.5-10.1 MG/DL Corrected Calcium 9.0 8.5-10.1 MG/DL Total Bilirubin 0.6 0.1-1.0 MG/DL Aspartate Amino Transf (AST/SGOT) 36 H 5-34 U/L Alanine Aminotransferase (ALT/SGPT) 41 0-55 U/L Alkaline Phosphatase 62 40-136 U/L Troponin I < 0.028 <0.028 NG/ML B-Type Natriuretic Peptide 283.5 H <100.0 PG/ML Total Protein 7.8 6.4-8.2 GM/DL Albumin 4.1 3.2-4.5 GM/DL Micro Results Microbiology 03/06/18 Influenza Types A,B Antigen (LAUREN) - Final, Complete My Orders Orders - ARNULFO TEAGUE APRN BNP (03/06/18 19:24) Troponin I (03/06/18 19:24) Ekg Tracing (03/06/18 19:24) Continuous Ekg Monitoring (03/06/18 19:24) Chest Pa/Lat (2 View) (03/06/18 19:24) Cbc With Automated Diff (03/06/18 19:24) Comprehensive Metabolic Panel (03/06/18 19:24) Blood Culture (03/06/18 19:24) Lactic Acid Analyzer (03/06/18 19:24) Influenza A And B Antigens (03/06/18 19:31) Furosemide Injection (Lasix Injection) (03/06/18 20:45) Benzonatate Capsule (Tessalon Perles) (03/06/18 20:45) Vital Signs/I&O 03/06/18 03/06/18 19:10 19:24 Temp 98.6 98.6 Pulse 112 112 Resp 17 17 B/P (MAP) 155/111 (126) 155/111 Pulse Ox 96 96 O2 Delivery Room Air Room Air Capillary Refill : Diagnostic Imaging Diagonstic Imaging: Xray Plain Films/CT/US/NM/MRI: chest Comments NAME: NIKHIL SARAH JR [facility] REC#: [id number] PT STATUS: REG ER : 1965 PHYSICIAN: ARNULFO TEAGUE APRN ADMIT DATE: 03/06/18/ER Draft Date of Exam:03/06/18 CHEST PA/LAT (2 VIEW) PATIENT HISTORY: Cough and congestion. TECHNIQUE: Single frontal view of the chest COMPARISON: 01/04/2018 FINDINGS: The cardiac silhouette is mildly large. There is prominence of the denzel bilaterally. There is mild airspace opacity in the right upper lobe. No pleural effusion or pneumothorax is seen. The left-sided pacemaker appears to be in stable position. IMPRESSION: 1. Mild airspace opacity in the right upper lobe, may represent infection or edema. 2. Stable hilar prominence, may be due to vascular congestion or lymphadenopathy. Dictated on workstation # [id number] Dict: 03/06/182013 Trans: 03/06/182017 MARGO [id number] Interpreted by: NIRANJAN AGUILAR MD Electronically signed by: Departure Communication (Admissions) 2037 I will give a dose of Lasix here as his blood pressure can handle that and kidney function does not indicate dehydration. I suspect that his right upper lobe chest x-ray abnormality likely represents a pneumonia rather than an area of edema given the minimally elevated BNP and the presence of cough and chills. However we will do a dose of 40 mg Lasix IV and then prescribed him doxycycline and Tessalon Perles for cough suppression. He and significant other agree to call Dr. Arroyo tomorrow to make an appointment to be seen follow-up this week. He is 97% on room air, heart rate 103 sinus. Impression Primary Impression: Pneumonia Qualified Codes: J18.1 - Lobar pneumonia, unspecified organism Disposition: HOME, SELF-CARE Condition: Stable Departure-Patient Inst. Decision time for Depature: 20:30 Referrals: LEON LAMAS MD (PCP/Family) Primary Care Physician Patient Instructions: Pneumonia, Adult (DC) Add. Discharge Instructions: 1. Follow-up with Dr. Arroyo. Call tomorrow to make an appointment to be seen this week. Take antibiotics as directed. Return to ER for any worsening. All discharge instructions reviewed with patient and/or family. Voiced understanding. Scripts Benzonatate (TESSALON PERLES) 100 Mg Capsule 100 MG PO TID PRN for COUGH, #15 CAP Prov: ARNULFO TEAGUE APRN 03/06/18 Doxycycline Hyclate (Doxycycline Hyclate) 100 Mg Capsule 100 MG PO BID, #14 CAP Prov: ARNULFO TEAGUE PV DESIGN AND INSTALLATION TECHNICIAN 03/06/18 Copy Copies To 1: WILLIAM ARROYO MD, PETER J APRN Mar 06, 2018 19:57
[2018-03-06 20:01] LABS: ALANINE AMINOTRANSFERASE 41 U/L (0-55); ALBUMIN 4.1 GM/DL (3.2-4.5); ALKALINE PHOSPHATASE 62 U/L (40-136); BILIRUBIN,TOTAL 0.6 MG/DL (0.1-1.0); BUN/CREATININE RATIO 9; CALCIUM 9.1 MG/DL (8.5-10.1); CARBON DIOXIDE 25 MMOL/L (21-32); CHLORIDE 98 MMOL/L (98-107); CREATININE SERUM 1.13 MG/DL (0.60-1.30); GFR ESTIMATED > 60; GLUCOSE 237 MG/DL (70-105); POTASSIUM 4.5 MMOL/L (3.6-5.0); SODIUM 133 MMOL/L (135-145); TOTAL PROTEIN 7.8 GM/DL (6.4-8.2)
--- NOTE | 2018-03-06 20:19 | Diagnostic Imaging Report ---
PATIENT HISTORY: Cough and congestion. TECHNIQUE: Single frontal view of the chest COMPARISON: 01/04/2018 FINDINGS: The cardiac silhouette is mildly large. There is prominence of the denzel bilaterally. There is mild airspace opacity in the right upper lobe. No pleural effusion or pneumothorax is seen. The left-sided pacemaker appears to be in stable position. IMPRESSION: 1. Mild airspace opacity in the right upper lobe, may represent infection or edema. 2. Stable hilar prominence, may be due to vascular congestion or lymphadenopathy. Dictated by: Dictated on workstation # [id number]
[2018-03-06] MEDS ORDERED: DOXY100C2 PO (20:32)
[2018-03-06] MEDS ORDERED: BENZ100C18 PO (20:41)
[2018-03-06] MEDS ORDERED: FUROSEMIDE 40 MG/4 ML INJ (LASIX) IVP ONE (20:45)
[2018-03-06] MEDS ORDERED: BENZONATATE 100 MG (TESSALON) CAPSULE PO SCH (20:45)
[2018-03-06] MEDS ORDERED: DOXYCYCLINE 100 MG (VIBRAMYCIN) TABLET PO SCH (21:00)
[2018-03-06] MEDS ORDERED: LIDOCAINE 1% INJ 20 ML 20 ML VIAL ONE (21:03)
--- NOTE | 2018-03-06 21:10 | NUR ---
Vivek Serrano NP was notified about pt's temp at ut. Orders were placed.
[2018-03-06] MEDS ORDERED: ACETAMINOPHEN 500 MG TAB (TYLENOL) PO ONE (21:15)
[2018-03-06] MEDS ORDERED: cefTRIAXone 1,000 MG/2.86 ml vial (IM ONLY) IM SCH (21:15)
[2018-03-06] MEDS ORDERED: IBUPROFEN 800 MG (MOTRIN) TAB PO ONE (21:15)
[2018-03-07 06:34] VITALS: BP 139/99
== END 2018-03-06 21:14 | disposition home or self-care (01) ==
LOC: EDUNIT# 18:59 → ER 19:02
DX: J18.9 Pneumonia, unspecified organism (principal); I42.9 Cardiomyopathy, unspecified; G47.30 Sleep apnea, unspecified; E78.00 Pure hypercholesterolemia, unspecified; I10 Essential (primary) hypertension; K21.9 Gastro-esophageal reflux disease without esophagitis; E11.9 Type 2 diabetes mellitus without complications; Z80.0 Family history of malignant neoplasm of digestive organs; Z80.1 Family history of malignant neoplasm of trachea, bronchus and lung; Z98.890 Other specified postprocedural states; Z95.810 Presence of automatic (implantable) cardiac defibrillator; Z88.5 Allergy status to narcotic agent; Z87.891 Personal history of nicotine dependence; Z79.4 Long term (current) use of insulin
CPT/HCPCS: 36415; 71046; 80053; 83605; 83880; 84484; 85025; 87040; 87804; 93005; 96372; 96374

== ENCOUNTER → 2018-06-21 | Outpatient (CLI) | payer MEDICARE ==
[~2018-06-21] MED LIST changes: +BENZ100C18 PO; +DOXY100C2 PO; +LOSA100T57 PO; -LOSA100T8 PO; +LOSA25TA41 PO; -LOSA25TA6 PO
== END ==
LOC: RAD 11:03
PROVIDERS: ATTEND Internal Medicine Cardiovascular Disease
DX: I25.10 Atherosclerotic heart disease of native coronary artery without angina pectoris (principal); I11.0 Hypertensive heart disease with heart failure; I50.9 Heart failure, unspecified; G47.9 Sleep disorder, unspecified
CPT/HCPCS: 93306

== ENCOUNTER 2018-08-09 08:45 | Outpatient (CLI) | payer MEDICARE ==
[~2018-08-09] VITALS: Ht 177.8 cm; Wt 141.8 kg
[2018-08-09] MEDS ORDERED: MULT-974 PO (09:05)
[2018-08-09] MEDS ORDERED: DULA0.75 SQ (09:05)
[2018-08-09 09:19] VITALS: BP 128/92
[2018-08-09 09:39] LABS: BASOPHILS % (AUTO) 1 % (0-10); EOSINOPHILS # (AUTO) 0.2 10^3/uL (0.0-0.3); EOSINOPHILS % (AUTO) 3 % (0-10); HEMATOCRIT 48 % (40-54); HEMOGLOBIN 16.5 G/DL (13.3-17.7); LYMPHOCYTES # (AUTO) 1.1 X 10^3 (1.0-4.0); LYMPHOCYTES % (AUTO) 14 % (12-44); MEAN CORPUSCULAR HEMOGLOBIN 28 PG (25-34); MEAN CORPUSCULAR HGB CONC 34 G/DL (32-36); MEAN CORPUSCULAR VOLUME 82 FL (80-99); MEAN PLATELET VOLUME 12.3 FL (7.4-10.4); MONOCYTES % (AUTO) 14 % (0-12); NEUTROPHILS # (AUTO) 5.1 X 10^3 (1.8-7.8); NEUTROPHILS % (AUTO) 69 % (42-75); PLATELET COUNT 98 10^3/uL (130-400); RED CELL DISTRIBUTION WIDTH 16.5 % (10.0-14.5); WHITE BLOOD COUNT 7.4 10^3/uL (4.3-11.0)
== END 2018-08-09 14:50 ==
LOC: PREOP 08:45
PROVIDERS: ATTEND Surgery
DX: Z01.812 Encounter for preprocedural laboratory examination (principal); Z11.2 Encounter for screening for other bacterial diseases; K42.9 Umbilical hernia without obstruction or gangrene
CPT/HCPCS: 36415; 85025; 87081

== ENCOUNTER → 2019-05-01 | Outpatient (CLI) | payer MEDICARE ==
[~2019-05-01] VITALS: Ht 178 cm; Wt 138.0 kg
[~2019-05-01] MED LIST changes: +ACHD5005 PO; +CATHETER FLUSH 10 ML SYR IV PRN; +DOCU-143 PO; +DULA0.75 SQ; +MULT-974 PO; +OMEP40CA27 PO; -OMEP40CA36 PO; +REGADENOSON 0.4 MG/5 ML SYR (LEXISCAN) IV ONE; -SACU1TAB PO; +SACU1TAB2 PO
--- NOTE | 2019-05-01 19:20 | STRESS TEST ---
DATE OF SERVICE: EXERCISE MYOVIEW STRESS TEST REPORT REFERRING PHYSICIAN: Dr. Nereyda Kim, [facility]. Baseline heart rate is 91. Baseline blood pressure 143/93. Baseline EKG is sinus rhythm with no ischemic changes. In summary, the patient was injected with 10.42 mCi of technetium-99 Myoview and the resting images were obtained. Then, the patient started exercising with a baseline heart rate, blood pressure and EKG mentioned above. The patient was able to exercise for 4 minutes 30 seconds on standard Oseas protocol. With peak exercise level, EKG was showing nondiagnostic changes. Blood pressure was 217/103. During recovery, heart rate and blood pressure returned to baseline. EKG returned to baseline. The resting and stress images were reviewed and compared in the short axis, horizontal long axis, and vertical long axis views. Review of the images showed fix defect involving the whole inferior wall. On the gated images, the left ventricle is dilated with diffuse left ventricular hypokinesia, calculated ejection fraction 30%. CONCLUSION: 1. Fair exercise tolerance, a total of 4 minutes 30 seconds on standard Oseas protocol, total of 6.4 METS achieving 91% of maximum expected heart rate. 2. Severe hypertensive response to exercise with peak blood pressure 217/103, returned to baseline during recovery. 3. Nondiagnostic EKG changes with exercise, returned to baseline during recovery. 4. Fixed defect involving the whole inferior wall. 5. Dilated left ventricle with diffuse left ventricular hypokinesia, calculated ejection fraction 30%. Job ID: [id number] DocumentID: [id number] Dictated Date: 05/01/2019 16:07:21 User Support Analyst Supervisor Date: 05/01/2019 19:19:37 Dictated By: WILLIAM CHACON MD
== END ==
LOC: CARD 11:09
PROVIDERS: ATTEND Physician Assistant
DX: I11.0 Hypertensive heart disease with heart failure (principal); I50.9 Heart failure, unspecified; I25.10 Atherosclerotic heart disease of native coronary artery without angina pectoris
CPT/HCPCS: 78452; 93017

== ENCOUNTER → 2019-10-28 | Outpatient (CLI) | payer MEDICARE ==
[~2019-10-28] MED LIST changes: +ACET-168 PO; -CATHETER FLUSH 10 ML SYR IV PRN; +DAPA10TA PO; +GABA300C PO; +GLYB5TAB6 PO; +INSU100V5 SQ; +LISI-552 PO; +LOVA20TA2 PO; +NAPR-1084 PO; +OMEP20TA7 PO; -REGADENOSON 0.4 MG/5 ML SYR (LEXISCAN) IV ONE; +SIMV20TA26 PO
== END ==
LOC: CARD 09:21
PROVIDERS: ATTEND Internal Medicine Cardiovascular Disease
DX: I25.10 Atherosclerotic heart disease of native coronary artery without angina pectoris (principal); I11.0 Hypertensive heart disease with heart failure; I50.9 Heart failure, unspecified; I42.0 Dilated cardiomyopathy; G47.33 Obstructive sleep apnea (adult) (pediatric); Z20.828 Contact with and (suspected) exposure to other viral communicable diseases
CPT/HCPCS: 93306

== ENCOUNTER 2019-10-30 10:54 | Day surgery (SDC) | payer MEDICARE ==
[~2019-10-30] VITALS: Ht 177 cm; Wt 136.0 kg
[2019-10-30] VITALS (9 sets, daily range): BP systolic 122–168; BP diastolic 63–103
[~2019-10-30 10:54] MED LIST changes: -ACET-168 PO; -DAPA10TA PO; -GABA300C PO; -GLYB5TAB6 PO; -INSU100V5 SQ; -LISI-552 PO; -LOVA20TA2 PO; -NAPR-1084 PO; -OMEP20TA7 PO; -SIMV20TA26 PO
[2019-10-30] MEDS ORDERED: NS IV 1000 ML 1,000 ML IV ONE (11:13)
[2019-10-30] MEDS ORDERED: LIDOCAINE 1% INJ 20 ML 20 ML VIAL ONE (11:14)
[2019-10-30] MEDS ORDERED: ceFAZolin INJECTION 1,000 MG ONE (11:14)
[2019-10-30] MEDS ORDERED: HEParin (CATH LAB) 1,000 ML IV ONE (11:14)
[2019-10-30] MEDS ORDERED: NS IV 1000 ML 1,000 ML ONE (11:14)
[2019-10-30] MEDS ORDERED: BACITRACIN INJECTION 50,000 UNIT, SODIUM CHLORIDE 0.9% IRRIGATIO 500 ML IR ONE ×2 (11:15)
[2019-10-30 11:48] LABS: HEMOGLOBIN 14.1 G/DL (13.3-17.7); MEAN PLATELET VOLUME 11.3 FL (7.4-10.4); RED CELL DISTRIBUTION WIDTH 14.1 % (10.0-14.5); WHITE BLOOD COUNT 8.2 10^3/uL (4.3-11.0)
[2019-10-30 11:59] LABS: INR 0.9 (0.8-1.4); PROTHROMBIN TIME PATIENT 12.9 SEC (12.2-14.7)
[2019-10-30] MEDS ORDERED: NS (IVPB) 50 ML ONE (12:03)
--- NOTE | 2019-10-30 12:08 | Diagnostic Imaging Report ---
INDICATION: Preop for ICD generator change Frontal chest obtained at 1148 a.m. and compared to 03/06/2018. There is cardiomegaly with mild central vascular prominence. There is no new infiltrate or pneumothorax or pleural fluid. Defibrillator device is unchanged. IMPRESSION: Cardiomegaly with mild central vascular prominence. No acute process in the chest. Dictated by: Dictated on workstation # [id number]
[2019-10-30 12:09] LABS: ALANINE AMINOTRANSFERASE 56 U/L (0-55); ALBUMIN 4.3 GM/DL (3.2-4.5); ALKALINE PHOSPHATASE 50 U/L (40-136); BILIRUBIN,TOTAL 0.4 MG/DL (0.1-1.0); BUN/CREATININE RATIO 13; CALCIUM 9.6 MG/DL (8.5-10.1); CARBON DIOXIDE 25 MMOL/L (21-32); CHLORIDE 100 MMOL/L (98-107); CHOLESTEROL 145 MG/DL (< 200); CREATININE SERUM 0.92 MG/DL (0.60-1.30); GFR ESTIMATED > 60; GLUCOSE 222 MG/DL (70-105); HDL CHOLESTEROL 40 MG/DL (40-60); POTASSIUM 4.3 MMOL/L (3.6-5.0); SODIUM 137 MMOL/L (135-145); TOTAL PROTEIN 7.6 GM/DL (6.4-8.2); TRIGLYCERIDES 185 MG/DL (<150); VLDL CHOLESTEROL 37 MG/DL (5-40)
[2019-10-30] MEDS ORDERED: MIDAZOLAM 5 MG/5 ML (VERSED) VIAL ONE ×2 (12:32→13:08)
[2019-10-30] MEDS ORDERED: fentaNYL INJECTION 100 MCG/2 ML AMP ONE ×2 (12:32→13:08)
[2019-10-30] MEDS ORDERED: GLYB5TAB6 PO (12:37)
[2019-10-30] MEDS ORDERED: GABA300C PO (12:37)
[2019-10-30] MEDS ORDERED: OMEP20TA7 PO (12:37)
[2019-10-30] MEDS ORDERED: LOVA20TA2 PO (12:37)
[2019-10-30] MEDS ORDERED: NAPR-1084 PO (12:37)
[2019-10-30] MEDS ORDERED: SPIR25TA5 PO (12:37)
[2019-10-30] MEDS ORDERED: SIMV20TA26 PO (12:37)
[2019-10-30] MEDS ORDERED: INSU100V5 SQ (12:37)
[2019-10-30] MEDS ORDERED: LISI-552 PO (12:37)
[2019-10-30] MEDS ORDERED: DAPA10TA PO (12:37)
[2019-10-30] MEDS ORDERED: ACET-168 PO (12:45)
--- NOTE | 2019-10-30 12:46 | NUR ---
I SPOKE WITH THE PATIENT, CALLED [facility], AND WENT THROUGH THE MEDS BROUGHT FROM HOME TO COMPLETE THIS MED REC. FUROSEMIDE 40MG LAST FILLED 08/03/2019 #90 90DS CARVEDILOL 6.25MG LAST FILLED 08/22/2019 #180 90DS LEVEMIR LAST FILLED 09/23/2019 37DS LOVASTATIN 20MG LAST FILLED 07/15/2019 #180 90DS GLYBURIDE 5MG LAST FILLED 07/05/2019 #90 90DS LISINOPRIL 20MG LAST FILLED 08/22/2019 #90 90DS METFORMIN ER 500MG LAST FILLED 08/27/2019 #360 90DS SPIRONOLACTONE 25MG LAST FILLED 08/22/2019 #90 90DS SIMVASTATIN 20MG LAST FILLED 09/21/2019#90 90DS NAPROXEN 375MG LAST FILLED 09/04/2019 #60 30DS GABAPENTIN 300MG LAST FILLED #90 10/22/2019 30DS -DIRECTIONS SAY TO TAKE TID BUT PATIENT TAKES 1 HS FARXIGA 10MG LAST FILLED 09/22/2019 #30 30DS OTC: OMEPRAZOLE ACETAMINOPHEN
[2019-10-30] MEDS ORDERED: proPOfol 200 MG/20 ML (DIPRIVAN) VIAL IV ONE (13:36)
[2019-10-30] MEDS ORDERED: NS IV 1000 ML 1,000 ML IV SCH (13:58)
[2019-10-30] MEDS ORDERED: PATIENT MAY USE OWN MEDS, ALL PO SCH (14:00)
[2019-10-30] MEDS ORDERED: CEFU500T63 PO (14:00)
--- NOTE | 2019-10-30 14:00 | Discharge Inst-Post CATH ---
Discharge Inst-CATH/EP Problems Reviewed?: Yes Post Cardiac Cath/EP D/C Inst Follow Up/Plan Appointment with Dr. CHACON's office next week <b>CARDIAC CATH/EP PROCEDURE DISCHARGE INSTRUCTIONS</b> ACTIVITY * Go Home directly and rest. * Limit activity of the leg (or wrist if it was used) for 7 days including aerobics, swimming, jogging, bicycling, etc. * Restrict stair-climbing for 7 days if possible, if not, climb up with your non-cath leg, then bring together on the same step. * Avoid lifting, pushing, pulling or excessive movement of the affected extremity for 7 days. * Customary sexual activity may be resumed after 2 days-use caution not to use a position that strains or causes pain to the affected extremity. * No driving for 24 hours. * NO SMOKING. * Avoid straining for bowel movements for 7 days. * Gentle walking on level ground is allowed. * Returning to work will depend on the type of procedure and the results. Your doctor will discuss this with you. CALL YOUR DOCTOR FOR ANY OF THE FOLLOWING: *If bleeding from the puncture site occurs- Apply gentle pressure to site with clean cloth and call your doctor or EMS. * If a knot or lump forms under the skin, increases in size, or causes pain. * If bruising appears to be worsening or moving further down your leg instead of disappearing. * Temperature above 101 F. CARE OF YOUR GROIN INCISION; * Bruising or purple discoloration of the skin near the puncture site is common. * You may shower only, no bathtub bathing for 5 days. Be careful to avoid slipping as your leg may feel stiff. * If a closure device was used on your femoral artery, please see the attached guide regarding care of the device and your leg. * Leave dressing on FOR 24 hours. CARE OF YOUR WRIST INCISION; * Bruising or purple discoloration of the skin near the puncture site is common. * You may shower. * DO NOT submerge wrist. * Leave dressing on FOR 24 hours. WILLIAM CHACON MD Oct 30, 2019 14:00
--- NOTE | 2019-10-30 14:07 | ICD Change ---
ICD Generator Change Physician (s)/Games Manager (s) Physician WILLIAM CHACON MD Pre-Procedure Diagnosis Pre-Procedure Diagnosis: congestive heart failure Post-Procedure Note Procedure Start Date: Oct 30, 2019 Name of Procedure: Single chamber ICD generator replacement DFT testing Findings/Procedure Note 54 years old gentleman with history of congestive heart failure, and trigger tachycardia, had single chamber ICD implanted on January 18, 2017. On the last ICD check up it showed depletion of the battery and battery reaching AMINTA. We communicated with [employer], there is abnormality in that premature depletion of the ICD battery. Recommendation was to do ICD change. Patient was placed on the cardiac catheterization laboratory, all pros and cons were explained, conscious sedation achieved, local anesthesia applied and skin incision was made. Device was retrieved and extracted from the pocket, new [employer] device was used INVENTRA 7VR-T DX [id number] was implanted and attached to the RV lead. The lead was secured. And no complication noted. Pocket was closed without any complication. Data measurement RA sensing 1.8 mV, RV 11 mV Impedance 408 ohms, threshold pacing in the ventricle was 1.14 at 0.4 ms. DFT testing, patient was sedated with assistance assistance of anesthesia. Patient was paced at a rapid rate then our own T shock was delivered, patient went to ventricular fibrillation, received a successful shock at 20 J and it was successful in terminating the episode. Conclusion 1. Successful single-chamber ICD generator replacement with no complication 2. Successful DFT testing in terminating ventricular fibrillation with no complication Anesthesia Type: Conscious Sedation Estimated blood loss (mL): 5 ml Contrast Amount: 0 ml Post-Procedure Diagnosis Post-operative diagnosis: Congestive heart failure Ventricular tachycardia Hypertension Hyperlipidemia WILLIAM CHACON MD Oct 30, 2019 14:07
--- NOTE | 2019-10-30 14:30 | NUR ---
TALKED TO PHARMACY ABOUT MOVING THE SECOND DOSE OF ANCEF TO [id number]. PATIENT HAD A DOSE AT 1200 IN THE PLATE PRINTER. OKAYED PER JESUS THE PHARMACIST.
--- NOTE | 2019-10-30 14:50 | NUR ---
TALKED WITH PROSPER FROM [employer] COUNSEL[employer]. DR. INES WHITESIDE WITH GIVING THE SECOND DOSE OF ANCEF AROUND 1900 AND SENDING THE PATIENT HOME THEN.
--- NOTE | 2019-10-30 15:30 | NUR ---
REPORT TO KIRILL CROUCH RN
[2019-10-30] MEDS ORDERED: ceFAZolin INJECTION 1,000 MG in WATER (STERILE) FOR INJECTION 10 ML IV SCH (18:00)
== END 2019-10-30 18:20 | disposition home or self-care (01) ==
LOC: CATH 10:54 → SDC 14:20 → CATH 18:20
PROVIDERS: ATTEND Internal Medicine Cardiovascular Disease
DX: I11.0 Hypertensive heart disease with heart failure (principal); I50.9 Heart failure, unspecified; E78.5 Hyperlipidemia, unspecified; I25.10 Atherosclerotic heart disease of native coronary artery without angina pectoris; G47.33 Obstructive sleep apnea (adult) (pediatric); E11.9 Type 2 diabetes mellitus without complications; E66.01 Morbid (severe) obesity due to excess calories; Z68.41 Body mass index [BMI] 40.0-44.9, adult; Z79.84 Long term (current) use of oral hypoglycemic drugs; Z79.899 Other long term (current) drug therapy; Z20.828 Contact with and (suspected) exposure to other viral communicable diseases; Z88.5 Allergy status to narcotic agent; Z87.891 Personal history of nicotine dependence; Z80.9 Family history of malignant neoplasm, unspecified
CPT/HCPCS: 33263; 71045; 80053; 80061; 85027; 85610; 85730; 87081; 93641; C1722; U0002; 36415; 87635

== ENCOUNTER 2019-12-28 19:34 | Emergency (ER) | payer MEDICARE, OTHER ==
[~2019-12-28] VITALS: Ht 177.8 cm; Wt 136.1 kg
[~2019-12-28 19:34] MED LIST changes: +ACET-168 PO; +AMLO-251 PO; +AMOX-358 PO; +CHRO200T13 PO; -CHRO200T2 PO; +DAPA10TA PO; +GABA300C PO; +GLYB5TAB6 PO; +INSU100V5 SQ; +LISI-552 PO; +LOVA20TA2 PO; +MULT-1136 PO; +NAPR-1084 PO; +OMEP20TA7 PO; +POTA2TAB5 PO; +PRD20T PO; +SIMV20TA26 PO
[2019-12-28 19:42] VITALS: BP 168/99
[2019-12-28] MEDS ORDERED: ACHD5005 PO (19:56)
[2019-12-28] MEDS ORDERED: CEFU500T63 PO (19:56)
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
[2019-12-28] MEDS ORDERED: RX-HYDROCODONE/APAP 5/325 MG #4 TAB PK PO PRN (20:00)
[2019-12-28] MEDS ORDERED: cefTRIAXone 1,000 MG/2.86 ml vial (IM ONLY) IM SCH (20:00)
[2019-12-28] MEDS ORDERED: LIDOCAINE 1% INJ 20 ML 20 ML VIAL INJ ONE (20:00)
== END 2019-12-28 20:16 | disposition home or self-care (01) ==
LOC: EDUNIT# 19:34 → ER 19:36
DX: K08.89 Other specified disorders of teeth and supporting structures (principal); I10 Essential (primary) hypertension; E78.00 Pure hypercholesterolemia, unspecified; E11.9 Type 2 diabetes mellitus without complications; K21.9 Gastro-esophageal reflux disease without esophagitis; Z20.828 Contact with and (suspected) exposure to other viral communicable diseases; Z82.61 Family history of arthritis; Z80.0 Family history of malignant neoplasm of digestive organs; Z80.1 Family history of malignant neoplasm of trachea, bronchus and lung; Z95.810 Presence of automatic (implantable) cardiac defibrillator; Z87.891 Personal history of nicotine dependence; Z88.5 Allergy status to narcotic agent; Z79.84 Long term (current) use of oral hypoglycemic drugs; Z79.52 Long term (current) use of systemic steroids
CPT/HCPCS: 99284

== ENCOUNTER 2020-02-19 17:31 | Emergency (ER) | payer MEDICARE, OTHER ==
[~2020-02-19] VITALS: Ht 177.8 cm; Wt 136.0 kg
[2020-02-19] MEDS ORDERED: ASPIRIN 81 MG CHEW (CHILDREN'S ASA) ONE (18:12)
[2020-02-19] MEDS ORDERED: NITROGLYCERIN 0.4 MG SL TABS BTL 25'S SL ONE (18:12)
--- NOTE | 2020-02-19 18:25 | NUR ---
Pt reports, after one nitro, pain has reduced from 6/10 to 0/10.
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
[2020-02-19 18:30] LABS: BASOPHILS % (AUTO) 1 % (0-10); HEMOGLOBIN 13.6 g/dL (13.3-17.7); LYMPHOCYTES % (AUTO) 13 % (12-44); MEAN CORPUSCULAR HEMOGLOBIN 28 pg (25-34)
[2020-02-19] MEDS ORDERED: ACETAMINOPHEN 500 MG TAB (TYLENOL) PO ONE (18:30)
[2020-02-19] MEDS ORDERED: ASPIRIN 81 MG CHEW (CHILDREN'S ASA) PO ONE (18:30)
[2020-02-19] MEDS ORDERED: NS IV 1000 ML 1,000 ML IV SCH (18:30)
[2020-02-19 18:32] LABS: EOSINOPHILS # (AUTO) 0.1 10^3/uL (0.0-0.3); EOSINOPHILS % (AUTO) 2 % (0-10); HEMATOCRIT 42 % (40-54); LYMPHOCYTES # (AUTO) 0.8 10^3/uL (1.0-4.0); MEAN CORPUSCULAR HGB CONC 33 g/dL (32-36); MEAN CORPUSCULAR VOLUME 86 fL (80-99); MONOCYTES # (AUTO) 1.4 10^3/uL (0.0-1.0); MONOCYTES % (AUTO) 22 % (0-12); NEUTROPHILS # (AUTO) 3.8 10^3/uL (1.8-7.8); NEUTROPHILS % (AUTO) 61 % (42-75); PLATELET COUNT 84 10^3/uL (130-400); WHITE BLOOD COUNT 6.2 10^3/uL (4.3-11.0)
[2020-02-19 18:35] LABS: ALBUMIN 4.3 GM/DL (3.2-4.5); POTASSIUM 3.8 MMOL/L (3.6-5.0)
[2020-02-19 18:36] LABS: CALCIUM 9.3 MG/DL (8.5-10.1)
[2020-02-19 18:38] LABS: TOTAL PROTEIN 7.9 GM/DL (6.4-8.2)
[2020-02-19 18:39] LABS: BILIRUBIN,TOTAL 0.3 MG/DL (0.1-1.0)
[2020-02-19 18:41] LABS: CREATININE SERUM 1.3 MG/DL (0.60-1.30)
[2020-02-19 18:43] LABS: INR 0.9 (0.8-1.4)
[2020-02-19 18:44] LABS: MAGNESIUM 1.9 MG/DL (1.6-2.4)
[2020-02-19 18:49] LABS: ABG BASE EXCESS 2.9 MMOL/L (-2.5-2.5); ABG OXYGEN SATURATION 93 % (94-100); ABG PCO2 43 MMHG (35-45); ABG PH 7.42 (7.37-7.43); ABG PO2 73 MMHG (79-93); ABG TCO2 28.1 MMOL/L (21.0-31.0)
[2020-02-19 18:49] LABS: BAND NEUTROPHILS 0 %; BASOPHILS % (MANUAL) 0 %; EOSINOPHILS % (MANUAL) 4 %; LYMPHOCYTES % (MANUAL) 9 %; MONOCYTES % (MANUAL) 17 %; NEUTROPHILS % (MANUAL) 68 %; RBC MORPH NORMAL; REACTIVE LYMPHOCYTES 2 %
[2020-02-19 18:53] LABS: ALLENS TEST YES-POS; INSPIRED O2 RA; PATIENT TEMP 99.9; VENTILATOR NO
[2020-02-19] MEDS: NITROGLYCERIN 0.4 MG SL TABS BTL 25'S SL PRN ×2 (18:53→19:08)
--- NOTE | 2020-02-19 19:17 | Diagnostic Imaging Report ---
INDICATION: Covid positive. COMPARISON: Prior examination from 12/08/2019. FINDINGS: There is cardiomegaly. Pacemaker overlies the left hemithorax. There is no pleural effusion or pneumothorax, The mediastinum is unremarkable. There may be a minimal patchy infiltrate about the right hilum and right lung base. IMPRESSION: 1. Patchy right perihilar and basilar infiltrates possibly reflecting early pneumonia. 2. Cardiomegaly. Dictated by: Dictated on workstation # [id number]
[2020-02-19] MEDS ORDERED: ONDA4TAB11 PO (22:17)
[2020-02-19] MEDS ORDERED: BENZ100C18 PO (22:17)
[2020-02-19 22:32] VITALS: BP 126/82
== END 2020-02-19 22:30 | disposition home or self-care (01) ==
LOC: EDUNIT# 17:31 → ER 17:33
DX: U07.1 COVID-19 (principal); R07.89 Other chest pain; E11.9 Type 2 diabetes mellitus without complications; K21.9 Gastro-esophageal reflux disease without esophagitis; I10 Essential (primary) hypertension; E78.00 Pure hypercholesterolemia, unspecified; Z82.61 Family history of arthritis; Z80.0 Family history of malignant neoplasm of digestive organs; Z80.1 Family history of malignant neoplasm of trachea, bronchus and lung; Z95.810 Presence of automatic (implantable) cardiac defibrillator; Z87.891 Personal history of nicotine dependence; Z95.9 Presence of cardiac and vascular implant and graft, unspecified; Z79.52 Long term (current) use of systemic steroids; Z79.84 Long term (current) use of oral hypoglycemic drugs
CPT/HCPCS: 71045; 80053; 82805; 83690; 83735; 83874; 83880; 84145; 84484; 85007; 85027; 85379; 85610; 85730; 86141; 87804; 93041; U0002; 36415; 87635

== ENCOUNTER → 2020-02-20 | Outpatient (CLI) | payer MEDICARE ==
[~2020-02-20] VITALS: Ht 178 cm; Wt 136.0 kg
[~2020-02-20] MED LIST changes: +BAMLANIVIMAB 700 MG in NS 200 ML IV ONE; +EPINEPHrine INJECTION 1 MG/ML AMP IM PRN; +ONDA4TAB11 PO; +diphenhydrAMINE 50 MG/ML INJ (BENADRYL) IV PRN
[2020-02-20 08:42] VITALS: BP 123/78
[2020-02-20 11:10] VITALS: BP 120/78
== END ==
LOC: INFUSION 08:46
PROVIDERS: ATTEND Emergency Medicine
DX: U07.1 COVID-19 (principal)

== ENCOUNTER 2021-11-12 12:45 | Emergency (ER) | payer MEDICARE ==
[~2021-11-12] VITALS: Ht 177 cm; Wt 127.0 kg
[~2021-11-12 12:45] MED LIST changes: -BAMLANIVIMAB 700 MG in NS 200 ML IV ONE; -DOXY100C2 PO; +DOXY100C5 PO; -EPINEPHrine INJECTION 1 MG/ML AMP IM PRN; +GLBR2.5T PO; +GLBR5T PO; -GLYB2.5T4 PO; -GLYB5TAB6 PO; -LISI-552 PO; +LISI20TA26 PO; +OMEP20TA56 PO; -OMEP20TA7 PO; -OMEP40CA27 PO; +OMEP40CA6 PO; -diphenhydrAMINE 50 MG/ML INJ (BENADRYL) IV PRN
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
[2021-11-12 13:43] LABS: HEMATOCRIT 43 % (40-54); HEMOGLOBIN 14.7 g/dL (13.3-17.7); MEAN CORPUSCULAR HEMOGLOBIN 27 pg (25-34); MEAN CORPUSCULAR HGB CONC 34 g/dL (32-36)
[2021-11-12] MEDS ORDERED: ASPIRIN 81 MG CHEW (CHILDREN'S ASA) PO STA (13:44)
[2021-11-12 13:45] LABS: BASOPHILS # (AUTO) 0.1 10^3/uL (0.0-0.1); BASOPHILS % (AUTO) 1 % (0-10); EOSINOPHILS % (AUTO) 1 % (0-10); LYMPHOCYTES # (AUTO) 1.7 10^3/uL (1.0-4.0); LYMPHOCYTES % (AUTO) 26 % (12-44); MEAN CORPUSCULAR VOLUME 80 fL (80-99); MEAN PLATELET VOLUME 11.2 fL (9.0-12.2); MONOCYTES % (AUTO) 16 % (0-12); NEUTROPHILS # (AUTO) 3.8 10^3/uL (1.8-7.8); NEUTROPHILS % (AUTO) 57 % (42-75); PLATELET COUNT 86 10^3/uL (130-400); WHITE BLOOD COUNT 6.7 10^3/uL (4.3-11.0)
[2021-11-12] MEDS ORDERED: morphine INJ 10 MG/ML 1ML (SYR OR VIAL) IVP ONE (13:45)
[2021-11-12 13:53] LABS: ALBUMIN 3.9 GM/DL (3.2-4.5); CHLORIDE 96 MMOL/L (98-107); POTASSIUM 4.3 MMOL/L (3.6-5.0); SODIUM 131 MMOL/L (135-145)
[2021-11-12 13:54] LABS: CALCIUM 9.1 MG/DL (8.5-10.1)
[2021-11-12 13:55] LABS: GLUCOSE 195 MG/DL (70-105)
[2021-11-12 13:56] LABS: TOTAL PROTEIN 7.5 GM/DL (6.4-8.2)
[2021-11-12 13:57] LABS: BILIRUBIN,TOTAL 0.6 MG/DL (0.1-1.0); CARBON DIOXIDE 22 MMOL/L (21-32)
[2021-11-12 13:59] LABS: ALKALINE PHOSPHATASE 69 U/L (40-136); CREATININE SERUM 0.85 MG/DL (0.60-1.30); GFR ESTIMATED 102
[2021-11-12 14:00] LABS: BUN/CREATININE RATIO 20
[2021-11-12 14:02] LABS: ALANINE AMINOTRANSFERASE 30 U/L (0-55)
[2021-11-12 14:05] LABS: BILIRUBIN,URINE NEGATIVE (NEGATIVE); CLARITY,URINE CLEAR; COLOR,URINE YELLOW; GLUCOSE, URINE (UA) 3+ (NEGATIVE); KETONES,URINE NEGATIVE (NEGATIVE); LEUKOCYTE ESTERASE ,URINE NEGATIVE (NEGATIVE); NITRITE,URINE NEGATIVE (NEGATIVE); PROTEIN,URINE TRACE (NEGATIVE)
[2021-11-12 14:20] LABS: BACTERIA,URINE NEGATIVE /HPF; RBC,URINE RARE /HPF
--- NOTE | 2021-11-12 14:30 | Diagnostic Imaging Report ---
INDICATION: Chest pain. COMPARISON: 02/19/2020. TECHNIQUE: Two radiographs of the chest dated 11/12/2021. FINDINGS: Pacer device is again identified with the battery pack overlying the left chest. The cardiac silhouette is within normal limits in size. No significant pulmonary vascular congestion. The lungs are clear of focal pulmonary opacity. No pleural effusion. No pneumothorax. No acute osseous abnormality. IMPRESSION: No acute cardiopulmonary abnormality with stable pacer/AICD in place. Dictated by: Dictated on workstation # [id number]
[2021-11-12] MEDS ORDERED: CATHETER FLUSH 10 ML SYR IV PRN (14:45)
[2021-11-12] MEDS ORDERED: NS IV 500 ML 500 ML IV ONE (14:45)
[2021-11-12] MEDS ORDERED: NS 100 ML (IVPB) BAG IV ONE (14:45)
[2021-11-12] MEDS ORDERED: HOLD METFORMIN - RECEIVED CONTRAST 20 ML VIAL IV SCH (14:45)
[2021-11-12] MEDS ORDERED: IOHEXOL 350 MG/ML 100 ML (OMNIPAQUE 350) VIAL IV ONE (14:45)
--- NOTE | 2021-11-12 15:24 | Diagnostic Imaging Report ---
INDICATION: Weakness and fatigue. Fever. CTA chest, abdomen and pelvis. Thin axial sections through the chest, abdomen and pelvis are obtained following intravenous contrast bolus. Multiplanar MIP images were reconstructed and reviewed. All CT scans use one or more of the following dose optimizing techniques: automated exposure control, MA and/or KvP adjustment based on patient size and exam type or iterative reconstruction. COMPARISON: CT abdomen and pelvis from 09/03/2016. FINDINGS: CTA CHEST: No pulmonary emboli. Normal caliber thoracic aorta without dissection. Thyroid is normal. No supraclavicular or axillary lymphadenopathy. No mediastinal or hilar lymphadenopathy. The heart is normal in size without pericardial effusion. There is a left pectoral transvenous pacemaker with leads terminating in the right atrium and right ventricle. Moderate coronary artery calcifications. No pleural effusion or pneumothorax. No abnormality of the thyroid. There is no pneumonia or edema. No suspicious pulmonary nodule. No worrisome focal osseous lesion. CT ABDOMEN/PELVIS WITH: No free intraperitoneal air or fluid. The liver and gallbladder are normal. Spleen is mildly enlarged measuring 14.5 cm. The pancreas and adrenals are normal. No renal mass or obstructive uropathy. Urinary bladder is partially filled without wall thickening. Prostate is not enlarged. Normal appendix. No pericolonic inflammatory change or bowel obstruction. The stomach is filled with fluid and there is no wall thickening. Normal caliber abdominal aorta without dissection. No abdominal or pelvic lymphadenopathy. There are surgical changes from discectomy with posterior instrumented fusion of L5-S1. IMPRESSION: 1. No acute cardiopulmonary process. Specifically, no pulmonary emboli. 2. No acute intra-abdominal process. 3. Unchanged splenomegaly. Dictated by: Dictated on workstation # [id number]
[2021-11-12 16:25] VITALS: BP 134/80
== END 2021-11-12 16:25 | disposition home or self-care (01) ==
LOC: EDUNIT# 12:45 → ER 12:47
DX: B34.9 Viral infection, unspecified (principal); M79.10 Myalgia, unspecified site; R07.89 Other chest pain; Z20.822 Contact with and (suspected) exposure to COVID-19
CPT/HCPCS: 36415; 71045; 71275; 74177; 80053; 81000; 83880; 84484; 85025; 85379; 86141; 87636; 93005; 93041